=== PATIENT | male | born 1955 | race Caucasian/White ===

== ENCOUNTER → 2016-06-04 | Outpatient (CLI) | payer MEDICARE, OTHER ==
[2016-06-04 17:50] LABS: Basophils % (A) 1 %; CH 34.2; CHCM 32.6; Eosinophils # (A) 0.2 k/uL (0-0.7); Eosinophils % (A) 2 %; HCT 45.7 % (39.0-53.0); HDW 2.43; HGB 14.4 gm/dL (13.0-17.5); Luc # (Auto) 0.09; Luc % (Auto) 1; Lymphocytes # (A) 2.5 k/uL (1.0-4.8); Lymphocytes % (A) 32 %; MCH 33.2 pg (25.0-35.0); MCHC 31.5 g/dL (31.0-37.0); MCV 105.5 fL (80.0-100.0); Macrocytosis Slight; Mean Platelet Volume 7.4; Monocytes # (A) 0.4 k/uL (0-1.0); Monocytes % (A) 5 %; Neutrophils # (A) 4.6 k/uL (1.3-7.7); Neutrophils % (A) 60 %; RBC 4.33 m/uL (4.30-5.90); RDW 13.4 % (11.5-15.5); WBC 7.8 k/uL (3.8-10.6)
[2016-06-04 18:01] LABS: ALT 49 U/L (21-72); AST 35 U/L (17-59); Alkaline Phosphatase 60 U/L (38-126); Anion Gap 8 mmol/L; Blood Urea Nitrogen 16 mg/dL (9-20); Calcium 9.7 mg/dL (8.4-10.2); Carbon Dioxide 31 mmol/L (22-30); Chloride 105 mmol/L (98-107); Cholesterol 137 mg/dL (<200); Creatine Kinase 33 U/L (55-170); Glucose 86 mg/dL (74-99); HDL Cholesterol 31 mg/dL (40-60); Non-African American GFR(MDRD) >60 (>60 ml/min/1.73 sqM); Potassium 4.7 mmol/L (3.5-5.1); Sodium 144 mmol/L (137-145); Total Bilirubin 0.7 mg/dL (0.2-1.3); Total Protein 7.8 g/dL (6.3-8.2); Triglycerides 151 mg/dL (<150)
[2016-06-04 18:32] LABS: Hepatitis B Surface Ag Index 0.08
[2016-06-04 18:37] LABS: Hepatitis B Core IgM Index 0.03
[2016-06-04 18:51] LABS: Hepatitis C Virus IgG Ab Reactive (Negative)
[2016-06-04 19:39] LABS: Prostate Specific Antigen 1.43 ng/mL (0.00-4.00)
[2016-06-04 19:57] LABS: Vitamin B12 530 pg/mL (239-931)
[2016-06-04 20:44] LABS: Erythrocyte Sedimentation Rate 5 mm/hr (0-15)
[2016-06-05 06:48] LABS: HIV-1/HIV-2 Ab Screen NONREAC (NON REAC)
== END | disposition home or self-care (01) ==
LOC: LABWHC1 17:22
PROVIDERS: ATTEND Family Medicine
DX: Z00.00 Encounter for general adult medical examination without abnormal findings (principal); R35.1 Nocturia; Z11.59 Encounter for screening for other viral diseases
CPT/HCPCS: 36415; 80053; 80061; 80074; 82306; 82550; 82607; 84153; 84443; 85025; 85652; 87389

== ENCOUNTER 2016-06-17 22:19 | Emergency (ER) | payer MEDICARE, OTHER ==
[2016-06-17 22:38] VITALS: TEMP 98.2
[2016-06-17] MEDS ORDERED: NADOLOL 20 MG TAB PO STA ×2 (23:14→23:22)
[2016-06-17] MEDS ORDERED: ATORVASTATIN 40 MG TAB PO STA (23:23)
--- NOTE | 2016-06-17 23:28 | ED ---
General Adult HPI - General Chief complaint: Headache Stated complaint: High B/P Time Seen by Provider: 06/17/16 22:56 Source: patient, RN notes reviewed, old records reviewed Mode of arrival: ambulatory Limitations: no limitations - History of Present Illness Initial comments: Chief complaint history of present illness a 60-year-old male here with a request for his daily dose of nadolol and simvastatin. He's been off of them for 3 days his van broke down cannot get to the pharmacy where his new prescription waiting for him. Patient complains of headache. Vital signs are stable including blood pressure. Patient takes nadolol 40 mg daily. As well as simvastatin. - Related Data Home Medications Medication Instructions Recorded Confirmed Levothyroxine Sodium [Synthroid] 150 mcg PO DAILY 02/29/16 04/18/16 Simvastatin [Zocor] 40 mg PO DAILY 02/29/16 04/18/16 Nadolol 40 mg PO DAILY 03/19/16 04/18/16 Citalopram Hydrobromide [CeleXA] 40 mg PO DAILY 03/23/16 03/23/16 Levothyroxine Sodium [Synthroid] 75 mcg PO DAILY 03/23/16 03/23/16 Simvastatin [Zocor] 150 mg PO HS 03/23/16 03/24/16 Gabapentin 800 mg PO TID 03/24/16 03/24/16 Nadolol [Corgard] 20 mg PO BID 03/24/16 03/24/16 DULoxetine HCL [Cymbalta] 30 mg PO DAILY 04/18/16 04/18/16 DULoxetine HCL [Cymbalta] 60 mg PO HS 04/18/16 04/18/16 Fluticasone Nasal [place] [Flonase 1 spray EA NOSTRIL QAM 04/18/16 04/18/16 Nasal [place]] Hydrocodone/Acetaminophen [[place] 1 tab PO BID PRN 04/18/16 04/18/16 10-325] Previous Rx's Medication Instructions Recorded Cyclobenzaprine [Flexeril] 10 mg PO TID #20 tab 03/19/16 Dexamethasone 0.75 mg PO DIRECTED #12 tablet 03/19/16 HYDROcodone/APAP 5-325MG [[place] 1 tab PO Q6HR PRN #20 tab 03/24/16 5-325] Multivitamins, Thera [Multivitamin] 1 tab PO DAILY #30 tablet 03/24/16 Thiamine [Vitamin B-1] 100 mg PO BID@1200,1700 #30 tab 03/24/16 Allergies Allergy/AdvReac Type Severity Reaction Status Date / Time No Known Allergies Allergy Verified 06/17/16 22:38 Review of Systems ROS Statement: Those systems with pertinent positive or pertinent negative responses have been documented in the HPI. Review of systems patient complains of a headache. No visual acuity changes no stiff neck no nausea no vomiting no neuro deficits. All systems are reviewed. Past medical problems significant for abuse of medications including heroin and opiates prescription drugs also history of alcoholism. Medical problems include hyperlipidemia hypertension pneumonia or any thyroid disease. Surgeries back surgery and sats procedure. Family history noncontributory. No known ALLERGIES. Patient encouraged not to smoke does not drink. ROS Other: All systems not noted in ROS Statement are negative. Past Medical History Past Medical History: Hyperlipidemia, Hypertension, Pneumonia, Rheumatoid Arthritis (RA), Thyroid Disorder Additional Past Medical History / Comment(s): chronic back pain, arthritis, History of Any Multi-Drug Resistant Organisms: None Reported Past Surgical History: Back Surgery Additional Past Surgical History / Comment(s): VATS procedure many years ago, decompression and fusion L4-5 and L5-S1 with transforaminal lumbar interbody fusion Past Anesthesia/Blood Transfusion Reactions: No Reported Reaction Past Psychological History: Anxiety, Bipolar, Depression Smoking Status: Current every day smoker Past Alcohol Use History: Abuse, Heavy, None Reported Additional Past Alcohol Use History / Comment(s): Patient is a smoker one and half packs per day since he was 13 years of age. He has history of alcohol abuse and was drinking a case of beer and a half of a fifth per day but sober for 5 years. Recent use of heroin IV. He denies any marijuana or medical marijuana use. He states he is currently homeless. Past Drug Use History: Heroin, Opiates, Prescription Drug Abuse - Past Family History Father Additional Family Medical History / Comment(s): at age 85 from metastatic cancer of unknown primary. Brother(s) Additional Family Medical History / Comment(s): Patient states he had 10 brothers and sisters and all have passed from either alcoholism or old age. Daughter(s) Additional Family Medical History / Comment(s): Patient has 4 daughters and 2 sons with no major medical problems. Mother Family Medical History: No Reported History General Exam - General Exam Comments Initial Comments: General: The patient is awake and alert, in no distress, and does not appear acutely ill. States he has not had his nadolol for 3 days. Vital signs show temperature 98.2 respiratory rate 18 pulse 87 pulse ox 95% room air blood pressure 129/82. Mildly elevated systolic diastolic noted. Eye: Pupils are equal, round and reactive to light, extra-ocular movements are intact ; there is normal conjunctiva bilaterally. No signs of icterus. Ears, nose, mouth and throat: There are moist mucous membranes and no oral lesions. Neck: The neck is supple, there is no tenderness . Cardiovascular: There is a regular rate and rhythm. No murmur, rub or gallop is appreciated. Respiratory: Lungs are clear to auscultation, respirations are non-labored, breath sounds are equal. No wheezes, stridor, rales, or rhonchi. Gastrointestinal: Soft, non-distended, non-tender abdomen without masses or organomegaly noted. There is no rebound or guarding present. No CVA tenderness. Bowel sounds are unremarkable. Back: There is no tenderness to palpation in the midline. There is no obvious deformity. No rashes noted. Musculoskeletal: Normal ROM, no tenderness, There is no pedal edema. There is no calf tenderness or swelling. Sensation intact. Pulses equal bilaterally 2+. Neurological: No neuro deficits noted. Patient alert and oriented. No focal or lateralizing findings. Skin: Skin is warm and dry and no rashes or lesions are noted. Limitations: no limitations Course Vital Signs 06/17/16 22:36 Temperature 98.2 F Pulse Rate 87 Respiratory 18 Rate Blood Pressure 129/82 O2 Sat by Pulse 95 Oximetry Medical Decision Making - Medical Decision Making Medical decision making the patient will take 40 mg tonight he'll be given 40 mg tablet for Corgard tomorrow. And simvastatin this evening. He reports his medications awaiting for him at the pharmacy and he'll take a bus to get that tomorrow. Disposition Clinical Impression: Medication refill Disposition: HOME SELF-CARE Condition: Good Instructions: Medicine Refill (ED) Additional Instructions: Continue with her home medications. Follow-up with her family physician Time of Disposition: 23:28
[2016-06-17 23:45] VITALS: BP 138/81; PULSE 69; RESP 16
== END 2016-06-17 23:43 | disposition home or self-care (01) ==
LOC: EC 22:19
DX: Z76.0 Encounter for issue of repeat prescription (principal); R51 Headache; I10 Essential (primary) hypertension; Z79.899 Other long term (current) drug therapy; E78.5 Hyperlipidemia, unspecified; M06.9 Rheumatoid arthritis, unspecified; E07.9 Disorder of thyroid, unspecified; F41.9 Anxiety disorder, unspecified; F31.9 Bipolar disorder, unspecified; F17.200 Nicotine dependence, unspecified, uncomplicated; Z79.51 Long term (current) use of inhaled steroids; Z79.52 Long term (current) use of systemic steroids; Z59.0 Homelessness
CPT/HCPCS: 99283

== ENCOUNTER 2017-06-25 05:34 | Emergency (ER) | payer MEDICARE, OTHER ==
[2017-06-25 05:41] VITALS: RESP 18
[2017-06-25 06:32] LABS: Basophils # (A) 0.1 k/uL (0-0.2); Basophils % (A) 1 %; Eosinophils # (A) 0.2 k/uL (0-0.7); Eosinophils % (A) 3 %; HCT 43.5 % (39.0-53.0); HGB 14.1 gm/dL (13.0-17.5); Lymphocytes # (A) 2.6 k/uL (1.0-4.8); Lymphocytes % (A) 33 %; MCH 33.9 pg (25.0-35.0); MCHC 32.4 g/dL (31.0-37.0); MCV 104.6 fL (80.0-100.0); Macrocytosis Slight; Mean Platelet Volume 6.7; Monocytes # (A) 0.6 k/uL (0-1.0); Monocytes % (A) 7 %; Neutrophils # (A) 4.3 k/uL (1.3-7.7); Neutrophils % (A) 55 %; Platelet Count 209 k/uL (150-450); RBC 4.16 m/uL (4.30-5.90); RDW 13.8 % (11.5-15.5); WBC 7.9 k/uL (3.8-10.6)
[2017-06-25] MEDS ORDERED: MORPHINE SULFATE 4 MG/ML SYRINGE IV STA (06:40)
[2017-06-25 06:41] LABS: Appearance,Urine Clear (Clear); Bilirubin,Urine Negative (Negative); Blood,Urine Moderate (Negative); Color,Urine Yellow; Glucose,Urine (UA) Negative (Negative); Ketones,Urine Negative (Negative); Leukocyte Esterase,Urine Trace (Negative); Mucus,Urine Rare /hpf; Nitrite,Urine Negative (Negative); Protein,Urine Negative (Negative); RBC,Urine 88 /hpf (0-5); Specific Gravity,Urine 1.013 (1.001-1.035); Urobilinogen,Urine <2.0 mg/dL (<2.0); WBC,Urine 20 /hpf (0-5)
[2017-06-25 06:44] LABS: ALT 37 U/L (21-72); AST 37 U/L (17-59); Albumin 4.3 g/dL (3.5-5.0); Alkaline Phosphatase 63 U/L (38-126); Amylase 38 U/L (30-110); Anion Gap 12 mmol/L; Blood Urea Nitrogen 17 mg/dL (9-20); Calcium 9.6 mg/dL (8.4-10.2); Carbon Dioxide 26 mmol/L (22-30); Chloride 108 mmol/L (98-107); Glucose 131 mg/dL (74-99); Lipase 63 U/L (23-300); Potassium 4.5 mmol/L (3.5-5.1); Sodium 146 mmol/L (137-145); Total Bilirubin 0.5 mg/dL (0.2-1.3); Total Protein 7.9 g/dL (6.3-8.2)
--- NOTE | 2017-06-25 06:53 | ED ---
Abdominal Pain HPI - General Source: patient, EMS Mode of arrival: EMS Limitations: no limitations - History of Present Illness MD Complaint: abdominal pain Onset/Timin -: days(s) Location: LLQ Radiation: L flank Migration to: no migration Severity: severe Quality: sharp Consistency: constant Improves With: nothing Worsens With: nothing Associated Symptoms: constipation <Star Valerio - Last Filed: 06/25/17 06:53> <Vitaliy Gill - Last Filed: 06/25/17 08:29> - General Chief Complaint: Abdominal Pain Stated Complaint: Abdominal Pain Time Seen by Provider: 06/25/17 05:45 - History of Present Illness Initial Comments: This patient is a 61-year-old man who presents to be evaluated for left lower quadrant pain. He states that the pain first came on Saturday more moderate. He states that over the course of tonight the pain had intensified she decided to be seen here. He describes the pain as sharp, constant, and now severe intensity. He has not noted any relieving factors, and states that the pain is worse if he presses on it. Patient denies vomiting. He states that it has been approximately 3-4 days since his last bowel movement which is a little unusual for him. He denied any change in urination. There is no scrotal or testicular pain or swelling. No urethral discharge. (Star Vaelrio) - Related Data Home Medications Medication Instructions Recorded Confirmed Simvastatin [Zocor] 40 mg PO DAILY 02/29/16 06/25/17 RX: Nadolol 40 mg PO DAILY 03/19/16 06/25/17 RX: Gabapentin 800 mg PO TID 03/24/16 06/25/17 Hydrocodone/Acetaminophen [[place] 1 tab PO QID PRN 04/18/16 06/25/17 10-325] ALPRAZolam [Xanax] 2 mg PO HS PRN 06/25/17 06/25/17 Dextroamphetamine/Amphetamine 20 mg PO BID 06/25/17 06/25/17 [Adderall] Diazepam [Valium] 5 mg PO TID PRN 06/25/17 06/25/17 Levothyroxine Sodium [Synthroid] 150 mcg PO DAILY 06/25/17 06/25/17 Venlafaxine HCl [Effexor XR] 150 mg PO DAILY 06/25/17 06/25/17 Previous Rx's Medication Instructions Recorded RX: HYDROcodone/APAP 5-325MG 1 tab PO Q6HR PRN #20 tab 06/25/17 [[place] 5-325] RX: Naproxen [Naprosyn] 500 mg PO Q12HR PRN #30 tab 06/25/17 RX: Tamsulosin [Flomax] 0.4 mg PO DAILY #7 cap 06/25/17 Allergies Allergy/AdvReac Type Severity Reaction Status Date / Time No Known Allergies Allergy Verified 06/25/17 08:03 Review of Systems ROS Other: All systems not noted in ROS Statement are negative. Constitutional: Denies: fever, chills Respiratory: Denies: cough, dyspnea Cardiovascular: Denies: chest pain, palpitations, edema Gastrointestinal: Reports: abdominal pain, nausea, constipation. Denies: vomiting, diarrhea, melena, hematochezia Genitourinary: Denies: dysuria, frequency, hematuria, testicular pain, testicular mass Musculoskeletal: Denies: back pain Skin: Denies: rash Neurological: Denies: headache, weakness, numbness <Star Valerio - Last Filed: 06/25/17 06:53> ROS Other: All systems not noted in ROS Statement are negative. <Vitaliy Gill - Last Filed: 06/25/17 08:29> ROS Statement: Those systems with pertinent positive or pertinent negative responses have been documented in the HPI. Past Medical History Past Medical History: Hyperlipidemia, Hypertension, Pneumonia, Rheumatoid Arthritis (RA), Thyroid Disorder Additional Past Medical History / Comment(s): chronic back pain, arthritis, History of Any Multi-Drug Resistant Organisms: None Reported Past Surgical History: Back Surgery Additional Past Surgical History / Comment(s): VATS procedure many years ago, decompression and fusion L4-5 and L5-S1 with transforaminal lumbar interbody fusion Past Anesthesia/Blood Transfusion Reactions: No Reported Reaction Past Psychological History: Anxiety, Bipolar, Depression Smoking Status: Current every day smoker Past Alcohol Use History: Abuse, Heavy, None Reported Past Drug Use History: Heroin, Opiates, Prescription Drug Abuse - Past Family History Father Additional Family Medical History / Comment(s): at age 85 from metastatic cancer of unknown primary. Brother(s) Additional Family Medical History / Comment(s): Patient states he had 10 brothers and sisters and all have passed from either alcoholism or old age. Daughter(s) Additional Family Medical History / Comment(s): Patient has 4 daughters and 2 sons with no major medical problems. Mother Family Medical History: No Reported History <GregorStar iverson - Last Filed: 06/25/17 06:53> General Exam Limitations: no limitations General appearance: alert, in no apparent distress Head exam: Present: atraumatic, normocephalic Eye exam: Present: normal appearance. Absent: scleral icterus, conjunctival injection Respiratory exam: Present: normal lung sounds bilaterally. Absent: respiratory distress, wheezes, rales, rhonchi, stridor Cardiovascular Exam: Present: normal rhythm, bradycardia, normal heart sounds. Absent: systolic murmur, diastolic murmur, rubs, gallop GI/Abdominal exam: Present: soft. Absent: distended, tenderness, guarding, rebound, rigid, mass, pulsatile mass Extremities exam: Present: normal inspection, normal capillary refill. Absent: pedal edema, calf tenderness Back exam: Present: normal inspection. Absent: CVA tenderness (R), CVA tenderness (L) Neurological exam: Present: alert Skin exam: Present: warm, dry, intact, normal color. Absent: rash <ImanStar - Last Filed: 06/25/17 06:53> Course <ImanStar - Last Filed: 06/25/17 06:53> <Vitaliy Gill - Last Filed: 06/25/17 08:29> Vital Signs 06/25/17 06/25/17 05:35 07:16 Temperature 97.7 F 97.7 F Pulse Rate 54 L 56 L Respiratory 18 18 Rate Blood Pressure 155/77 155/77 O2 Sat by Pulse 100 98 Oximetry - Reevaluation(s) Reevaluation #1: 06/25/17 08:28 Is adequate pain control at this time (Vitaliy Gill) Medical Decision Making - Lab Data Result diagrams: 06/25/17 06:20 06/25/17 06:20 <ImanStar - Last Filed: 06/25/17 06:53> - Lab Data Result diagrams: 06/25/17 06:20 06/25/17 06:20 - Radiology Data Radiology results: report reviewed (CT abdomen and pelvis positive left kidney stone), image reviewed <Vitaliy Gill - Last Filed: 06/25/17 08:29> - Medical Decision Making 61 male the ER with left flank pain. Positive kidney stone. Patient discharged home with pain control, encouraged increased IV fluids and oral fluids (Vitaliy Gill) - Lab Data Lab Results 06/25/17 06/25/17 06/25/17 Range/Units 06:20 06:20 06:20 WBC 7.9 (3.8-10.6) k/uL RBC 4.16 L (4.30-5.90) m/uL Hgb 14.1 (13.0-17.5) gm/dL Hct 43.5 (39.0-53.0) % MCV 104.6 H (80.0-100.0) fL MCH 33.9 (25.0-35.0) pg MCHC 32.4 (31.0-37.0) g/dL RDW 13.8 (11.5-15.5) % Plt Count 209 (150-450) k/uL Neutrophils % 55 % Lymphocytes % 33 % Monocytes % 7 % Eosinophils % 3 % Basophils % 1 % Neutrophils # 4.3 (1.3-7.7) k/uL Lymphocytes # 2.6 (1.0-4.8) k/uL Monocytes # 0.6 (0-1.0) k/uL Eosinophils # 0.2 (0-0.7) k/uL Basophils # 0.1 (0-0.2) k/uL Macrocytosis Slight Sodium 146 H (137-145) mmol/L Potassium 4.5 (3.5-5.1) mmol/L Chloride 108 H (98-107) mmol/L Carbon Dioxide 26 (22-30) mmol/L Anion Gap 12 mmol/L BUN 17 (9-20) mg/dL Creatinine 1.07 (0.66-1.25) mg/dL Est GFR (MDRD) Af Amer >60 (>60 ml/min/1.73 sqM) Est GFR (MDRD) Non-Af >60 (>60 ml/min/1.73 sqM) Glucose 131 H (74-99) mg/dL Calcium 9.6 (8.4-10.2) mg/dL Total Bilirubin 0.5 (0.2-1.3) mg/dL AST 37 (17-59) U/L ALT 37 (21-72) U/L Alkaline Phosphatase 63 (38-126) U/L Total Protein 7.9 (6.3-8.2) g/dL Albumin 4.3 (3.5-5.0) g/dL Amylase 38 (30-110) U/L Lipase 63 (23-300) U/L Urine Color Yellow Urine Appearance Clear (Clear) Urine pH 6.0 (5.0-8.0) Ur Specific [place] 1.013 (1.001-1.035) Urine Protein Negative (Negative) Urine Glucose (UA) Negative (Negative) Urine Ketones Negative (Negative) Urine Blood Moderate H (Negative) Urine Nitrite Negative (Negative) Urine Bilirubin Negative (Negative) Urine Urobilinogen <2.0 (<2.0) mg/dL Ur Leukocyte Esterase Trace H (Negative) Urine RBC 88 H (0-5) /hpf Urine WBC 20 H (0-5) /hpf Urine Mucus Rare H (None) /hpf Disposition <Star Valerio - Last Filed: 06/25/17 06:53> <Vitaliy Gill - Last Filed: 06/25/17 08:29> Clinical Impression: Calculus of left kidney Disposition: HOME SELF-CARE Condition: Good Instructions: Kidney Stones (ED) Prescriptions: RX: HYDROcodone/APAP 5-325MG [[place] 5-325] 1 tab PO Q6HR PRN #20 tab PRN Reason: Pain RX: Naproxen [Naprosyn] 500 mg PO Q12HR PRN #30 tab PRN Reason: Pain RX: Tamsulosin [Flomax] 0.4 mg PO DAILY #7 cap Referrals: Sixto Moy MD [Primary Care Provider] - 1-2 days
--- NOTE | 2017-06-25 08:10 | CT ---
EXAMINATION TYPE: CT abdomen pelvis wo con DATE OF EXAM: 06/25/2017 COMPARISON: NONE HISTORY: 61-year-old male stabbing Lt sided pain CT DLP: 389.1 mGycm. Automated exposure control for dose reduction was used. TECHNIQUE: Contiguous axial scanning of the abdomen and pelvis without IV contrast. Coronal and sagit patricia reconstructions performed. FINDINGS: Ectatic ascending aorta at 3.8 cm. Coronary vessel calcifications are present and are remarkable for coronary artery disease. Heart normal size without pericardial effusion. Mild dependent atelectasis a t the lung bases. Suggestion of some calcifications or old surgical material right middle lobe. Noncontrast appearance of the liver, adrenal glands, right kidney, spleen, and pancreas appears withi n normal limits. Gallbladder is hydropic measuring 4.8 cm wide. There is mild left-sided hydronephrosis. Punctate 2 mm nonobstructive calculus in the left lower pole calyx. Mild left hydroureter with a 7 mm elongated calculus in the distal left ureter. Evta-au-iozyylem atherosclerotic calcifications within the abdominal aorta and iliac arteries. Mildly dilated single loop of jejunum in the left mid abdomen likely transient. No discrete transitio n point. No mesenteric or retroperitoneal lymphadenopathy. No free air or free fluid. Mild sigmoid diverticulosis. Moderate stool burden. No pericolonic inflammatory change. Prostate gland prominent at 4.6 cm wide. Central prostatic calcifications. Mild circumferential bladd er wall thickening. No abnormal fluid collection in the pelvis or pelvic lymphadenopathy. Bones: Degenerative changes of the hips. Posterior and interbody L4-S1 fusion changes. No osseous evert tructive process. IMPRESSION: 1. A 7 mm ovoid calculus at the distal left ureter with mild obstructive uropathy. 2. Hydropic gallbladder measuring 4.8 cm wide. This can be seen in the setting of fasting state. Cli nically correlate. If right upper quadrant pain or concern for early acute cholecystitis, follow-up u ltrasound or HIDA scan. 3. Mild circumferential bladder wall thickening could represent cystitis or chronic bladder wall hyp ertrophy. 4. Sigmoid diverticulosis. Moderate stool burden.
[2017-06-25] MEDS ORDERED: SODIUM CHLORIDE 0.9% 500 ML IV STA (08:26)
[2017-06-25] MEDS ORDERED: TAMSULOSIN 0.4 MG CAP.ER.24H PO STA (08:26)
[2017-06-25] MEDS ORDERED: KETOROLAC 30 MG/ML 1 ML VIAL IVP STA (08:26)
[2017-06-25 09:00] VITALS: BP 145/76; PULSE 76; TEMP 98
== END 2017-06-25 09:01 | disposition home or self-care (01) ==
LOC: EC 05:34
DX: N20.0 Calculus of kidney (principal); R00.1 Bradycardia, unspecified; K59.00 Constipation, unspecified; E78.5 Hyperlipidemia, unspecified; I10 Essential (primary) hypertension; F32.9 Major depressive disorder, single episode, unspecified; F41.9 Anxiety disorder, unspecified; E07.9 Disorder of thyroid, unspecified; F17.200 Nicotine dependence, unspecified, uncomplicated; Z79.899 Other long term (current) drug therapy
CPT/HCPCS: 36415; 80053; 82150; 83690; 85025; 81001; 74176; 99285; 96374; 96375; J2270; J1885

== ENCOUNTER 2017-07-03 10:42 | Inpatient (IN) | payer MEDICARE, MEDICAID ==
--- NOTE | 2017-07-03 11:44 | ED ---
General Adult HPI - General Chief complaint: Psychiatric Symptoms Stated complaint: MENTAL HEALTH Time Seen by Provider: 07/03/17 10:55 Source: patient, RN notes reviewed Mode of arrival: ambulatory Limitations: no limitations - History of Present Illness Initial comments: This is a 61-year-old male who presents emergency Department complaining that he is depressed and having suicidal thoughts. Patient states this is a chronic state for him over the last week since she's had to move out of his daughter's apartment he's been much more depressed and been thinking of suicide more often. Patient does not have a specific plan however he states it's not hurt to something such as jumping in front of a car. Patient denies any physical complaints today. Patient denies headache patient denies numbness weakness per patient denies lightheadedness dizziness or near syncopal episode. Patient denies chest pain difficulty breathing shortness of breath. Patient denies abdominal pain patient denies nausea vomiting diarrhea. - Related Data Home Medications Medication Instructions Recorded Confirmed Simvastatin [Zocor] 40 mg PO DAILY 02/29/16 07/03/17 Nadolol 40 mg PO DAILY 03/19/16 07/03/17 Gabapentin 800 mg PO TID 03/24/16 07/03/17 ALPRAZolam [Xanax] 2 mg PO HS PRN 06/25/17 07/03/17 Dextroamphetamine/Amphetamine 20 mg PO BID 06/25/17 07/03/17 [Adderall] Diazepam [Valium] 5 mg PO TID PRN 06/25/17 07/03/17 Levothyroxine Sodium [Synthroid] 150 mcg PO DAILY 06/25/17 07/03/17 Venlafaxine HCl [Effexor XR] 150 mg PO DAILY 06/25/17 07/03/17 methylPREDNISolone Dose Pack See Taper PO DAILY 07/03/17 07/03/17 [Medrol Dose Pack] Previous Rx's Medication Instructions Recorded HYDROcodone/APAP 5-325MG [[place] 1 tab PO Q6HR PRN #20 tab 06/25/17 5-325] Naproxen [Naprosyn] 500 mg PO Q12HR PRN #30 tab 06/25/17 Tamsulosin [Flomax] 0.4 mg PO DAILY #7 cap 06/25/17 Allergies Allergy/AdvReac Type Severity Reaction Status Date / Time No Known Allergies Allergy Verified 07/03/17 11:08 Review of Systems ROS Statement: Those systems with pertinent positive or pertinent negative responses have been documented in the HPI. ROS Other: All systems not noted in ROS Statement are negative. Past Medical History Past Medical History: Hyperlipidemia, Hypertension, Pneumonia, Rheumatoid Arthritis (RA), Thyroid Disorder Additional Past Medical History / Comment(s): chronic back pain, arthritis, History of Any Multi-Drug Resistant Organisms: None Reported Past Surgical History: Back Surgery Additional Past Surgical History / Comment(s): VATS procedure many years ago, decompression and fusion L4-5 and L5-S1 with transforaminal lumbar interbody fusion Past Anesthesia/Blood Transfusion Reactions: No Reported Reaction Past Psychological History: Anxiety, Bipolar, Depression Smoking Status: Current every day smoker Past Alcohol Use History: Abuse, Heavy, None Reported Past Drug Use History: Heroin, Opiates, Prescription Drug Abuse - Past Family History Father Additional Family Medical History / Comment(s): at age 85 from metastatic cancer of unknown primary. Brother(s) Additional Family Medical History / Comment(s): Patient states he had 10 brothers and sisters and all have passed from either alcoholism or old age. Daughter(s) Additional Family Medical History / Comment(s): Patient has 4 daughters and 2 sons with no major medical problems. Mother Family Medical History: No Reported History General Exam - General Exam Comments Initial Comments: GENERAL: Patient is well-developed and well-nourished. Patient is nontoxic and well- hydrated and is in no acute distress. ENT: Neck is soft and supple. No significant lymphadenopathy is noted. Oropharynx is clear. Moist mucous membranes. Neck has full range of motion without eliciting any pain. EYES: The sclera were anicteric and conjunctiva were pink and moist. Extraocular movements were intact and pupils were equal round and reactive to light. Eyelids were unremarkable. PULMONARY: Unlabored respirations. Good breath sounds bilaterally. No audible rales rhonchi or wheezing was noted. CARDIOVASCULAR: There is a regular rate and rhythm without any murmurs gallops or rubs. ABDOMEN: Soft and nontender with normal bowel sounds. SKIN: Skin is clear with no lesions or rashes and otherwise unremarkable. NEUROLOGIC: Patient is alert and oriented x3. Cranial nerves II through XII are grossly intact. Motor and sensory are also intact. Normal speech, volume and content. Symmetrical smile. MUSCULOSKELETAL: Normal extremities with adequate strength and full range of motion. LYMPHATICS: No significant lymphadenopathy is noted PSYCHIATRIC: Patient states he is depressed and been thinking of suicide more often. Patient does not have a specific plan. Limitations: no limitations Course Vital Signs 07/03/17 07/03/17 10:53 13:50 Temperature 98.6 F 98.7 F Pulse Rate 61 87 Respiratory 18 18 Rate Blood Pressure 208/97 129/67 O2 Sat by Pulse 99 98 Oximetry Medical Decision Making - Medical Decision Making EPS came down and evaluated the patient and determined that the patient needs to be admitted. - Lab Data Lab Results 07/03/17 Range/Units 13:46 Urine Opiates Screen Not Detected (NotDetected) Ur Oxycodone Screen Not Detected (NotDetected) Urine Methadone Screen Not Detected (NotDetected) Ur Propoxyphene Screen Not Detected (NotDetected) Ur Barbiturates Screen Not Detected (NotDetected) U Tricyclic Antidepress Not Detected (NotDetected) Ur Phencyclidine Scrn Not Detected (NotDetected) Ur Amphetamines Screen Not Detected (NotDetected) U Methamphetamines Scrn Not Detected (NotDetected) U Benzodiazepines Scrn Detected H (NotDetected) Urine Cocaine Screen Detected H (NotDetected) U Marijuana (THC) Screen Not Detected (NotDetected) Disposition Clinical Impression: Depression, Suicidal ideation Disposition: ADMITTED IP TO THIS HOSP Time of Disposition: 14:59
[2017-07-03] MEDS ORDERED: HYDROcodone/APAP 5-325MG 1 EACH TAB PO STA (12:00)
[2017-07-03 14:05] LABS: Amphetamine Screen,Urine Not Detected (NotDetected); Barbiturate Screen,Urine Not Detected (NotDetected); Benzodiazepines Screen,Urine Detected (NotDetected); Cocaine Screen,Urine Detected (NotDetected); Methadone Screen, Urine Not Detected (NotDetected); Opiate Screen,Urine Not Detected (NotDetected); Oxycodone Screen, Urine Not Detected (NotDetected); Phencyclidine Screen,Urine Not Detected (NotDetected); Tricyclic Antidepressant,Urine Not Detected (NotDetected); Urn Cannabinoid Scrn Not Detected (NotDetected)
[2017-07-03] MEDS ORDERED: ACETAMINOPHEN TAB 325 MG TAB PO PRN (14:41)
[2017-07-03] MEDS ORDERED: MAG HYDROX/AL HYDROX/SIMETH 30 ML CUP PO PRN (14:41)
[2017-07-03] MEDS ORDERED: MAGNESIUM HYDROXIDE 2,400 MG/10 ML CUP PO PRN (14:41)
[2017-07-03] MEDS ORDERED: ZIPRASIDONE 20 MG VIAL IM PRN (14:41)
[2017-07-03 15:12] VITALS: BMI 26.0
[2017-07-03] MEDS: NICOTINE 21MG/24HR PATCH TRANSDERM SCH (15:27)
[2017-07-03] MEDS: GABAPENTIN 400 MG CAP PO SCH ×2 (15:27→21:06)
[2017-07-03] MEDS: LORazepam 1 MG TAB PO SCH ×2 (15:28→21:06)
--- NOTE | 2017-07-03 23:45 | P.MDCNMH ---
History of Present Illness H&P Date: 07/03/17 Chief Complaint: Depression Patient is a 61-year-old male with a known history of depression, hyperlipidemia , hypothyroidism, rheumatoid arthritis and chronic leg and back pain and history of sciatic nerve pain as well as smoking was admitted to hospital with depression and suicidal ideation.Patient states this is a chronic state for him over the last week since she's had to move out of his daughter's apartment he's been much more depressed and been thinking of suicide more often. Patient does not have a specific plan however he states it's not hurt to something such as jumping in front of a car. Patient denies any physical complaints today. Patient denies headache patient denies numbness weakness per patient denies lightheadedness dizziness or near syncopal episode. Patient denies chest pain difficulty breathing shortness of breath. Patient denies abdominal pain patient denies nausea vomiting diarrhea. Patient states he takes [place] and Valium and Neurontin at home. UDS is positive for benzodiazepines and cocaine Review of Systems Constitutional: Patient denies any fever or chills . No generalized weakness or weight loss. Abdomen: Patient denied nausea vomiting and diarrhea and abdominal pain. Cardiovascular: Patient denies any chest pain or short of breath no palpitations. Respiratory: patient denied any cough is from production. No shortness of breath Neurologic: Patient denied any numbness or tingling headache. Musculoskeletal: Patient denies any complaints of joint swelling or deformity. Skin: Negative Psychiatric: Depressive Endocrine: No heat or cold intolerance. No recent weight gain. Genitourinary: No dysuria or hematuria. All other 14 point ROS negative except the above Past Medical History Past Medical History: Hyperlipidemia, Hypertension, Pneumonia, Rheumatoid Arthritis (RA), Thyroid Disorder Additional Past Medical History / Comment(s): chronic back pain, arthritis, History of Any Multi-Drug Resistant Organisms: None Reported Past Surgical History: Back Surgery Additional Past Surgical History / Comment(s): VATS procedure many years ago, decompression and fusion L4-5 and L5-S1 with transforaminal lumbar interbody fusion Past Anesthesia/Blood Transfusion Reactions: No Reported Reaction Past Psychological History: Anxiety, Bipolar, Depression Smoking Status: Current every day smoker Past Alcohol Use History: Abuse, Heavy, None Reported Additional Past Alcohol Use History / Comment(s): Patient is a smoker one and half packs per day since he was 13 years of age. He has history of alcohol abuse and was drinking a case of beer and a half of a fifth per day but sober for 5 years. Use of heroin a few months ago. He denies any marijuana or medical marijuana use. He states he is currently homeless. Past Drug Use History: Heroin, Opiates, Prescription Drug Abuse - Past Family History Father Additional Family Medical History / Comment(s): at age 85 from metastatic cancer of unknown primary. Brother(s) Additional Family Medical History / Comment(s): Patient states he had 10 brothers and sisters and all have passed from either alcoholism or old age. Daughter(s) Additional Family Medical History / Comment(s): Patient has 4 daughters and 2 sons with no major medical problems. Mother Family Medical History: No Reported History Medications and Allergies Home Medications Medication Instructions Recorded Confirmed Type Simvastatin [Zocor] 40 mg PO DAILY 02/29/16 07/03/17 History Nadolol 40 mg PO DAILY 03/19/16 07/03/17 History Gabapentin 800 mg PO TID 03/24/16 07/03/17 History ALPRAZolam [Xanax] 2 mg PO HS PRN 06/25/17 07/03/17 History Dextroamphetamine/Amphetamine 20 mg PO BID 06/25/17 07/03/17 History [Adderall] Diazepam [Valium] 5 mg PO TID PRN 06/25/17 07/03/17 History HYDROcodone/APAP 5-325MG [[place] 1 tab PO Q6HR PRN #20 tab 06/25/17 07/03/17 Rx 5-325] Levothyroxine Sodium [Synthroid] 150 mcg PO DAILY 06/25/17 07/03/17 History Tamsulosin [Flomax] 0.4 mg PO DAILY #7 cap 06/25/17 07/03/17 Rx Venlafaxine HCl [Effexor XR] 150 mg PO DAILY 06/25/17 07/03/17 History methylPREDNISolone Dose Pack See Taper PO DAILY 07/03/17 07/03/17 History [Medrol Dose Pack] Allergies Allergy/AdvReac Type Severity Reaction Status Date / Time No Known Allergies Allergy Verified 07/03/17 15:12 Physical Exam Vitals: Vital Signs Temp Pulse Pulse Resp BP BP Pulse Ox 03/07/18 15:04 97.6 F 54 L 20 128/73 07/03/17 13:50 98.7 F 87 18 129/67 98 07/03/17 10:53 98.6 F 61 18 208/97 99 Intake and Output 07/03/17 07/03/17 07/04/17 14:59 22:59 06:59 Other: Weight 74.843 kg 77.791 kg Patient Weight 07/04/17 06:59 Weight 77.791 kg PHYSICAL EXAMINATION: Patient is lying in the bed comfortably, no acute distress, awake alert and oriented.. HEENT: Normocephalic. Neck is supple. Pupils reactive. Nostrils clear. Oral cavity is moist. Ears reveal no drainage. Neck reveals no JVD, carotid bruits, or thyromegaly. CHEST EXAMINATION: Trachea is central. Symmetrical expansion. Lung brandon clear to auscultation and percussion. CARDIAC: Normal S1, S2 with no gallops. No murmurs ABDOMEN: Soft. Bowel sounds normal. No organomegaly. No abdominal bruits. Extremities: reveal no edema. No clubbing or cyanosis Neurologically awake, alert, oriented x3 with well-coordinated movements. No focal deficits noted Skin: No rash or skin lesions. Psychiatric: Coperative. Nonsuicidal at this time. Depressed Musculoskeletal: No joint swelling or deformity. Normal range of motion. Cranial Nerve Examination - Cranial Nerves Cranial Nerve I- Olfactory: Intact Cranial Nerve II- Optic: Intact Cranial Nerve III- Oculomotor: Intact Cranial Nerve IV- Trochlear: Intact Cranial Nerve V- Trigeminal: Intact Cranial Nerve - Abducens: Intact Cranial Nerve VII- Facial: Intact Cranial Nerve VIII- Auditory: Intact Cranial Nerve IX- Glossopharyngeal: Intact Cranial Nerve X- Vagus: Intact Cranial Nerve XI- Accessory: Intact Cranial Nerve XII- Hypoglossal: Intact Results Labs: Abnormal Lab Results - Last 24 Hours (Table) 07/03/17 Range/Units 13:46 U Benzodiazepines Scrn Detected H (NotDetected) Urine Cocaine Screen Detected H (NotDetected) Assessment and Plan Assessment: Depression with suicidal ideation Polysubstance abuse with UDS positive for benzodiazepines and cocaine Nicotine addiction Hypertension Hyperlipidemia Hypothyroidism History of rheumatoid arthritis Sciatic nerve pain Chronic leg and back pain Plan: Patient will be continued on home medications including Narco for pain. Will hold benzodiazepines and monitor for any withdrawals. Continue the pain management. Otherwise continue the current management and further recommendations based on the clinical course. Patient was counseled for substance abuse as well as nicotine addiction. We will continue to follow with you Thank you for your consult Time with Patient: Greater than 30
[2017-07-04] MEDS: LEVOTHYROXINE 75 MCG TAB PO SCH (06:08)
[2017-07-04] MEDS: LORazepam 1 MG TAB PO SCH ×3 (08:34→20:45)
[2017-07-04] MEDS: GABAPENTIN 400 MG CAP PO SCH ×3 (08:34→20:45)
[2017-07-04] MEDS: NICOTINE 21MG/24HR PATCH TRANSDERM SCH (08:34)
[2017-07-04] MEDS: TAMSULOSIN 0.4 MG CAP.ER.24H PO SCH (08:34)
[2017-07-04] MEDS: HYDROcodone/APAP 5-325MG 1 EACH TAB PO PRN ×3 (08:35→20:47)
[2017-07-04] MEDS: ATORVASTATIN 20 MG TAB PO SCH (08:35)
[2017-07-04 09:47] LABS: Basophils % (A) 0 %; Eosinophils # (A) 0.1 k/uL (0-0.7); Eosinophils % (A) 1 %; HCT 39.4 % (39.0-53.0); HGB 13.3 gm/dL (13.0-17.5); Lymphocytes # (A) 2.4 k/uL (1.0-4.8); Lymphocytes % (A) 27 %; MCH 34.7 pg (25.0-35.0); MCHC 33.7 g/dL (31.0-37.0); MCV 102.8 fL (80.0-100.0); Macrocytosis Slight; Mean Platelet Volume 7.1; Monocytes # (A) 0.4 k/uL (0-1.0); Monocytes % (A) 4 %; Neutrophils # (A) 6.1 k/uL (1.3-7.7); Neutrophils % (A) 66 %; Platelet Count 282 k/uL (150-450); RBC 3.84 m/uL (4.30-5.90); RDW 13.8 % (11.5-15.5); WBC 9.1 k/uL (3.8-10.6)
[2017-07-04 10:05] LABS: Albumin 3.9 g/dL (3.5-5.0); Potassium 5.4 mmol/L (3.5-5.1); Total Bilirubin 0.5 mg/dL (0.2-1.3); Total Protein 7.1 g/dL (6.3-8.2)
[2017-07-04] MEDS: SERTRALINE 50 MG TAB PO SCH (10:27)
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
[2017-07-04] MEDS ORDERED: LACTULOSE 20 GM/30 ML CUP PO ONE (13:15)
[2017-07-04] MEDS: CARBAMIDE PEROXIDE 6.5% DROPS 15 ML BTL BOTH EARS SCH ×2 (14:47→20:54)
[2017-07-04 18:33] LABS: Hemoglobin A1C 5.8 % (4.0-6.0)
[2017-07-05] MEDS: LEVOTHYROXINE 75 MCG TAB PO SCH (06:23)
[2017-07-05] MEDS: ATORVASTATIN 20 MG TAB PO SCH (08:36)
[2017-07-05] MEDS: TAMSULOSIN 0.4 MG CAP.ER.24H PO SCH (08:37)
[2017-07-05] MEDS: GABAPENTIN 400 MG CAP PO SCH ×3 (08:39→21:42)
[2017-07-05] MEDS: SERTRALINE 50 MG TAB PO SCH (08:39)
[2017-07-05] MEDS: NICOTINE 21MG/24HR PATCH TRANSDERM SCH (08:39)
[2017-07-05] MEDS: CARBAMIDE PEROXIDE 6.5% DROPS 15 ML BTL BOTH EARS SCH ×3 (08:40→21:42)
[2017-07-05] MEDS: LORazepam 1 MG TAB PO SCH ×3 (08:40→21:48)
[2017-07-05] MEDS: HYDROcodone/APAP 5-325MG 1 EACH TAB PO PRN ×2 (08:41→15:32)
[2017-07-05] MEDS: SENNOSIDES 8.6 MG TAB PO PRN (08:41)
--- NOTE | 2017-07-05 08:57 | P.PN ---
Progress Note - Text Interval history: The patient is found in his room he follows me to an interview room. He spontaneously states "everything the same I don't feel any different" he refers to having a continued depressed mood with hopelessness thinking. He continues to endorse feelings of anhedonia. He did sleep last night he is eating. He reports that he attended some groups. He is doubtful that he will be able to learn anything that will help him. We reviewed his psychotropic medications specifically the Zoloft that was just started. His questions were answered. Mental status exam: The patient is alert he is a mildly disheveled appearance he is dressed in his own clothing. Eye contact is appropriate. Speech is fluent spontaneous nonpressured. Thought process can be circumstantial he demonstrates no tangential thinking loose associations or flight of ideas today. He does not appear hypomanic or manic. He continues to have hopelessness thinking with ongoing suicidal thoughts. He reports no homicidal ideation intent or plan. He is endorsing no auditory or visual hallucinations or any specific delusions. Affect is bland and is congruent to reported mood. He is oriented to person place and date today. Plan: The patient will continue on his current psychotropic medication. We will monitor him for safety. He is encouraged to attend all groups. He requires continued psychiatric hospitalization. Vital signs reviewed.
[2017-07-05] MEDS: NAPROXEN 250 MG TAB PO PRN (14:54)
[2017-07-05] MEDS ORDERED: SODIUM POLYSTYRENE SULFONATE 15 GM/60 ML BOTTLE PO STA (21:28)
[2017-07-06] MEDS: LEVOTHYROXINE 75 MCG TAB PO SCH (05:55)
[2017-07-06] MEDS: NICOTINE 21MG/24HR PATCH TRANSDERM SCH (08:57)
[2017-07-06] MEDS: SERTRALINE 50 MG TAB PO SCH (08:57)
[2017-07-06] MEDS: TAMSULOSIN 0.4 MG CAP.ER.24H PO SCH (08:57)
[2017-07-06] MEDS: ATORVASTATIN 20 MG TAB PO SCH (08:57)
[2017-07-06] MEDS: GABAPENTIN 400 MG CAP PO SCH ×3 (08:57→20:41)
[2017-07-06] MEDS: LORazepam 1 MG TAB PO SCH ×3 (08:57→20:41)
[2017-07-06] MEDS: HYDROcodone/APAP 5-325MG 1 EACH TAB PO PRN (09:00)
[2017-07-06] MEDS: CARBAMIDE PEROXIDE 6.5% DROPS 15 ML BTL BOTH EARS SCH ×2 (09:10→20:41)
[2017-07-06 09:46] LABS: Potassium 4.9 mmol/L (3.5-5.1)
[2017-07-06] MEDS: SENNOSIDES 8.6 MG TAB PO PRN (11:12)
[2017-07-06] MEDS: NAPROXEN 250 MG TAB PO PRN (11:53)
--- NOTE | 2017-07-06 15:38 | P.PN ---
Progress Note - Text Interval history: The patient is found in his room he follows me to an interview room. He describes his mood as "so-so". He indicates he's having significant pain in his leg and requests that his [place] be increased. He states he slept last night appetite stable he has been attending groups. We reviewed his psychotropic medication. His questions were answered. Mental status exam: The patient is alert he stressors unclothing he reports his mood continues to be depressed he continues to have hopelessness thinking with some suicidal thoughts but feels safe in the hospital. He is endorsing no homicidal ideation he is reporting no auditory or visual hallucinations. Thought processes more direct today. Insight and judgment limited. He is oriented to person place and date. He demonstrates no verbal or physical aggressiveness. Plan: The patient will continue on his current medications we will titrate his pain medication further. We will monitor him for safety and encourage his participation in the milieu. I will consider titrating the Zoloft further during the course of the hospitalization. Vital signs reviewed.
[2017-07-06] MEDS: HYDROcodone/APAP 7.5-325MG 1 EACH TAB PO PRN (16:10)
[2017-07-07] MEDS: LEVOTHYROXINE 75 MCG TAB PO SCH (06:20)
[2017-07-07] MEDS: NICOTINE 21MG/24HR PATCH TRANSDERM SCH (08:14)
[2017-07-07] MEDS: ATORVASTATIN 20 MG TAB PO SCH (08:14)
[2017-07-07] MEDS: CARBAMIDE PEROXIDE 6.5% DROPS 15 ML BTL BOTH EARS SCH ×2 (08:14→20:26)
[2017-07-07] MEDS: GABAPENTIN 400 MG CAP PO SCH ×3 (08:15→20:26)
[2017-07-07] MEDS: TAMSULOSIN 0.4 MG CAP.ER.24H PO SCH (08:15)
[2017-07-07] MEDS: SERTRALINE 50 MG TAB PO SCH (08:15)
[2017-07-07] MEDS: HYDROcodone/APAP 7.5-325MG 1 EACH TAB PO PRN ×2 (08:16→15:19)
[2017-07-07] MEDS: LORazepam 1 MG TAB PO SCH ×3 (08:16→20:26)
[2017-07-07] MEDS: FLUTICASONE 50MCG/SPRAY NASAL 16GM EA NOSTRIL PRN (08:16)
--- NOTE | 2017-07-07 10:15 | P.PN ---
Progress Note - Text Interval history: The patient is found in his room he follows me to an interview room. He reports his mood is "down" he reports he slept last night appetite is stable. He continues to feel depressed he still has suicidal thoughts. He reports he has been attending some groups. He has no questions regarding medications. Mental status exam: The patient is alert he has a disheveled appearance he is dressed in his own clothing. Eye contact is appropriate speech is fluent. He mainly answers questions asked briefly. He has little spontaneous speech today. Affect is more withdrawn today. He is endorsing continued suicidal thoughts but no homicidal ideation intent or plan. He is endorsing no auditory or visual hallucinations or any specific delusions. He demonstrates no verbal or physical aggressiveness. He demonstrates no tangential thinking loose associations or flight of ideas. Insight and judgment limited. Plan: The patient will continue on his current medications. We will monitor him for safety and encourage his participation in the milieu. Vital signs reviewed.
[2017-07-07] MEDS: NAPROXEN 250 MG TAB PO PRN (15:21)
[2017-07-07 19:18] LABS: Amorphous Sediment,Urine Occasional /hpf; Appearance,Urine Clear (Clear); Bilirubin,Urine Negative (Negative); Blood,Urine Moderate (Negative); Color,Urine Yellow; Glucose,Urine (UA) Negative (Negative); Ketones,Urine Negative (Negative); Leukocyte Esterase,Urine Negative (Negative); Nitrite,Urine Negative (Negative); Protein,Urine Negative (Negative); RBC,Urine 108 /hpf (0-5); Specific Gravity,Urine 1.011 (1.001-1.035); Squamous Epithelial Cell,Urine <1 /hpf (0-4)
[2017-07-08] MEDS: LEVOTHYROXINE 75 MCG TAB PO SCH (06:16)
[2017-07-08] MEDS: ATORVASTATIN 20 MG TAB PO SCH (08:09)
[2017-07-08] MEDS: TAMSULOSIN 0.4 MG CAP.ER.24H PO SCH (08:09)
[2017-07-08] MEDS: NICOTINE 21MG/24HR PATCH TRANSDERM SCH (08:09)
[2017-07-08] MEDS: CARBAMIDE PEROXIDE 6.5% DROPS 15 ML BTL BOTH EARS SCH ×2 (08:09→23:16)
[2017-07-08] MEDS: LORazepam 1 MG TAB PO SCH ×3 (08:09→21:28)
[2017-07-08] MEDS: GABAPENTIN 400 MG CAP PO SCH ×3 (08:09→21:28)
[2017-07-08] MEDS: SERTRALINE 50 MG TAB PO SCH (08:10)
[2017-07-08] MEDS: HYDROcodone/APAP 7.5-325MG 1 EACH TAB PO PRN ×3 (08:11→21:27)
--- NOTE | 2017-07-08 11:21 | P.PN ---
Progress Note - Text Interval history: The patient is found in group he follows me to an interview room. He reports his mood is "so-so". He states there is times of the day where he feels better and then others were he feels hopeless again. He continues to feel unsupported outside of the hospital. We reviewed his medication. We discussed that we would likely titrate the dose tomorrow. He is agreeable. He has been attending groups. Appetite stable he is sleeping at night. Mental status exam: The patient is alert he is dressed in his own clothing hygiene grooming adequate. Eye contact is appropriate. He endorses a mood that is "so-so" affect is bland. He will intermittently have some suicidal thinking but feels safe here in the hospital. He will intermittently have some hopelessness thinking. No homicidal ideation intent or plan. He is endorsing no auditory or visual hallucinations or any specific delusions. He does not appear tangential she demonstrates no flight of ideas or loose associations. Insight and judgment limited. Plan: The patient will continue on his current medication however we will titrate the Zoloft to 100 mg. Vital signs reviewed. He is encouraged to continue participating in group. We will continue monitor him for safety.
--- NOTE | 2017-07-08 15:48 | PN ---
PROGRESS NOTE DATE OF SERVICE: 07/08/2017 PRESENTING COMPLAINT: Depression. INTERVAL HISTORY: This patient is in the psych unit with depression and suicidal ideation. Feeling better; has been up and about, tolerating his diet. He does tell me that his pain medication has been dropped in the psych unit, but otherwise he appears rather comfortable. When I walked into the room he was sitting up and watching television. REVIEW OF SYSTEMS: Done for constitutional, cardiovascular, GI, pulmonary; relevant findings as above. The patient has been eating well, sleeping well. CURRENT MEDICATIONS: Current medications are reviewed that include: 1. Lipitor. 2. Neurontin. 3. [place] 7.5. 4. Synthroid. 5. Naproxen. 6. Nicotine patch. 7. Zoloft. 8. Flomax. PHYSICAL EXAMINATION: Temperature 97.7, pulse 50, respiration 16, blood pressure 135/85, pulse ox 98% on room air. GENERAL APPEARANCE: Sitting up, comfortable. EYES: Pupils equal. Conjunctivae normal. HEENT: External appearance of nose and ears normal. Oral cavity normal. NECK: JVD not raised. Mass not palpable. RESPIRATORY: Effort normal. LUNGS: Slightly decreased breath sounds. CARDIOVASCULAR: First and second sounds normal. No edema. ABDOMEN: Soft, non-tender. Liver and spleen not palpable. PSYCHIATRY: Alert and oriented x3. Mood and affect normal. INVESTIGATIONS: Potassium 4.9. ASSESSMENT: 1. Hyperlipidemia. 2. Essential hypertension. 3. Hypothyroid. 4. Chronic nicotine dependence. Patient is a cigarette smoker. 5. Benign prostatic hypertrophy. 6. Major depressive disorder, recurrent, severe, without psychosis. 7. Generalized anxiety disorder. 8. Alcohol use disorder, being followed by Psychiatry. PLAN: Care was discussed with the patient. I told him to keep active. He appears rather comfortable on his current medications. He should follow up with his family doctor upon discharge, should stay on his nicotine patch, with which he appears to be doing well. Thank you, Dr. Gonzalez. NUHA / FRANKLINN: [id number] /
[2017-07-09] MEDS: LEVOTHYROXINE 75 MCG TAB PO SCH (07:00)
[2017-07-09] MEDS: NICOTINE 21MG/24HR PATCH TRANSDERM SCH (08:35)
[2017-07-09] MEDS: CARBAMIDE PEROXIDE 6.5% DROPS 15 ML BTL BOTH EARS SCH ×2 (08:36→21:26)
[2017-07-09] MEDS: GABAPENTIN 400 MG CAP PO SCH ×3 (08:36→21:16)
[2017-07-09] MEDS: ATORVASTATIN 20 MG TAB PO SCH (08:36)
[2017-07-09] MEDS: TAMSULOSIN 0.4 MG CAP.ER.24H PO SCH (08:36)
[2017-07-09] MEDS: SERTRALINE 100 MG TAB PO SCH (08:36)
[2017-07-09] MEDS: HYDROcodone/APAP 7.5-325MG 1 EACH TAB PO PRN ×3 (08:37→22:30)
[2017-07-09] MEDS: LORazepam 1 MG TAB PO SCH ×3 (08:44→21:16)
--- NOTE | 2017-07-09 09:43 | P.PN ---
Progress Note - Text Interval history: The patient is found in his room he follows me to an interview room. He reports his mood is improving. He states he is starting to look forward to going home. Appetite stable sleep stable. He reports selectively attending groups. We reviewed his psychotropic medication. His questions were answered. Vital signs reviewed. He is hoping social work can help him arrange some resources in the community. He is feeling less hopeless and reports no suicidal ideation today. Mental status exam: The patient is alert he has a disheveled appearance hygiene is adequate he is dressed in his own clothing. Eye contact is appropriate. Speech is fluent spontaneous nonpressured. He reports his mood is improving. He is endorsing no suicidal thoughts today. No homicidal ideation intent or plan. He is endorsing no auditory or visual hallucinations or any specific delusions. There is no observed evidence of psychosis. He demonstrates no tangential thinking loose associations or flight of ideas. He does not appear hypomanic or manic. Insight and judgment appear to be improving. He is oriented to person place and date. Plan: The patient's will continue on his current psychotropic medication. We will consider discharging him in the next 1-2 days if he demonstrates continued stability. We will monitor him for safety he is encouraged participate in the milieu.
[2017-07-10] MEDS: LEVOTHYROXINE 75 MCG TAB PO SCH (06:26)
[2017-07-10 06:52] VITALS: BP 104/69; PULSE 68; RESP 16; TEMP 97.6
[2017-07-10] MEDS: NICOTINE 21MG/24HR PATCH TRANSDERM SCH (09:09)
[2017-07-10] MEDS: GABAPENTIN 400 MG CAP PO SCH (09:09)
[2017-07-10] MEDS: LORazepam 1 MG TAB PO SCH (09:09)
[2017-07-10] MEDS: ATORVASTATIN 20 MG TAB PO SCH (09:09)
[2017-07-10] MEDS: TAMSULOSIN 0.4 MG CAP.ER.24H PO SCH (09:09)
[2017-07-10] MEDS: SERTRALINE 100 MG TAB PO SCH (09:09)
[2017-07-10] MEDS: HYDROcodone/APAP 7.5-325MG 1 EACH TAB PO PRN (09:11)
[2017-07-10] MEDS: FLUTICASONE 50MCG/SPRAY NASAL 16GM EA NOSTRIL PRN (09:12)
--- NOTE | 2017-07-10 09:43 | P.DS ---
Providers Date of admission: 07/03/17 14:36 Expected date of discharge: 07/10/17 Attending physician: Josue Gonzalez Consults: 07/03/17 14:41 Consult Physician Routine Consulting Provider: Marcus Stanton Consult Reason/Comments: H and P Do you want consulting provider notified?: Yes Primary care physician: Sixto Moy - Discharge Diagnosis(es) (1) Major depressive disorder, recurrent severe without psychotic features Current Visit: Yes Status: Acute Priority: High (2) Generalized anxiety disorder Current Visit: Yes Status: Acute Priority: Medium Hospital Course: Brief summary of admission note: This patient is a 61-year-old male who was admitted to the mental health unit through the emergency room for suicidal ideation. He reported a plan of walking in front of a moving vehicle or overdosing on heroin. He reports having a depressed mood for most of his life and it seemed to be progressively getting worse recently. He reported regular tearfulness impaired sleep low energy and low appetite. He stated he felt hopeless and did not enjoy anything in life. He felt that his depression was fueled by ongoing chronic pain in his leg. He underwent a back surgery which he considers a failure. For full details please refer to my a psychiatric evaluation dated 07/04/2017. Summary of hospital course: The patient was admitted to the mental health unit he did sign in voluntarily. We reviewed his presenting symptoms and medication options. We decided to change his antidepressant to Zoloft and this was titrated to 100 mg daily during the course of his admission. Ativan was provided for anxiety symptoms. Adderall was not given and his [place] was reduced to 7.5 mg. The patient reported a progressive improvement of symptoms while here. He demonstrated appropriate sleep at night he was participating in meals. He attended some groups. He states that his suicidal thoughts have resolved. He does not wish to participate in inpatient chemical dependency treatment and states the cocaine use was very recent and brief. We discussed the fact that he has been taking several medications that are habit-forming. Our treatment goal is to initiate the Zoloft to address his anxiety better and hopefully in the outpatient setting he will be able taper off of his Valium. The patient described having no support that we were able to contact during the hospitalization. He was seen by internal medicine for routine history and physical exam. Mental status exam: The patient is alert he is dressed in his own clothing hygiene grooming adequate. Eye contact is appropriate. Speech is fluent spontaneous nonpressured. He reports his mood is improved. Affect is brighter. He denies having any suicidal or homicidal ideation intent or plan. He is reporting no auditory or visual hallucinations he is endorsing no specific delusions. There is no observed evidence of psychosis. He demonstrates no tangential thinking loose associations or flight of ideas he does not appear hypomanic or manic. He demonstrates no verbal or physical aggressiveness. He is oriented to person place and date. He demonstrates future oriented thinking. He spontaneously states he plans on attending [facility] for outpatient follow-up. Impressions 1. Major depressive disorder recurrent severe without psychosis, generalized anxiety disorder, alcohol use disorder in sustained remission, rule out opiate use disorder 2. Medical comorbidities include chronic pain, hypertension, hyperlipidemia, hypothyroidism 3. Limited social support Plan: The patient will be discharged mental health unit today to return to his own residence. Social work will arrange his outpatient mental health follow- up. He does not wish participate in any inpatient chemical dependency treatment and states he will address these issues as an outpatient. We will continue Zoloft 100 mg daily he will resume using his Valium as prescribed by his primary care physician. He is instructed to taper that down as the Zoloft demonstrate efficacy for his anxiety. We will not continue the Adderall. His primary care physician will manage his [place] for pain. We were able to reduce the dose to 7.5 mg while here. There is no imminent safety risk the patient is appropriate for transition outpatient care. He is instructed to return to the hospital with any acute safety concerns. Patient Condition at Discharge: Stable Plan - Discharge Summary Discharge Rx Participant: No New Discharge Prescriptions: New Nicotine 21Mg/24Hr Patch [Habitrol] 1 patch TRANSDERM DAILY #12 patch Sertraline [Zoloft] 100 mg PO DAILY #30 tab Continue Simvastatin [Zocor] 40 mg PO DAILY Nadolol 40 mg PO DAILY Gabapentin 800 mg PO TID Levothyroxine Sodium [Synthroid] 150 mcg PO DAILY Diazepam [Valium] 5 mg PO TID PRN PRN Reason: Anxiety HYDROcodone/APAP 5-325MG [[place] 5-325] 1 tab PO Q6HR PRN #20 tab PRN Reason: Pain Tamsulosin [Flomax] 0.4 mg PO DAILY #7 cap Discontinued Dextroamphetamine/Amphetamine [Adderall] 20 mg PO BID ALPRAZolam [Xanax] 2 mg PO HS PRN PRN Reason: Anxiety Venlafaxine HCl [Effexor XR] 150 mg PO DAILY methylPREDNISolone Dose Pack [Medrol Dose Pack] See Taper PO DAILY Discharge Medication List Simvastatin [Zocor] 40 mg PO DAILY 02/29/16 [History] Nadolol 40 mg PO DAILY 03/19/16 [History] Gabapentin 800 mg PO TID 03/24/16 [History] Diazepam [Valium] 5 mg PO TID PRN 06/25/17 [History] HYDROcodone/APAP 5-325MG [[place] 5-325] 1 tab PO Q6HR PRN #20 tab 06/25/17 [Rx] Levothyroxine Sodium [Synthroid] 150 mcg PO DAILY 06/25/17 [History] Tamsulosin [Flomax] 0.4 mg PO DAILY #7 cap 06/25/17 [Rx] Nicotine 21Mg/24Hr Patch [Habitrol] 1 patch TRANSDERM DAILY #12 patch 07/10/17 [ Rx] Sertraline [Zoloft] 100 mg PO DAILY #30 tab 07/10/17 [Rx] Follow up Appointment(s)/Referral(s): [facility] [Outside] - 1-2 Days (Please complete walk-in intake within 48 hours of hospital discharge. Hours: Wed, , Fri- 830-3) Sixto Moy MD [Primary Care Provider] - As Needed Patient Instructions/Handouts: Depression (GEN), Suicide Prevention for Adults (GEN) Activity/Diet/Wound Care/Special Instructions: Activity and diet as tolerated. Avoid the use of street drugs and alcohol. Take all medications as prescribed. When you are in need of refills on your medications please contact your medical provider and/or outpatient psychiatrist to have this done. Please go to scheduled outpatient appointment for aftercare treatment. If symptoms return or become worse call the crisis line at [phone] and/or go to the nearest emergency room for an evaluation.
[2017-07-10] MEDS: CARBAMIDE PEROXIDE 6.5% DROPS 15 ML BTL BOTH EARS SCH (10:02)
== END 2017-07-10 10:40 | disposition home or self-care (01) | DRG 885 ==
LOC: EC 10:42 → 3MHU 14:36
PROVIDERS: ADMIT Psychiatry & Neurology Psychiatry; ATTEND Psychiatry & Neurology Psychiatry
DX: F33.2 Major depressive disorder, recurrent severe without psychotic features (principal); R45.851 Suicidal ideations; E78.5 Hyperlipidemia, unspecified; I10 Essential (primary) hypertension; G89.29 Other chronic pain; M54.9 Dorsalgia, unspecified; M06.9 Rheumatoid arthritis, unspecified; M79.606 Pain in leg, unspecified; F17.210 Nicotine dependence, cigarettes, uncomplicated; Z62.810 Personal history of physical and sexual abuse in childhood; F41.1 Generalized anxiety disorder; F11.10 Opioid abuse, uncomplicated; F14.10 Cocaine abuse, uncomplicated; F13.10 Sedative, hypnotic or anxiolytic abuse, uncomplicated; N40.0 Benign prostatic hyperplasia without lower urinary tract symptoms; E03.9 Hypothyroidism, unspecified; M54.30 Sciatica, unspecified side; R45.84 Anhedonia; Z79.52 Long term (current) use of systemic steroids; Z79.899 Other long term (current) drug therapy; Z87.01 Personal history of pneumonia (recurrent); Z98.1 Arthrodesis status; Z72.89 Other problems related to lifestyle; Z71.51 Drug abuse counseling and surveillance of drug abuser; Z71.6 Tobacco abuse counseling; Z81.1 Family history of alcohol abuse and dependence; Z81.8 Family history of other mental and behavioral disorders
CPT/HCPCS: 80051; 80053; 80061; 80306; 81001; 82075; 83036; 84443; 85025; 99285

== ENCOUNTER 2017-07-21 10:39 | Emergency (ER) | payer MEDICARE, OTHER ==
[2017-07-21 10:45] VITALS: RESP 18; TEMP 97.3
[2017-07-21] MEDS ORDERED: KETOROLAC 30 MG/ML 1 ML VIAL IVP STA (11:06)
[2017-07-21] MEDS ORDERED: SODIUM CHLORIDE 0.9% 1,000 ML IV STA ×2 (11:06)
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
[2017-07-21 11:46] LABS: Basophils % (A) 1 %; Eosinophils # (A) 0.1 k/uL (0-0.7); Eosinophils % (A) 1 %; HCT 39.3 % (39.0-53.0); HGB 13.7 gm/dL (13.0-17.5); Lymphocytes # (A) 1.2 k/uL (1.0-4.8); Lymphocytes % (A) 18 %; MCH 35.2 pg (25.0-35.0); MCHC 34.9 g/dL (31.0-37.0); MCV 100.8 fL (80.0-100.0); Macrocytosis Slight; Mean Platelet Volume 6.9; Monocytes # (A) 0.3 k/uL (0-1.0); Monocytes % (A) 4 %; Neutrophils # (A) 5.1 k/uL (1.3-7.7); Neutrophils % (A) 75 %; Platelet Count 208 k/uL (150-450); RDW 13.5 % (11.5-15.5); WBC 6.9 k/uL (3.8-10.6)
[2017-07-21 11:53] LABS: ALT 37 U/L (21-72); AST 25 U/L (17-59); Albumin 3.9 g/dL (3.5-5.0); Alkaline Phosphatase 54 U/L (38-126); Amylase 32 U/L (30-110); Anion Gap 10 mmol/L; Blood Urea Nitrogen 14 mg/dL (9-20); Calcium 9.7 mg/dL (8.4-10.2); Carbon Dioxide 28 mmol/L (22-30); Chloride 109 mmol/L (98-107); Glucose 122 mg/dL (74-99); Lipase 73 U/L (23-300); Magnesium 1.8 mg/dL (1.6-2.3); Potassium 3.8 mmol/L (3.5-5.1); Sodium 147 mmol/L (137-145); Total Bilirubin 0.6 mg/dL (0.2-1.3); Total Protein 7.3 g/dL (6.3-8.2)
[2017-07-21 12:04] LABS: Creatine Kinase 54 U/L (55-170)
[2017-07-21 12:17] LABS: Creatine Kinase MB 0.5 ng/mL (0.0-2.4); Troponin I <0.012 ng/mL (0.000-0.034)
[2017-07-21 13:42] LABS: Amphetamine Screen,Urine Not Detected (NotDetected); Barbiturate Screen,Urine Not Detected (NotDetected); Benzodiazepines Screen,Urine Detected (NotDetected); Cocaine Screen,Urine Detected (NotDetected); Methadone Screen, Urine Not Detected (NotDetected); Opiate Screen,Urine Detected (NotDetected); Oxycodone Screen, Urine Not Detected (NotDetected); Phencyclidine Screen,Urine Not Detected (NotDetected); Tricyclic Antidepressant,Urine Not Detected (NotDetected); Urn Cannabinoid Scrn Not Detected (NotDetected)
[2017-07-21 14:09] VITALS: BP 139/77; PULSE 62
== END 2017-07-21 14:10 | disposition home or self-care (01) ==
LOC: EC 10:39
DX: F43.21 Adjustment disorder with depressed mood (principal); M54.5 Low back pain; G89.29 Other chronic pain; E78.5 Hyperlipidemia, unspecified; I10 Essential (primary) hypertension; E07.9 Disorder of thyroid, unspecified; M43.26 Fusion of spine, lumbar region; F17.200 Nicotine dependence, unspecified, uncomplicated; Z79.899 Other long term (current) drug therapy
CPT/HCPCS: 82075; 36415; 93005; 80053; 82150; 82550; 82553; 83690; 83735; 84484; 85025; 80306; 99285; 96374; 96361 ×2; J1885

== ENCOUNTER → 2018-01-27 | Outpatient (CLI) | payer MEDICARE, OTHER ==
--- NOTE | 2018-01-27 17:10 | MR ---
EXAMINATION TYPE: MR lumbar spine wo/w con DATE OF EXAM: 01/27/2018 COMPARISON: Plain film 03/19/2016 HISTORY: Radiculopathy TECHNIQUE: Multiplanar, multisequence images of the lumbar spine were acquired utilizing 7.5 mL intravenous Gada vist gadolinium contrast. L1-L2: Posterior broad-based disc bulge causes only minimal anterior mass effect on the thecal sac. N o significant central stenosis or foraminal encroachment. L2-L3: Posterior broad-based disc bulge causes mild anterior mass effect on the thecal sac. No signif icant foraminal encroachment. Only mild spinal stenosis. There is some facet arthropathy change. L3-L4: There is posterior broad-based disc bulge causing anterior mass effect on the thecal sac. Face t arthropathy with hypertrophy of ligamentum flavum results in a trefoil appearance to the thecal sac , there is mild to moderate central stenosis. No significant foraminal encroachment. L4-L5: Posterior extension of endplate disc complex causes minimal anterior mass effect on the thecal sac, no significant central stenosis. No significant foraminal encroachment. L5-S1: Posterior broad-based disc bulge does not show any significant mass effect or sac, circumferen tial extension endplate disc complex encroaches on the foramina left greater than right Lumbar segments are intact. No paraspinal masses are identified. Conus medullaris has a normal appe arance. There is multilevel spondylosis with endplate discogenic marrow signal change. Lumbar vertebr al bodies show preserved height. Posterior lumbar fusion L4-S1 is present, the transpedicular screws, susceptibility artifact. Loss of disc height present L4-5 and L5-S1, partial ankylosis present L4-5. Multilevel Schmorl's node formation present at endplates. No abnormal enhancement on contrast admini stration. IMPRESSION: Degenerative disc disease, postop changes, spinal stenosis greatest at L3-4. Additional findings roger ann
== END | disposition home or self-care (01) ==
LOC: RADMRIMAIN 13:07
PROVIDERS: ATTEND Psychiatry & Neurology Neurology
DX: M48.061 Spinal stenosis, lumbar region without neurogenic claudication (principal); M51.17 Intervertebral disc disorders with radiculopathy, lumbosacral region; M47.26 Other spondylosis with radiculopathy, lumbar region; M46.96 Unspecified inflammatory spondylopathy, lumbar region; M48.8X6 Other specified spondylopathies, lumbar region; M24.28 Disorder of ligament, vertebrae; M51.46 Schmorl's nodes, lumbar region; Z98.1 Arthrodesis status
CPT/HCPCS: 82565; 84520; 72158; 36415; A9581

== ENCOUNTER 2018-07-23 14:20 | Emergency (ER) | payer MEDICARE, OTHER ==
[2018-07-23 14:28] VITALS: BP 150/84; PULSE 93; RESP 16; TEMP 97.9
[2018-07-23] MEDS ORDERED: KETOROLAC 60 MG/2 ML VIAL IM STA (14:55)
--- NOTE | 2018-07-23 15:01 | ED ---
General Adult HPI - General Chief complaint: Recheck/Abnormal Lab/Rx Stated complaint: High BP, out of meds, back pain Time Seen by Provider: 07/23/18 14:39 Source: patient, RN notes reviewed Mode of arrival: ambulatory Limitations: no limitations - History of Present Illness Initial comments: 62-year-old male presents emergency Department with chief complaint of needing medication refill. Patient states that he may have is a lisinopril 5 mg. Patient states he has an appointment with PCP on August 06. Patient denies any current chest pain, hypertension, headache, dizziness, nausea vomiting. Patient has chronic back pain in which he takes Percocet for. Patient states he received started with a new pain management. Patient states that the Percocet that helping and is requesting a Toradol injection. Patient denies any bowel bladder incontinence or retention. Denies any saddle anesthesias. - Related Data Home Medications Medication Instructions Recorded Confirmed Simvastatin [Zocor] 40 mg PO DAILY 02/29/16 07/21/17 Nadolol 40 mg PO DAILY 03/19/16 07/21/17 Gabapentin 800 mg PO TID 03/24/16 07/21/17 Diazepam [Valium] 5 mg PO TID PRN 06/25/17 07/21/17 Levothyroxine Sodium [Synthroid] 150 mcg PO DAILY 06/25/17 07/21/17 Previous Rx's Medication Instructions Recorded HYDROcodone/APAP 5-325MG [[place] 1 tab PO Q6HR PRN #20 tab 06/25/17 5-325] Tamsulosin [Flomax] 0.4 mg PO DAILY #7 cap 06/25/17 Sertraline [Zoloft] 100 mg PO DAILY #30 tab 07/10/17 Ketorolac [Toradol] 10 mg PO Q8HR #15 tab 07/23/18 Allergies Allergy/AdvReac Type Severity Reaction Status Date / Time No Known Allergies Allergy Verified 07/23/18 14:28 Review of Systems ROS Statement: Those systems with pertinent positive or pertinent negative responses have been documented in the HPI. ROS Other: All systems not noted in ROS Statement are negative. Past Medical History Past Medical History: Hyperlipidemia, Hypertension, Pneumonia, Rheumatoid Arthritis (RA), Thyroid Disorder Additional Past Medical History / Comment(s): chronic back pain, arthritis, History of Any Multi-Drug Resistant Organisms: None Reported Past Surgical History: Back Surgery Additional Past Surgical History / Comment(s): VATS procedure many years ago, decompression and fusion L4-5 and L5-S1 with transforaminal lumbar interbody fusion Past Anesthesia/Blood Transfusion Reactions: No Reported Reaction Past Psychological History: Anxiety, Bipolar, Depression Smoking Status: Current every day smoker Past Alcohol Use History: Abuse, Heavy, None Reported Past Drug Use History: Heroin, Opiates, Prescription Drug Abuse - Past Family History Father Additional Family Medical History / Comment(s): at age 85 from metastatic cancer of unknown primary. Brother(s) Additional Family Medical History / Comment(s): Patient states he had 10 brothers and sisters and all have passed from either alcoholism or old age. Daughter(s) Additional Family Medical History / Comment(s): Patient has 4 daughters and 2 sons with no major medical problems. Mother Family Medical History: No Reported History General Exam Limitations: no limitations General appearance: alert, in no apparent distress Head exam: Present: atraumatic, normocephalic, normal inspection Respiratory exam: Present: normal lung sounds bilaterally. Absent: respiratory distress, wheezes, rales, rhonchi, stridor Cardiovascular Exam: Present: regular rate, normal rhythm, normal heart sounds. Absent: systolic murmur, diastolic murmur, rubs, gallop, clicks Extremities exam: Present: normal inspection, full ROM, normal capillary refill. Absent: tenderness, pedal edema, joint swelling, calf tenderness Back exam: Present: full ROM, tenderness, paraspinal tenderness. Absent: vertebral tenderness Neurological exam: Present: alert, oriented X3, CN II-XII intact, reflexes normal. Absent: motor sensory deficit Course Vital Signs 07/23/18 14:26 Temperature 97.9 F Pulse Rate 93 Respiratory 16 Rate Blood Pressure 150/84 O2 Sat by Pulse 96 Oximetry Medical Decision Making - Medical Decision Making 62-year-old male presented for medication refill, chronic back pain. Patient given Toradol in emergency department. Patient discharged with Toradol oral tablets and we given prescriptions prescription for lisinopril. Return parameters were discussed. Disposition Clinical Impression: Encounter for medication refill, Chronic back pain, Hypertension Disposition: HOME SELF-CARE Condition: Stable Instructions (If sedation given, give patient instructions): Hypertension (ED) Additional Instructions: Please return to the Emergency Department if symptoms worsen or any other concerns. Prescriptions: Ketorolac [Toradol] 10 mg PO Q8HR #15 tab Is patient prescribed a controlled substance at d/c from ED?: No Referrals: None,Stated [Primary Care Provider] - 1-2 days Time of Disposition: 15:01
== END 2018-07-23 15:36 | disposition home or self-care (01) ==
LOC: EC 14:20
DX: Z76.0 Encounter for issue of repeat prescription (principal); G89.29 Other chronic pain; M54.9 Dorsalgia, unspecified; I10 Essential (primary) hypertension; E78.5 Hyperlipidemia, unspecified; E07.9 Disorder of thyroid, unspecified; F17.200 Nicotine dependence, unspecified, uncomplicated; Z98.890 Other specified postprocedural states; Z98.1 Arthrodesis status; Z79.890 Hormone replacement therapy; Z79.899 Other long term (current) drug therapy
CPT/HCPCS: 99283; 96372; J1885

== ENCOUNTER 2018-08-26 17:00 | Emergency (ER) | payer MEDICARE, OTHER ==
[2018-08-26 17:14] VITALS: BP 129/70; PULSE 61; RESP 18; TEMP 98.5
--- NOTE | 2018-08-26 17:44 | ED ---
General Adult HPI - General Chief complaint: Recheck/Abnormal Lab/Rx Stated complaint: 4 med refills Time Seen by Provider: 08/26/18 17:16 Source: patient, RN notes reviewed Mode of arrival: ambulatory Limitations: no limitations - History of Present Illness Initial comments: 62-year-old male presents to the emergency Department for a medication refill. Patient states he is changing doctors. States he has an appointment with Dr. Vance on September 25 and is also trying to get into Dr. Burton. Patient states he needs a refill for simvastatin, Synthroid, lisinopril, and Zoloft. Denies any complaints at this time. States he is simply here for his medication refills. Patient has no other complaints at this time including shortness of breath, ches t pain, abdominal pain, nausea or vomiting, headache, or visual changes. - Related Data Home Medications Medication Instructions Recorded Confirmed Nadolol 40 mg PO DAILY 03/19/16 08/26/18 Gabapentin 800 mg PO TID 03/24/16 08/26/18 Diazepam [Valium] 5 mg PO TID PRN 06/25/17 08/26/18 Ketorolac [Toradol] 10 mg PO Q8HR PRN 08/26/18 08/26/18 Previous Rx's Medication Instructions Recorded HYDROcodone/APAP 5-325MG [[place] 1 tab PO Q6HR PRN #20 tab 06/25/17 5-325] Tamsulosin [Flomax] 0.4 mg PO DAILY #7 cap 06/25/17 Levothyroxine Sodium [Synthroid] 150 mcg PO DAILY #30 tablet 08/26/18 Lisinopril [Zestril] 5 mg PO DAILY #30 tab 08/26/18 Sertraline [Zoloft] 100 mg PO DAILY #30 tab 08/26/18 Simvastatin [Zocor] 40 mg PO DAILY #30 tab 08/26/18 Allergies Allergy/AdvReac Type Severity Reaction Status Date / Time No Known Allergies Allergy Verified 08/26/18 17:30 Review of Systems ROS Statement: Those systems with pertinent positive or pertinent negative responses have been documented in the HPI. ROS Other: All systems not noted in ROS Statement are negative. Past Medical History Past Medical History: Hyperlipidemia, Hypertension, Pneumonia, Rheumatoid Arthritis (RA), Thyroid Disorder Additional Past Medical History / Comment(s): chronic back pain, arthritis, History of Any Multi-Drug Resistant Organisms: None Reported Past Surgical History: Back Surgery Additional Past Surgical History / Comment(s): VATS procedure many years ago, decompression and fusion L4-5 and L5-S1 with transforaminal lumbar interbody fusion Past Anesthesia/Blood Transfusion Reactions: No Reported Reaction Past Psychological History: Anxiety, Bipolar, Depression Smoking Status: Current every day smoker Past Alcohol Use History: Abuse, Heavy, None Reported Past Drug Use History: Heroin, Opiates, Prescription Drug Abuse - Past Family History Father Additional Family Medical History / Comment(s): at age 85 from metastatic cancer of unknown primary. Brother(s) Additional Family Medical History / Comment(s): Patient states he had 10 brothers and sisters and all have passed from either alcoholism or old age. Daughter(s) Additional Family Medical History / Comment(s): Patient has 4 daughters and 2 sons with no major medical problems. Mother Family Medical History: No Reported History General Exam Limitations: no limitations General appearance: alert, in no apparent distress Head exam: Present: atraumatic, normocephalic, normal inspection Eye exam: Present: normal appearance, PERRL, EOMI. Absent: scleral icterus, conjunctival injection, periorbital swelling ENT exam: Present: normal exam, mucous membranes moist Neck exam: Present: normal inspection. Absent: tenderness, meningismus, lymphadenopathy Respiratory exam: Present: normal lung sounds bilaterally. Absent: respiratory distress, wheezes, rales, rhonchi, stridor Cardiovascular Exam: Present: regular rate, normal rhythm, normal heart sounds. Absent: systolic murmur, diastolic murmur, rubs, gallop, clicks Neurological exam: Present: alert, oriented X3, CN II-XII intact Psychiatric exam: Present: normal affect, normal mood Course Vital Signs 08/26/18 17:12 Temperature 98.5 F Pulse Rate 61 Respiratory 18 Rate Blood Pressure 129/70 O2 Sat by Pulse 95 Oximetry Medical Decision Making - Medical Decision Making 62-year-old male presents for medication refill. States he does not have any complaints today but is not able to get into a new doctor until September 25. States he has an appointment with Dr. Vance at that time. States he is trying to get into see Dr. Harris earlier. Patient would like a refill on simvastatin, Synthroid, lisinopril, Zoloft. I did refill these for 30 days until he can see his new primary care provider. Patient will follow up with them for further refills. He will return here if he has any other problems. Disposition Clinical Impression: Medication refill Disposition: HOME SELF-CARE Condition: Good Instructions (If sedation given, give patient instructions): Medicine Refill (ED) Additional Instructions: Please see your doctor for further refills on your scheduled appointment. Please return here for any worsening symptoms. Prescriptions: Levothyroxine Sodium [Synthroid] 150 mcg PO DAILY #30 tablet Lisinopril [Zestril] 5 mg PO DAILY #30 tab Simvastatin [Zocor] 40 mg PO DAILY #30 tab Sertraline [Zoloft] 100 mg PO DAILY #30 tab Is patient prescribed a controlled substance at d/c from ED?: No Referrals: Zena Vance MD [STAFF PHYSICIAN] - 1-2 days Harshil Burton MD [STAFF PHYSICIAN] - 1-2 days Time of Disposition: 17:42
== END 2018-08-26 17:57 | disposition home or self-care (01) ==
LOC: EC 17:00
DX: Z76.0 Encounter for issue of repeat prescription (principal); I10 Essential (primary) hypertension; F17.200 Nicotine dependence, unspecified, uncomplicated; Z79.899 Other long term (current) drug therapy
CPT/HCPCS: 99281

== ENCOUNTER 2019-01-15 15:41 | Emergency (ER) | payer MEDICARE, OTHER ==
[2019-01-15 18:15] VITALS: BP 138/96; PULSE 77; RESP 16
[2019-01-15] MEDS ORDERED: CEPHALEXIN 500MG STARTER PACK 4 CAP BTL PO STA (18:32)
--- NOTE | 2019-01-15 18:32 | ED ---
General Adult HPI - General Chief complaint: Skin/Abscess/Foreign Body Stated complaint: rash/cuts on scalp Time Seen by Provider: 01/15/19 17:04 Source: patient, RN notes reviewed, old records reviewed Mode of arrival: ambulatory Limitations: no limitations - History of Present Illness Initial comments: 63-year-old male patient past history significant for hypertension since ED chief complaint of skin excoriations on her chest and her ongoing for a year. Reports girlfriend also has similar symptoms. Patient denies any other complaints at this time. Systemic: Pt denies fatigue, fever/chills, rash. Pt denies weakness, night sweats, weight loss. Neuro: Pt denies headache, visual disturbances, syncope or pre-syncope. HEENT: Pt denies ocular discharge or irritation, otalgia, rhinorrhea, pharyngitis or notable lymphadenopathy. Cardiopulmonary: Pt denies chest pain, SOB, heart palpitations, dyspnea on exertion. Abdominal/GI: Pt denies abdominal pain, n/v/d. : Pt denies dysuria, burning w/ urination, frequency/urgency. Denies new onset urinary or bowel incontinence. MSK: Pt denies myalgia, loss of strength or function in extremities. Neuro: Pt denies new onset weakness, paresthesias. - Related Data Home Medications Medication Instructions Recorded Confirmed Nadolol 40 mg PO DAILY 03/19/16 08/26/18 Gabapentin 800 mg PO TID 03/24/16 08/26/18 Diazepam [Valium] 5 mg PO TID PRN 06/25/17 08/26/18 Ketorolac [Toradol] 10 mg PO Q8HR PRN 08/26/18 08/26/18 Previous Rx's Medication Instructions Recorded HYDROcodone/APAP 5-325MG [[place] 1 tab PO Q6HR PRN #20 tab 06/25/17 5-325] Tamsulosin [Flomax] 0.4 mg PO DAILY #7 cap 06/25/17 Levothyroxine Sodium [Synthroid] 150 mcg PO DAILY #30 tablet 08/26/18 Lisinopril [Zestril] 5 mg PO DAILY #30 tab 08/26/18 Sertraline [Zoloft] 100 mg PO DAILY #30 tab 08/26/18 Simvastatin [Zocor] 40 mg PO DAILY #30 tab 08/26/18 Cephalexin [Keflex] 500 mg PO Q6HR 7 Days #28 cap 01/15/19 Permethrin 1% Creme Rinse [Nix 1 applicate TOPICAL ONCE 1 Days #1 01/15/19 Creme Rinse] bottle Allergies Allergy/AdvReac Type Severity Reaction Status Date / Time No Known Allergies Allergy Verified 01/15/19 16:28 Review of Systems ROS Statement: Those systems with pertinent positive or pertinent negative responses have been documented in the HPI. ROS Other: All systems not noted in ROS Statement are negative. Past Medical History Past Medical History: Hyperlipidemia, Hypertension, Pneumonia, Rheumatoid Arthritis (RA), Thyroid Disorder Additional Past Medical History / Comment(s): chronic back pain, arthritis, History of Any Multi-Drug Resistant Organisms: None Reported Past Surgical History: Back Surgery Additional Past Surgical History / Comment(s): VATS procedure many years ago, decompression and fusion L4-5 and L5-S1 with transforaminal lumbar interbody fusion Past Anesthesia/Blood Transfusion Reactions: No Reported Reaction Past Psychological History: Anxiety, Bipolar, Depression Smoking Status: Current every day smoker Past Alcohol Use History: Abuse, Heavy, None Reported Past Drug Use History: Cocaine, Heroin, Methamphetamine, Opiates, Prescription Drug Abuse - Past Family History Father Additional Family Medical History / Comment(s): at age 85 from metastatic cancer of unknown primary. Brother(s) Additional Family Medical History / Comment(s): Patient states he had 10 brothers and sisters and all have passed from either alcoholism or old age. Daughter(s) Additional Family Medical History / Comment(s): Patient has 4 daughters and 2 sons with no major medical problems. Mother Family Medical History: No Reported History General Exam - General Exam Comments Initial Comments: Constitutional: NAD, AOX3, Pt has pleasant affect. HEENT: NC/AT, trachea midline, neck supple, no lymphadenopathy. Posterior pharynx non erythematous, without exudates. External ears appear normal, without discharge. Mucous membranes moist. Eyes PERRLA, EOM intact. There is no scleral icterus. No pallor noted. Cardiopulmonary: RRR, no murmurs, rubs or gallops, no JVD noted. Lungs CTAB in anterior and posterior brandon. No peripheral edema. Abdominal exam: Abdomen soft and non-distended. Abdomen non-tender to palpation in all 4 quadrants. Bowel sounds active in LLQ. No hepatosplenomegaly. No e cchymosis Neuro: CN II-XII grossly intact. No nuchal rigidity. No raccon eyes, no major sign, no hemotympanum. No cervical spinal tenderness. MSK: No posterior calf tenderness bilaterally, homans sign negative bilaterally. Posterior tibialis and radial pulse +2 bilaterally. Sensation intact in upper and lower extremities. Full active ROM in upper and lower extremities, 5/5 stregnth. Derm: Skin excoriations noted on scalp. Limitations: no limitations Course Vital Signs 01/15/19 18:12 Pulse Rate 77 Respiratory 16 Rate Blood Pressure 138/96 O2 Sat by Pulse 99 Oximetry Medical Decision Making - Medical Decision Making 63-year-old male patient presents ED chief complaint skin excoriations on scalp for approximately one year. Patient vital signs stable, afebrile. Physical exam displayed skin excoriations. Patient will be treated for pediculosis capitis and provided Keflex to prevent superficial skin infection. Return precautions discussed. Case discussed with Dr. Jonse. Disposition Clinical Impression: Pediculosis capitis Disposition: HOME SELF-CARE Condition: Stable Instructions (If sedation given, give patient instructions): Pediculosis (ED) Additional Instructions: Patient to adhere to previously discussed treatment plan and will take medication(s) as directed. Patient to follow up with PCP in 1-2 days. Patient to return to ED if symptoms do not improve. Take Medication as directed. Follow-up with primary care provider tomorrow. Return to ER if condition worsens. Prescriptions: Cephalexin [Keflex] 500 mg PO Q6HR 7 Days #28 cap Permethrin 1% Creme Rinse [Nix Creme Rinse] 1 applicate TOPICAL ONCE 1 Days #1 bottle Is patient prescribed a controlled substance at d/c from ED?: No Referrals: None,Stated [Primary Care Provider] - 1-2 days [facility] [NON-STAFF] - 1-2 days
== END 2019-01-15 18:41 | disposition home or self-care (01) ==
LOC: EC 15:41
DX: B85.0 Pediculosis due to Pediculus humanus capitis (principal); I10 Essential (primary) hypertension; M19.90 Unspecified osteoarthritis, unspecified site; F41.9 Anxiety disorder, unspecified; F17.200 Nicotine dependence, unspecified, uncomplicated; Z79.899 Other long term (current) drug therapy; Z98.1 Arthrodesis status
CPT/HCPCS: 99283

== ENCOUNTER → 2019-01-15 | Outpatient (CLI) | payer MEDICARE, OTHER ==
[2019-01-15 16:20] LABS: HCT 40.6 % (39.0-53.0); HGB 13.6 gm/dL (13.0-17.5); MCH 32.5 pg (25.0-35.0); MCHC 33.4 g/dL (31.0-37.0); MCV 97.1 fL (80.0-100.0); Mean Platelet Volume 6.6; Platelet Count 259 k/uL (150-450); RBC 4.18 m/uL (4.30-5.90); RDW 13.8 % (11.5-15.5); WBC 3.9 k/uL (3.8-10.6)
[2019-01-15 16:35] LABS: Prothrombin Time 10.4 sec (9.0-12.0)
[2019-01-16 01:01] LABS: Albumin 4.4 g/dL (3.80-4.90); Albumin/Globulin Ratio 1.57 (1.60-3.17); Bilirubin, Conjugated 0.2 mg/dL (0.20-0.40); Bilirubin,Unconjugated 0.4 mg/dL; Globulin 2.8 g/dL (1.6-3.3); Total Bilirubin 0.6 mg/dL (0.2-1.2); Total Protein 7.2 g/dL (6.2-8.2)
[2019-01-19 16:05] LABS: HCV Qualitative Result DETECTED (Not detected); HCV Quant Log 6.52 (<1.08)
== END | disposition home or self-care (01) ==
LOC: LABWHC1 14:54
PROVIDERS: ATTEND Physician Assistant
DX: Z09 Encounter for follow-up examination after completed treatment for conditions other than malignant neoplasm (principal); R94.5 Abnormal results of liver function studies; Z86.19 Personal history of other infectious and parasitic diseases
CPT/HCPCS: 36415; 80076; 81596; 85027; 85610; 87522; 87902

== ENCOUNTER 2019-06-22 14:55 | Emergency (ER) | payer MEDICARE, OTHER ==
[2019-06-22 15:00] VITALS: BP 163/92; PULSE 82; RESP 20; TEMP 97.9
--- NOTE | 2019-06-22 15:28 | ED ---
Skin/Abscess/FB HPI - General Chief complaint: Skin/Abscess/Foreign Body Stated complaint: growth on neck Time Seen by Provider: 06/22/19 15:04 Source: patient Mode of arrival: ambulatory Limitations: no limitations - History of Present Illness Initial comments: 63-year-old male patient presents to the emergency department today for evaluation of scabbed lesions to the posterior scalp. Patient reports that he has had these lesions for the last year. Patient states the areas are painful and itchy. Patient states he does scratch them quite frequently. States he did see his primary care physician for this approximately 2 weeks ago was given a prescription for amoxicillin. Patient states he did complete the prescription, states it did seem to help somewhat but the symptoms and lesions are still there. States they do occasionally drain yellow drainage. He denies any fever or chills. Denies any swollen lymph nodes to the neck. Patient denies any recent fever, chills, shortness breath, chest pain, abdominal pain, nausea, vomiting, diarrhea, constipation, back pain, numbness, tingling, dizziness, weakness, hematuria, dysuria, urinary urgency, urinary frequency, headache, visual changes, or any other complaints. - Related Data Home Medications Medication Instructions Recorded Confirmed Nadolol 40 mg PO DAILY 03/19/16 08/26/18 Gabapentin 800 mg PO TID 03/24/16 08/26/18 Diazepam [Valium] 5 mg PO TID PRN 06/25/17 08/26/18 Ketorolac [Toradol] 10 mg PO Q8HR PRN 08/26/18 08/26/18 Previous Rx's Medication Instructions Recorded HYDROcodone/APAP 5-325MG [[place] 1 tab PO Q6HR PRN #20 tab 06/25/17 5-325] Tamsulosin [Flomax] 0.4 mg PO DAILY #7 cap 06/25/17 Levothyroxine Sodium [Synthroid] 150 mcg PO DAILY #30 tablet 08/26/18 Lisinopril [Zestril] 5 mg PO DAILY #30 tab 08/26/18 Sertraline [Zoloft] 100 mg PO DAILY #30 tab 08/26/18 Simvastatin [Zocor] 40 mg PO DAILY #30 tab 08/26/18 Cephalexin [Keflex] 500 mg PO Q6HR 7 Days #28 cap 01/15/19 Permethrin 1% Creme Rinse [Nix 1 applicate TOPICAL ONCE 1 Days #1 01/15/19 Creme Rinse] bottle Ketoconazole 2% Shampoo [Nizoral] 1 applic TOPICAL Q3D #200 ml 06/22/19 Mupirocin Calcium 2% Cream 1 applic TOPICAL TID #30 gm 06/22/19 [Bactroban 2% Cream] Sulfamethoxazole/Trimethoprim 1 each PO BID #20 tablet 06/22/19 [Bactrim DS 800-160 mg] diphenhydrAMINE [Benadryl] 25 mg PO QID PRN #40 capsule 06/22/19 Allergies Allergy/AdvReac Type Severity Reaction Status Date / Time No Known Allergies Allergy Verified 06/22/19 15:00 Review of Systems ROS Statement: Those systems with pertinent positive or pertinent negative responses have been documented in the HPI. ROS Other: All systems not noted in ROS Statement are negative. Past Medical History Past Medical History: Hyperlipidemia, Hypertension, Pneumonia, Rheumatoid Arthritis (RA), Thyroid Disorder Additional Past Medical History / Comment(s): chronic back pain, arthritis, History of Any Multi-Drug Resistant Organisms: None Reported Past Surgical History: Back Surgery Additional Past Surgical History / Comment(s): VATS procedure many years ago, decompression and fusion L4-5 and L5-S1 with transforaminal lumbar interbody fusion Past Anesthesia/Blood Transfusion Reactions: No Reported Reaction Past Psychological History: Anxiety, Bipolar, Depression Smoking Status: Current every day smoker Past Alcohol Use History: Abuse, Heavy Past Drug Use History: Cocaine, Heroin, Methamphetamine, Opiates, Prescription Drug Abuse - Past Family History Father Additional Family Medical History / Comment(s): at age 85 from metastatic cancer of unknown primary. Brother(s) Additional Family Medical History / Comment(s): Patient states he had 10 brothers and sisters and all have passed from either alcoholism or old age. Daughter(s) Additional Family Medical History / Comment(s): Patient has 4 daughters and 2 sons with no major medical problems. Mother Family Medical History: No Reported History General Exam Limitations: no limitations General appearance: alert, in no apparent distress, other (This is a well- developed, well-nourished adult male patient in no acute distress. Vital signs upon presentation are temperature 97.9F, pulse 82, respirations 20, blood pressure 163/92, pulse ox 99% on room air) Head exam: Present: other (There are multiple scabbed lesions noted to the posterior scalp near the neck. There is no surrounding erythema or swelling. There is no drainage currently.) Neck exam: Present: normal inspection. Absent: tenderness, meningismus, lymphadenopathy Respiratory exam: Present: normal lung sounds bilaterally. Absent: respiratory distress, wheezes, rales, rhonchi, stridor Cardiovascular Exam: Present: regular rate, normal rhythm, normal heart sounds. Absent: systolic murmur, diastolic murmur, rubs, gallop, clicks Neurological exam: Present: alert, oriented X3, CN II-XII intact Psychiatric exam: Present: normal affect, normal mood Skin exam: Present: warm, dry, intact, normal color. Absent: rash Course Vital Signs 06/22/19 06/22/19 14:56 16:03 Temperature 97.9 F 97.9 F Pulse Rate 82 82 Respiratory 20 20 Rate Blood Pressure 163/92 163/92 O2 Sat by Pulse 99 99 Oximetry Medical Decision Making - Medical Decision Making 63-year-old male patient presented to the emergency department today for evaluation of scabbed lesions to the left posterior scalp. Physical examination did reveal multiple scabbed lesions with no surrounding erythema or swelling. No drainage. My attending Dr. Heaton was in to evaluate the patient as well. Patient's symptoms and findings seem most consistent with neurodermatitis. He will be given a steroid shampoo to use every three days, bactroban cream to apply twice daily, and bactrim oral. He'll be discharged to follow-up with his primary care physician for recheck in 1-2 days. Return parameters were discussed in detail. He verbalizes understanding and agrees with this plan. Disposition Clinical Impression: Neurodermatitis Disposition: HOME SELF-CARE Condition: Good Instructions (If sedation given, give patient instructions): Dermatitis (ED) Additional Instructions: Use medications as directed. Alternate steroid solution with antibiotic ointment. Complete antibiotic prescription and full. Follow-up with the derm atologist for further evaluation as soon as possible. Follow up with her primary care physician for recheck in 1-2 days. Return to the emergency department immediately for any new, worsening, or concerning symptoms. Prescriptions: Sulfamethoxazole/Trimethoprim [Bactrim DS 800-160 mg] 1 each PO BID #20 tablet Mupirocin Calcium 2% Cream [Bactroban 2% Cream] 1 applic TOPICAL TID #30 gm diphenhydrAMINE [Benadryl] 25 mg PO QID PRN #40 capsule PRN Reason: Itching Ketoconazole 2% Shampoo [Nizoral] 1 applic TOPICAL Q3D #200 ml Is patient prescribed a controlled substance at d/c from ED?: No Referrals: [facility] [Primary Care Provider] - 1-2 days Time of Disposition: 15:28
== END 2019-06-22 16:03 | disposition home or self-care (01) ==
LOC: EC 14:55
DX: L28.0 Lichen simplex chronicus (principal); I10 Essential (primary) hypertension; M06.9 Rheumatoid arthritis, unspecified; G89.29 Other chronic pain; M54.9 Dorsalgia, unspecified; F11.10 Opioid abuse, uncomplicated; F14.10 Cocaine abuse, uncomplicated; F10.10 Alcohol abuse, uncomplicated; Z79.899 Other long term (current) drug therapy
CPT/HCPCS: 99283

== ENCOUNTER 2020-04-29 15:10 | Emergency (ER) | payer MEDICARE, OTHER ==
[2020-04-29 15:16] VITALS: RESP 18; TEMP 98.4
--- NOTE | 2020-04-29 15:29 | ED ---
General Adult HPI - General Stated complaint: Overdose Time Seen by Provider: 04/29/20 15:12 Source: patient, EMS, RN notes reviewed, old records reviewed Mode of arrival: ambulatory Limitations: no limitations - History of Present Illness Initial comments: 64-year-old male presents with suspected opiate overdose. Patient was found to be apneic, unresponsive with pinpoint pupils by EMS. IV was established and 2 mg of Narcan was administered. Patient became alert with spontaneous respiration. EMS had been called for this patient who does have a known history of heroin abuse. Patient was initially uncertain of what he had used but later reports that he had used IV heroin. No physical complaints. He states this was not a suicide attempt - Related Data Previous Rx's Medication Instructions Recorded Levothyroxine Sodium [Synthroid] 150 mcg PO DAILY #30 tablet 08/26/18 Simvastatin [Zocor] 40 mg PO DAILY #30 tab 08/26/18 lisinopriL [Zestril] 5 mg PO DAILY #30 tab 08/26/18 Naloxone HCl [Narcan] 4 mg NASAL ONCE PRN #1 unit 04/29/20 Allergies Allergy/AdvReac Type Severity Reaction Status Date / Time No Known Allergies Allergy Verified 01/21/20 13:20 Review of Systems ROS Statement: Those systems with pertinent positive or pertinent negative responses have been documented in the HPI. ROS Other: All systems not noted in ROS Statement are negative. Past Medical History Past Medical History: Hyperlipidemia, Hypertension, Pneumonia, Rheumatoid Arthritis (RA), Thyroid Disorder Additional Past Medical History / Comment(s): chronic back pain, arthritis, History of Any Multi-Drug Resistant Organisms: None Reported Past Surgical History: Back Surgery Additional Past Surgical History / Comment(s): VATS procedure many years ago, decompression and fusion L4-5 and L5-S1 with transforaminal lumbar interbody fusion Past Anesthesia/Blood Transfusion Reactions: No Reported Reaction Past Psychological History: Anxiety, Bipolar, Depression Smoking Status: Current every day smoker Past Alcohol Use History: Abuse, Heavy Past Drug Use History: Cocaine, Heroin, Methamphetamine, Opiates, Prescription Drug Abuse - Past Family History Father Additional Family Medical History / Comment(s): at age 85 from metastatic cancer of unknown primary. Brother(s) Additional Family Medical History / Comment(s): Patient states he had 10 brothers and sisters and all have passed from either alcoholism or old age. Daughter(s) Additional Family Medical History / Comment(s): Patient has 4 daughters and 2 sons with no major medical problems. Mother Family Medical History: No Reported History General Exam Limitations: no limitations General appearance: alert, in no apparent distress Head exam: Present: atraumatic, normocephalic Eye exam: Present: PERRL (3 mm bilaterally) Neck exam: Present: normal inspection Respiratory exam: Present: normal lung sounds bilaterally. Absent: respiratory distress Cardiovascular Exam: Present: regular rate, normal rhythm GI/Abdominal exam: Present: soft. Absent: distended, tenderness Extremities exam: Present: normal inspection, normal capillary refill. Absent: pedal edema Neurological exam: Present: alert, oriented X3, CN II-XII intact. Absent: motor sensory deficit Psychiatric exam: Absent: suicidal ideation Skin exam: Present: warm, dry, intact. Absent: cyanosis, diaphoretic Course Vital Signs 04/29/20 15:11 Temperature 98.4 F Pulse Rate 81 Respiratory 18 Rate Blood Pressure 153/96 O2 Sat by Pulse 99 Oximetry Medical Decision Making - Medical Decision Making Patient observed in the emergency department for one hour. No need for further Narcan administration. He does admit to IV heroin use. No other complaints from the patient, this was not a suicide attempt, it was an accidental overdose. Disposition Clinical Impression: Drug overdose, Heroin abuse Disposition: HOME SELF-CARE Condition: Fair Prescriptions: Naloxone HCl [Narcan] 4 mg NASAL ONCE PRN #1 unit PRN Reason: Opioid Reversal Is patient prescribed a controlled substance at d/c from ED?: No Referrals: None,Stated [Primary Care Provider] - 1-2 days Sujey Bassett MD [REFERRING] - 1-2 days
[2020-04-29 16:39] VITALS: BP 146/97; PULSE 88
== END 2020-04-29 17:06 | disposition home or self-care (01) ==
LOC: EC 15:10
DX: T40.1X1A Poisoning by heroin, accidental (unintentional), initial encounter (principal); F11.10 Opioid abuse, uncomplicated; F17.200 Nicotine dependence, unspecified, uncomplicated
CPT/HCPCS: 99284

== ENCOUNTER 2020-12-12 13:38 | Emergency (ER) | payer MEDICARE, OTHER ==
--- NOTE | 2020-12-12 13:41 | ED ---
General Adult HPI - General Stated complaint: Overdose Time Seen by Provider: 12/12/20 13:39 Source: patient, EMS, RN notes reviewed, old records reviewed - History of Present Illness Initial comments: 65-year-old male presents status post heroin overdose. Patient is to using IV heroin. Paramedics were called after the patient was found with agonal respirations after using IV heroin. He was administered 1 dose of intranasal Narcan. He received a BVM assistance for ventilation. He was transported by EMS alert. He did not require any further doses of Narcan. Patient states this was an accidental overdose. He has history of previous overdose in the past. No suicidal or homicidal ideation. No physical complaints. - Related Data Home Medications Medication Instructions Recorded Confirmed HYDROcodone/APAP 10-325MG [[place] 1 tab PO TID PRN 04/29/20 04/29/20 10-325] Previous Rx's Medication Instructions Recorded Levothyroxine Sodium [Synthroid] 150 mcg PO DAILY #30 tablet 08/26/18 Simvastatin [Zocor] 40 mg PO DAILY #30 tab 08/26/18 lisinopriL [Zestril] 5 mg PO DAILY #30 tab 08/26/18 Naloxone HCl [Narcan] 4 mg NASAL ONCE PRN #1 unit 04/29/20 Allergies Allergy/AdvReac Type Severity Reaction Status Date / Time No Known Allergies Allergy Verified 01/21/20 13:20 Review of Systems ROS Statement: Those systems with pertinent positive or pertinent negative responses have been documented in the HPI. ROS Other: All systems not noted in ROS Statement are negative. Past Medical History Past Medical History: Hyperlipidemia, Hypertension, Pneumonia, Rheumatoid Arthritis (RA), Thyroid Disorder Additional Past Medical History / Comment(s): chronic back pain, arthritis, History of Any Multi-Drug Resistant Organisms: None Reported Past Surgical History: Back Surgery Additional Past Surgical History / Comment(s): VATS procedure many years ago, decompression and fusion L4-5 and L5-S1 with transforaminal lumbar interbody fusion Past Anesthesia/Blood Transfusion Reactions: No Reported Reaction Past Psychological History: Anxiety, Bipolar, Depression Smoking Status: Current every day smoker Past Alcohol Use History: Abuse, Heavy Past Drug Use History: Cocaine, Heroin, Methamphetamine, Opiates, Prescription Drug Abuse - Past Family History Father Additional Family Medical History / Comment(s): at age 85 from metastatic cancer of unknown primary. Brother(s) Additional Family Medical History / Comment(s): Patient states he had 10 brothers and sisters and all have passed from either alcoholism or old age. Daughter(s) Additional Family Medical History / Comment(s): Patient has 4 daughters and 2 sons with no major medical problems. Mother Family Medical History: No Reported History General Exam General appearance: alert, in no apparent distress Head exam: Present: atraumatic, normocephalic Eye exam: Present: normal appearance, PERRL ENT exam: Present: normal exam Neck exam: Present: normal inspection. Absent: tenderness, meningismus Respiratory exam: Present: normal lung sounds bilaterally. Absent: respiratory distress Cardiovascular Exam: Present: regular rate, normal rhythm GI/Abdominal exam: Present: soft. Absent: distended, tenderness, guarding Extremities exam: Present: normal inspection, normal capillary refill. Absent: pedal edema Neurological exam: Present: alert, oriented X3, CN II-XII intact. Absent: motor sensory deficit Psychiatric exam: Present: flat affect Skin exam: Present: warm, dry, intact. Absent: cyanosis, diaphoretic Course Vital Signs 12/12/20 13:48 Temperature 97.3 F L Pulse Rate 77 Respiratory 18 Rate Blood Pressure 150/105 O2 Sat by Pulse 99 Oximetry Medical Decision Making - Medical Decision Making Patient observed in the emergency department. No further need for additional Narcan. He is awake and alert, able to drink some coffee. He is remorseful. Stable for discharge. Disposition Clinical Impression: Heroin abuse, Drug overdose Disposition: HOME SELF-CARE Condition: Fair Instructions (If sedation given, give patient instructions): Adult Overdose (ED) Is patient prescribed a controlled substance at d/c from ED?: No Referrals: None,Stated [Primary Care Provider] - 1-2 days Sujey Bassett MD [REFERRING] - 1-2 days Time of Disposition: 14:34
[2020-12-12 13:54] VITALS: RESP 18; TEMP 97.3
[2020-12-12 15:06] VITALS: BP 129/79; PULSE 78
== END 2020-12-12 15:06 | disposition home or self-care (01) ==
LOC: EC 13:38
DX: T40.1X1A Poisoning by heroin, accidental (unintentional), initial encounter (principal); I10 Essential (primary) hypertension; F17.200 Nicotine dependence, unspecified, uncomplicated
CPT/HCPCS: 99284

== ENCOUNTER 2021-12-28 16:35 | Emergency (ER) | payer MEDICARE, OTHER ==
[2021-12-28 17:27] VITALS: BP 99/61; PULSE 70; RESP 18; TEMP 100.4
[2021-12-28] MEDS ORDERED: ACETAMINOPHEN TAB 325 MG TAB PO STA (20:11)
[2021-12-28] MEDS ORDERED: IBUPROFEN 600 MG TAB PO STA (20:11)
--- NOTE | 2021-12-28 20:51 | XR ---
EXAMINATION TYPE: XR chest 2V DATE OF EXAM: 12/28/2021 COMPARISON: 12/13/2014 HISTORY: Cough TECHNIQUE: Frontal and lateral views of the chest are obtained. FINDINGS: There is no acute air space opacity, pleural effusion, or pneumothorax seen. The cardiac silhouette size is within normal limits. Remote healed right mid rib fractures with chronic mild opac ity. IMPRESSION: No acute cardiopulmonary process.
[2021-12-28 20:52] LABS: Calcium 9.2 mg/dL (8.4-10.2); Potassium 4.5 mmol/L (3.5-5.1)
--- NOTE | 2021-12-28 21:14 | ED ---
Fever HPI - General Chief Complaint: Fever Stated Complaint: fever Time Seen by Provider: 12/28/21 19:59 Source: patient Mode of arrival: wheelchair Limitations: no limitations - History of Present Illness Initial Comments: Patient is a 66-year-old male presenting for evaluation of fever. Patient states he's had fatigue, generalized weakness, body aches as well as cough productive of clear sputum for the last 2 days. His partner currently has Covid. He denies any chest pain or shortness of breath. No abdominal pain, nausea, vomiting, sore throat, dysphagia, sinus pain, ear pressure, headache, vision or hearing changes, neck pain or stiffness, hematochezia, melena, diarrhea, , dysuria, hematuria. - Related Data Home Medications Medication Instructions Recorded Confirmed HYDROcodone/APAP 10-325MG [[place] 1 tab PO TID PRN 04/29/20 04/29/20 10-325] Previous Rx's Medication Instructions Recorded Levothyroxine Sodium [Synthroid] 150 mcg PO DAILY #30 tablet 08/26/18 Simvastatin [Zocor] 40 mg PO DAILY #30 tab 08/26/18 lisinopriL [Zestril] 5 mg PO DAILY #30 tab 08/26/18 Naloxone HCl [Narcan] 4 mg NASAL ONCE PRN #1 unit 04/29/20 Nirmatrelvir/Ritonavir [Paxlovid 1 each PO BID #1 pack 12/28/21 2X150 mg-100 mg (Eua)] Allergies Allergy/AdvReac Type Severity Reaction Status Date / Time No Known Allergies Allergy Verified 12/28/21 17:26 Review of Systems ROS Statement: Those systems with pertinent positive or pertinent negative responses have been documented in the HPI. ROS Other: All systems not noted in ROS Statement are negative. Past Medical History Past Medical History: Hyperlipidemia, Hypertension, Pneumonia, Rheumatoid Arthritis (RA), Thyroid Disorder Additional Past Medical History / Comment(s): chronic back pain, arthritis, History of Any Multi-Drug Resistant Organisms: None Reported Past Surgical History: Back Surgery Additional Past Surgical History / Comment(s): VATS procedure many years ago, decompression and fusion L4-5 and L5-S1 with transforaminal lumbar interbody fusion Past Anesthesia/Blood Transfusion Reactions: No Reported Reaction Past Psychological History: Anxiety, Bipolar, Depression Smoking Status: Current every day smoker Past Alcohol Use History: Abuse, Heavy Past Drug Use History: Cocaine, Heroin, Methamphetamine, Opiates, Prescription Drug Abuse - Past Family History Father Additional Family Medical History / Comment(s): at age 85 from metastatic cancer of unknown primary. Brother(s) Additional Family Medical History / Comment(s): Patient states he had 10 brothers and sisters and all have passed from either alcoholism or old age. Daughter(s) Additional Family Medical History / Comment(s): Patient has 4 daughters and 2 sons with no major medical problems. Mother Family Medical History: No Reported History General Exam Limitations: no limitations General appearance: alert, in no apparent distress Head exam: Present: atraumatic, normocephalic, normal inspection Eye exam: Present: normal appearance, EOMI. Absent: scleral icterus, periorbital swelling Neck exam: Present: normal inspection, full ROM Respiratory exam: Present: normal lung sounds bilaterally. Absent: respiratory distress, wheezes, rales, rhonchi, stridor Cardiovascular Exam: Present: regular rate, normal rhythm, normal heart sounds. Absent: systolic murmur, diastolic murmur, rubs, gallop, clicks Neurological exam: Present: alert, oriented X3, CN II-XII intact Psychiatric exam: Present: normal affect, normal mood Skin exam: Present: warm, dry, intact, normal color. Absent: rash Course Vital Signs 12/28/21 17:23 Temperature 100.4 F H Pulse Rate 70 Respiratory 18 Rate Blood Pressure 99/61 O2 Sat by Pulse 95 Oximetry Medical Decision Making - Medical Decision Making Patient is a 66-year-old male presenting with chief complaint of fever, fatigue, body aches, productive cough. Symptoms have been present for the last 2 days and his partner is currently positive for Covid. Physical exam is unremarkable. Patient is positive for Covid. Chest x-ray shows no acute process. He is given Motrin and Tylenol. BMP is checked for GFR for Paxlovid. Patient is currently taking simvastatin, instructed him to discontinue simvastatin while taking Paxlovid and resume taking 3 days after completion of medication. Discu ssed quarantine guidelines and supportive treatment. Follow-up with PCP. Report back to ER with any new or worsening symptoms. Discussed return parameters and answered all questions. Patient conveyed verbal understanding and agreed to the plan. I discussed this case with my attending Dr. Quach. - Lab Data Result diagrams: 12/28/21 20:31 Lab Results 12/28/21 12/28/21 12/28/21 Range/Units 17:29 17:29 20:31 Sodium 139 (137-145) mmol/L Potassium 4.5 (3.5-5.1) mmol/L Chloride 101 (98-107) mmol/L Carbon Dioxide 26 (22-30) mmol/L Anion Gap 12 mmol/L BUN 21 H (9-20) mg/dL Creatinine 1.11 (0.66-1.25) mg/dL Est GFR (CKD-EPI)AfAm 79 (>60 ml/min/1.73 sqM) Est GFR (CKD-EPI)NonAf 69 (>60 ml/min/1.73 sqM) Glucose 103 H (74-99) mg/dL Calcium 9.2 (8.4-10.2) mg/dL Coronavirus (PCR) Detected A (Not Detectd) Influenza Type A RNA Not Detected (Not Detectd) Influenza Type B (PCR) Not Detected (Not Detectd) Disposition Clinical Impression: COVID Disposition: HOME SELF-CARE Condition: Good Instructions (If sedation given, give patient instructions): COVID-19 (Coronavirus Disease 2019) (ED), How to Recover from COVID-19 at Home (ED) Additional Instructions: Quarantine at home for 5 days, this was followed by 5 days of strict mask usage while in public. If after initial 5 days you still have fever or any other symptoms, he must continue your quarantine until you are fever and symptom free for 24 hours. Take Motrin and Tylenol as needed for fever and pain control. Take medication as prescribed. Do not take simvastatin with Paxlovid, you can start taking simvastatin again 3 days after finishing Paxlovid. Report back to ER with any new or worsening symptoms. Follow-up with your PCP. Prescriptions: Nirmatrelvir/Ritonavir [Paxlovid 2X150 mg-100 mg (Eua)] 1 each PO BID #1 pack Is patient prescribed a controlled substance at d/c from ED?: No Referrals: None,Stated [Primary Care Provider] - 1-2 days Time of Disposition: 21:14
== END 2021-12-28 21:24 | disposition home or self-care (01) ==
LOC: EC 16:35
DX: U07.1 COVID-19 (principal); E78.5 Hyperlipidemia, unspecified; I10 Essential (primary) hypertension; F17.209 Nicotine dependence, unspecified, with unspecified nicotine-induced disorders
CPT/HCPCS: 36415; 71046; 80048; 87502; 87635; 93005; 99284

== ENCOUNTER → 2022-10-24 | Outpatient (CLI) | payer MEDICARE, OTHER ==
[2022-10-24 23:26] LABS: Microalbumin Creatinine Ratio <7 mg/g Cr (0-30)
[2022-10-25 02:13] LABS: Basophils # (A) 0.05 X 10*3/uL (0.00-0.10); Eosinophils # (A) 0.08 X 10*3/uL (0.04-0.35); Eosinophils % (A) 1.5 %; HCT 38.5 % (39.6-50.0); HGB 12.2 d/dL (12.0-15.0); Lymphocytes # (A) 2.23 X 10*3/uL (0.90-5.00); Lymphocytes % (A) 42.7 %; MCH 32.4 pg (27.0-32.0); MCHC 31.7 d/dL (32.0-37.0); MCV 102.1 FL (80.0-97.0); Monocytes # (A) 0.54 X 10*3/uL (0.20-1.00); Monocytes % (A) 10.3 %; NRBC Per 100 WBC 0 X 10*3/uL (0.00-0.01); Neutrophils # (A) 2.31 X 10*3/uL (1.80-7.70); Neutrophils % (A) 44.3 %; Platelet Count 205 X 10*3/uL (140-440); RBC 3.77 X 10*6/uL (4.40-5.60); RDW 13.9 % (11.5-14.5); WBC 5.22 X 10*3/uL (4.50-10.00)
[2022-10-25 02:21] LABS: ALT 64 U/L (10-49); AST 45 U/L (14-35); Albumin/Globulin Ratio 1.18 Ratio (1.60-3.17); Alkaline Phosphatase 75 U/L (41-126); Blood Urea Nitrogen 20.7 mg/dL (9.0-27.0); Calcium 9.4 mg/dL (8.7-10.3); Carbon Dioxide 24.5 mmol/L (21.6-31.8); Chloride 105 mmol/L (96-109); Chol/HDL Ratio 3.81 Ratio; Globulin 3.4 d/dL (1.6-3.3); Glucose 120 mg/dL (70-110); LDL Cholesterol,Calculated 89.1 mg/dL (0.0-131.0); Potassium 4.7 mmol/L (3.5-5.5); Sodium 139 mmol/L (135-145); T4, Free (Free Thyroxine) 0.59 ng/dL (0.80-1.80); Total Bilirubin 0.3 mg/dL (0.3-1.2); Total Protein 7.4 d/dL (6.2-8.2)
== END | disposition home or self-care (01) ==
LOC: LABWHC1 14:19
PROVIDERS: ATTEND Nurse Practitioner
DX: Z51.81 Encounter for therapeutic drug level monitoring (principal); E78.5 Hyperlipidemia, unspecified; I10 Essential (primary) hypertension; Z79.899 Other long term (current) drug therapy
CPT/HCPCS: 36415; 80053; 80061; 82043; 82306; 82570; 83036; 84439; 84443; 85025

== ENCOUNTER 2022-12-04 13:29 | Emergency (ER) | payer MEDICARE, OTHER ==
[2022-12-04 14:01] VITALS: RESP 16; TEMP 97.9
--- NOTE | 2022-12-04 15:39 | ED ---
General Adult HPI - General Chief complaint: Skin/Abscess/Foreign Body Stated complaint: R Ankle Bug Bite Time Seen by Provider: 12/04/22 14:03 Source: patient Mode of arrival: ambulatory Limitations: no limitations - History of Present Illness Initial comments: Present to ED with a chief complaint of bug bite. Patient states that he was bit by a bug on his right ankle yesterday. Since then has developed warmth and swelling and pain over the bite. States that he has been scratching at it frequently. Denies fever. No other complaints. - Related Data Home Medications Medication Instructions Recorded Confirmed HYDROcodone/APAP 10-325MG [[place] 1 tab PO TID PRN 04/29/20 04/29/20 10-325] Previous Rx's Medication Instructions Recorded Levothyroxine Sodium [Synthroid] 150 mcg PO DAILY #30 tablet 08/26/18 Simvastatin [Zocor] 40 mg PO DAILY #30 tab 08/26/18 lisinopriL [Zestril] 5 mg PO DAILY #30 tab 08/26/18 Naloxone HCl [Narcan] 4 mg NASAL ONCE PRN #1 unit 04/29/20 Nirmatrelvir/Ritonavir [Paxlovid 1 each PO BID #1 pack 12/28/21 2X150 mg-100 mg (Eua)] Cephalexin [Keflex] 500 mg PO Q6HR 5 Days #20 cap 12/04/22 Hydrocortisone Oint 1 applic TOPICAL BID #28 gm 12/04/22 [Hydrocortisone 2.5% Oint] Allergies Allergy/AdvReac Type Severity Reaction Status Date / Time No Known Allergies Allergy Verified 12/04/22 14:01 Review of Systems ROS Statement: Those systems with pertinent positive or pertinent negative responses have been documented in the HPI. ROS Other: All systems not noted in ROS Statement are negative. Past Medical History Past Medical History: Hyperlipidemia, Hypertension, Pneumonia, Rheumatoid Arthritis (RA), Thyroid Disorder Additional Past Medical History / Comment(s): chronic back pain, arthritis, History of Any Multi-Drug Resistant Organisms: None Reported Past Surgical History: Back Surgery Additional Past Surgical History / Comment(s): VATS procedure many years ago, decompression and fusion L4-5 and L5-S1 with transforaminal lumbar interbody fusion Past Anesthesia/Blood Transfusion Reactions: No Reported Reaction Past Psychological History: Anxiety, Bipolar, Depression Smoking Status: Current every day smoker Past Alcohol Use History: Abuse, Heavy Past Drug Use History: Cocaine, Heroin, Methamphetamine, Opiates, Prescription Drug Abuse - Past Family History Father Additional Family Medical History / Comment(s): at age 85 from metastatic cancer of unknown primary. Brother(s) Additional Family Medical History / Comment(s): Patient states he had 10 brothers and sisters and all have passed from either alcoholism or old age. Daughter(s) Additional Family Medical History / Comment(s): Patient has 4 daughters and 2 sons with no major medical problems. Mother Family Medical History: No Reported History General Exam Limitations: no limitations General appearance: alert, in no apparent distress Eye exam: Present: normal appearance Neck exam: Present: normal inspection Respiratory exam: Present: normal lung sounds bilaterally Cardiovascular Exam: Present: regular rate, normal rhythm GI/Abdominal exam: Present: soft Extremities exam: Present: other (Approximately 1 cm area of excoriation on the right lateral malleolus with surrounding warmth erythema. Minimal tenderness palpation. Good strength and sensation of the foot.) Neurological exam: Present: alert, oriented X3 Skin exam: Present: warm, dry Course Vital Signs 12/04/22 13:59 Temperature 97.9 F Pulse Rate 66 Respiratory 16 Rate Blood Pressure 172/83 O2 Sat by Pulse 99 Oximetry Medical Decision Making - Medical Decision Making Was pt. sent in by a medical professional or institution ([facility], CLINICAL NEUROPSYCHOLOGIST, urgent care, hospital, or retirement...) When possible be specific @ -No Did you speak to anyone other than the patient for history (EMS, parent, family, police, friend...)? What history was obtained from this source @ -No Did you review nursing and triage notes (agree or disagree)? Why? @ -I reviewed and agree with nursing and triage notes Were old charts reviewed (outside hosp., previous admission, EMS record, old EKG, old radiological studies, urgent care reports/EKG's, retirement records)? Report findings @ -No old charts were reviewed Differential Diagnosis (chest pain, altered mental status, abdominal pain women, abdominal pain men, vaginal bleeding, weakness, fever, dyspnea, syncope, headache, dizziness, GI bleed, back pain, seizure, CVA, palpatations, mental health, musculoskeletal)? @ -Differential Musculoskeletal Muscular strain, contusion, ligament sprain, fracture, arthritis, septic arthritis, bursitis, cellulitis, muscle spasm, nerve compression, DVT, arterial occlusion, herpes zoster, electrolyte abnormality, tumor.... This is not meant to be in all inclusive list EKG interpreted by me (3pts min.). @ -None X-rays interpreted by me (1pt min.). @ -None done CT interpreted by me (1pt min.). @ -None done U/S interpreted by me (1pt. min.). @ -None done What testing was considered but not performed or refused? (CT, X-rays, U/S, labs)? Why? @ -None What meds were considered but not given or refused? Why? @ -None Did you discuss the management of the patient with other professionals (professionals i.e. , PA, CLINICAL NEUROPSYCHOLOGIST, lab, RT, psych nurse, child protective services social worker, heavy truck driver, teacher, booking police officer, comp field case manager)? Give summary @ -No Was smoking cessation discussed for >3mins.? @ -No Was critical care preformed (if so, how long)? @ -No Were there social determinants of health that impacted care today? How? (Homelessness, low income, unemployed, alcoholism, drug addiction, transportation, low edu. Level, literacy, decrease access to med. care, alf, rehab)? @ -No Was there de-escalation of care discussed even if they declined (Discuss DNR or withdrawal of care, Hospice)? DNR status @ -No What co-morbidities impacted this encounter? (DM, HTN, Smoking, COPD, CAD, Cancer, CVA, ARF, Chemo, Hep., AIDS, mental health diagnosis, sleep apnea, morbid obesity)? @ -None Was patient admitted / discharged? Hospital course, mention meds given and route, prescriptions, significant lab abnormalities, going to OR and other pertinent info. @ -Discharge. Patient will be covered for early cellulitis with antibiotics. However at this time, vital signs stable, afebrile. Provided prescription for hydrocortisone cream. Strongly advised to stop itching. Discussed return precautions with patient who verbalizes agreement. Undiagnosed new problem with uncertain prognosis? @ -No Drug Therapy requiring intensive monitoring for toxicity (Heparin, Nitro, Insulin, Cardizem)? @ -No Were any procedures done? @ -No Diagnosis/symptom? @ -Bug Bite, early cellulitis Acute, or Chronic, or Acute on Chronic? @ -Acute Uncomplicated (without systemic symptoms) or Complicated (systemic symptoms)? @ -Uncomplicated Side effects of treatment? @ -No Exacerbation, Progression, or Severe Exacerbation? @ -No Poses a threat to life or bodily function? How? (Chest pain, [place], AR, pneumonia, PE, COPD, DKA, ARF, appy, cholecystitis, CVA, Diverticulitis, Homicidal, Suicidal, threat to staff... and all critical care pts) @ -No Disposition Clinical Impression: Cellulitis, Bug bite Disposition: HOME SELF-CARE Condition: Good Instructions (If sedation given, give patient instructions): Cellulitis (ED), Insect Bite or Sting (ED) Prescriptions: Hydrocortisone Oint [Hydrocortisone 2.5% Oint] 1 applic TOPICAL BID #28 gm Cephalexin [Keflex] 500 mg PO Q6HR 5 Days #20 cap Is patient prescribed a controlled substance at d/c from ED?: No Referrals: Shant Montano [Primary Care Provider] - 1-2 days Time of Disposition: 15:41
[2022-12-04 16:04] VITALS: BP 137/90; PULSE 50
== END 2022-12-04 16:01 | disposition home or self-care (01) ==
LOC: EC 13:29
DX: L03.115 Cellulitis of right lower limb (principal); I10 Essential (primary) hypertension; F17.200 Nicotine dependence, unspecified, uncomplicated; Z79.899 Other long term (current) drug therapy; W57.XXXA Bitten or stung by nonvenomous insect and other nonvenomous arthropods, initial encounter
CPT/HCPCS: 99283

== ENCOUNTER 2023-03-16 12:08 | Emergency (ER) | payer MEDICARE, OTHER ==
[2023-03-16] MEDS ORDERED: ACETAMINOPHEN TAB 500 MG TAB PO STA (12:49)
[2023-03-16] MEDS ORDERED: HYDROmorphone 1 MG/ML 1 ML SYRINGE IM STA (12:49)
[2023-03-16] MEDS ORDERED: LIDOCAINE 5% PATCH TOPICAL STA (12:49)
--- NOTE | 2023-03-16 13:28 | ED ---
Back Pain HPI - General Chief Complaint: Back Pain/Injury Stated Complaint: back pain Time Seen by Provider: 03/16/23 12:30 Source: patient, RN notes reviewed, old records reviewed Limitations: no limitations - History of Present Illness Initial Comments: This is a 59-year-old male to the emergency department for evaluation today. Patient presents today for evaluation regards to back pain of significance. Patient states he has history of chronic back pain with back surgery, no recent trauma, most recent fall or injury was over a year ago which did present him to the emergency department. He states the pain has been getting increasingly worse MD Complaint: back pain, back injury, other (No recent traumatic injury) -: days(s) Similar Symptoms Previously: Yes Place: home, work Radiation: none Severity: severe Severity scale (1-10): 10 Quality: sharp Consistency: constant Improves With: none Worsens With: none Context: while lifting, turning/twisting Associated Symptoms: denies other symptoms Treatments Prior to Arrival: other (0) - Related Data Home Medications Medication Instructions Recorded Confirmed HYDROcodone/APAP 10-325MG [[place] 1 tab PO TID PRN 04/29/20 04/29/20 10-325] Previous Rx's Medication Instructions Recorded Levothyroxine Sodium [Synthroid] 150 mcg PO DAILY #30 tablet 08/26/18 Simvastatin [Zocor] 40 mg PO DAILY #30 tab 08/26/18 lisinopriL [Zestril] 5 mg PO DAILY #30 tab 08/26/18 Naloxone HCl [Narcan] 4 mg NASAL ONCE PRN #1 unit 04/29/20 Nirmatrelvir/Ritonavir [Paxlovid 1 each PO BID #1 pack 12/28/21 2X150 mg-100 mg (Eua)] Cephalexin [Keflex] 500 mg PO Q6HR 5 Days #20 cap 12/04/22 Hydrocortisone Oint 1 applic TOPICAL BID #28 gm 12/04/22 [Hydrocortisone 2.5% Oint] Allergies Allergy/AdvReac Type Severity Reaction Status Date / Time No Known Allergies Allergy Verified 03/16/23 12:25 Review of Systems ROS Statement: Those systems with pertinent positive or pertinent negative responses have been documented in the HPI. ROS Other: All systems not noted in ROS Statement are negative. Past Medical History Past Medical History: Hyperlipidemia, Hypertension, Pneumonia, Rheumatoid Arthritis (RA), Thyroid Disorder Additional Past Medical History / Comment(s): chronic back pain, arthritis, History of Any Multi-Drug Resistant Organisms: None Reported Past Surgical History: Back Surgery Additional Past Surgical History / Comment(s): VATS procedure many years ago, decompression and fusion L4-5 and L5-S1 with transforaminal lumbar interbody fusion Past Anesthesia/Blood Transfusion Reactions: No Reported Reaction Past Psychological History: Anxiety, Bipolar, Depression Smoking Status: Current every day smoker Past Alcohol Use History: Abuse, Heavy Past Drug Use History: Cocaine, Heroin, Methamphetamine, Opiates, Prescription Drug Abuse - Past Family History Father Additional Family Medical History / Comment(s): at age 85 from metastatic cancer of unknown primary. Brother(s) Additional Family Medical History / Comment(s): Patient states he had 10 brothers and sisters and all have passed from either alcoholism or old age. Daughter(s) Additional Family Medical History / Comment(s): Patient has 4 daughters and 2 sons with no major medical problems. Mother Family Medical History: No Reported History General Exam Limitations: no limitations General appearance: alert, in no apparent distress Head exam: Present: atraumatic, normocephalic, normal inspection Eye exam: Present: normal appearance, PERRL, EOMI. Absent: scleral icterus, conjunctival injection, periorbital swelling ENT exam: Present: normal exam, mucous membranes moist Neck exam: Present: normal inspection. Absent: tenderness, meningismus, lymphadenopathy Respiratory exam: Present: normal lung sounds bilaterally. Absent: respiratory distress, wheezes, rales, rhonchi, stridor Cardiovascular Exam: Present: regular rate, normal rhythm, normal heart sounds. Absent: systolic murmur, diastolic murmur, rubs, gallop, clicks GI/Abdominal exam: Present: soft, normal bowel sounds. Absent: distended, tenderness, guarding, rebound, rigid Extremities exam: Present: normal inspection, full ROM, normal capillary refill. Absent: tenderness, pedal edema, joint swelling, calf tenderness Back exam: Present: normal inspection Neurological exam: Present: alert, oriented X3, CN II-XII intact Psychiatric exam: Present: normal affect, normal mood Skin exam: Present: warm, dry, intact, normal color. Absent: rash Course Vital Signs 03/16/23 03/16/23 12:21 14:54 Temperature 97.7 F 98.2 F Pulse Rate 84 80 Respiratory 17 18 Rate Blood Pressure 138/85 132/78 O2 Sat by Pulse 98 99 Oximetry - Reevaluation(s) Reevaluation #1: 03/16/23 14:16 Medical records reviewed Reevaluation #2: 03/16/23 14:16 Patient's pain is controlled, patient is able ambulate Reevaluation #3: 03/16/23 14:17 Patient informed of results and questions answered Reevaluation #4: 03/16/23 13:28 Was pt. sent in by a medical professional or institution (, FAY, EXTENDED DAY TEACHER, urgent care, hospital, or half-way...) When possible be specific @ -no Did you speak to anyone other than the patient for history (EMS, parent, family, police, friend...)? What history was obtained from this source @ -no Did you review nursing and triage notes (agree or disagree)? Why? @ -agree Are old charts reviewed (outside hosp., previous admission, EMS record, old EKG, old radiological studies, urgent care reports/EKG's, half-way records)? Report findings @ -yes Differential Diagnosis (chest pain, altered mental status, abdominal pain women, abdominal pain men, vaginal bleeding, weakness, fever, dyspnea, syncope, headache, dizziness, GI bleed, back pain, seizure, CVA, palpatations, mental health, musculoskeletal)? @ -prior EKG interpreted by me (3pts min.). @ -no X-rays interpreted by me (1pt min.). @ -no CT interpreted by me (1pt min.). @ -yes U/S interpreted by me (1pt. min.). @ -no What testing was considered but not performed or refused? (CT, X-rays, U/S, labs)? Why? @ -none What meds were considered but not given or refused? Why? @ -none Did you discuss the management of the patient with other professionals (professionals i.e. FAY Bergman, EXTENDED DAY TEACHER, lab, RT, psych nurse, nephrology social worker, insulation extruder operator, teacher, youth officer, child support case officer)? Give summary @ -no Was smoking cessation discussed for >3mins.? @ -no Was critical care preformed (if so, how long)? @ -no Were there social determinants of health that impacted care today? How? (Homelessness, low income, unemployed, alcoholism, drug addiction, transportation, low edu. Level, literacy, decrease access to med. care, alf, rehab)? @ -none Was there de-escalation of care discussed even if they declined (Discuss DNR or withdrawal of care, Hospice)? DNR status @ -no What co-morbidities impacted this encounter? (DM, HTN, Smoking, COPD, CAD, Cancer, CVA, ARF, Chemo, Hep., AIDS, mental health diagnosis, sleep apnea, morbid obesity)? @ -none Was patient admitted / discharged? Hospital course, mention meds given and route, prescriptions, significant lab abnormalities, going to OR and other pertinent info. @ - 67 male to the emergency room today for evaluation of acute on chronic back pain. Back pain well-controlled computed tomography scan is negative patient can be discharged home Discharge Undiagnosed new problem with uncertain prognosis? @ -no Drug Therapy requiring intensive monitoring for toxicity (Heparin, Nitro, Insulin, Cardizem)? @ -no Were any procedures done? @ -no Diagnosis/symptom? @ -Acute on chronic back pain Acute, or Chronic, or Acute on Chronic? @ -Acute Uncomplicated (without systemic symptoms) or Complicated (systemic symptoms)? @ -Complicated Side effects of treatment? @ -no Exacerbation, Progression, or Severe Exacerbation? @ -exacerbation Poses a threat to life or bodily function? How? (Chest pain, USA, PR, pneumonia, PE, COPD, DKA, ARF, appy, cholecystitis, CVA, Diverticulitis, Homicidal, Suicidal, threat to staff... and all critical care pts) @ -yes Reevaluation #5: 03/16/23 13:28 Differential Back Pain: Strain, zoster, cauda equina syndrome, epidural abscess, vertebral osteomyelitis, discitis, fracture, subluxation, disc herniation, DJD, spinal stenosis, dissection, AAA, pancreatitis, peptic ulcer disease, pyelonephritis, kidney stone, this is not meant to be an all-inclusive list. Medical Decision Making - Medical Decision Making 67 male to the emergency room today for evaluation of acute on chronic back pain. Back pain well-controlled computed tomography scan is negative patient can be discharged home - Radiology Data Radiology results: report reviewed (CT lumbar spine is negative for acute traumatic injury), image reviewed Disposition Clinical Impression: Mechanical back pain, Strain of lumbar region, Sciatica, Lumbar radiculopathy, Status post lumbar spinal fusion Disposition: HOME SELF-CARE Condition: Fair Instructions (If sedation given, give patient instructions): Acute Low Back Pain (ED) Is patient prescribed a controlled substance at d/c from ED?: No Referrals: Nonstaff,Physician [Primary Care Provider] - 1-2 days Time of Disposition: 14:30
--- NOTE | 2023-03-16 14:18 | CT ---
EXAMINATION TYPE: CT lumbar spine wo con DATE OF EXAM: 03/16/2023 COMPARISON: CT abdomen pelvis 01/21/2020 HISTORY: 67-year-old male with back Pain TECHNIQUE: Contiguous axial scanning of the lumbar spine without IV contrast. Coronal and sagittal re constructions performed. CT DLP: 926.3 mGycm Automated exposure control for dose reduction was used. FINDINGS: There is postsurgical change of L4-S1 posterior and interbody lumbar fusion. Graft as compared to 12/29, progression to now severe disc/endplate degenerative change above the fusion at both L2-L3 an d L3-L4. Bulging disc osteophyte complex likely contributes to moderate to severe focal spinal canal stenoses at both levels. Straightening of the normal cervical lordosis. Additional multilevel facet arthropathy. On the left, changes result in moderate neuroforaminal stenosis and L3-L4 above the fusion and mild a t L2-L3. On the right, changes result in moderate neural foraminal stenosis at L2-L3. Fusiform aneurysm infrarenal abdominal aorta up to 3.0 cm. Moderate stool in the right side of the ab domen. IMPRESSION: 1. STATUS POST PREVIOUS L4-S1 POSTERIOR AND INTERBODY FUSION. 2. COMPARED TO 2019, THERE HAS BEEN PROGRESSION TO NOW SEVERE DISC/ENDPLATE DEGENERATIVE CHANGE AT BOTH L2-L3 AND L3-L4 ABOVE THE FUSION. 3. CHANGES RESULT IN OVERALL MODERATE TO SEVERE FOCAL SPINAL CANAL STENOSIS AT BOTH L2-L3 AND L3-L4 S ECONDARY TO COMBINATION OF DISC BULGE AND DISC OSTEOPHYTE COMPLEX. 4. MODERATE NEUROFORAMINAL STENOSIS ON THE LEFT AT L3-L4 AND ON THE RIGHT AT L2-L3. 5. NO VERTEBRAL COMPRESSION COLLAPSE OR MALALIGNMENT.
[2023-03-16] MEDS ORDERED: IBUPROFEN 600 MG STARTER PACK 4 TAB BTL PO STA (14:23)
[2023-03-16] MEDS ORDERED: ONDANSETRON 4 MG ODT STARTER PACK 2 TAB BTL PO STA (14:23)
[2023-03-16] MEDS ORDERED: ACET/COD 300 MG/30 MG STARTER PACK 6 TAB BTL PO STA (14:23)
[2023-03-16 14:56] VITALS: BP 132/78; PULSE 80; RESP 18; TEMP 98.2
== END 2023-03-16 14:55 | disposition home or self-care (01) ==
LOC: EC 12:08
DX: S39.012A Strain of muscle, fascia and tendon of lower back, initial encounter (principal); M54.16 Radiculopathy, lumbar region; M54.40 Lumbago with sciatica, unspecified side; I10 Essential (primary) hypertension; F17.200 Nicotine dependence, unspecified, uncomplicated; F12.90 Cannabis use, unspecified, uncomplicated; F14.90 Cocaine use, unspecified, uncomplicated; F11.90 Opioid use, unspecified, uncomplicated; F15.90 Other stimulant use, unspecified, uncomplicated; Z98.1 Arthrodesis status; X50.0XXA Overexertion from strenuous movement or load, initial encounter; X50.1XXA Overexertion from prolonged static or awkward postures, initial encounter
CPT/HCPCS: 72131; 99284; 96372; J1170; S0119

== ENCOUNTER 2023-04-02 23:41 | Emergency (ER) | payer MEDICARE, OTHER ==
[2023-04-02] MEDS ORDERED: FLUORESCEIN STRIPS 1 MG STRIP LEFT EYE ONE (23:59)
[2023-04-03 00:09] VITALS: BP 134/93; PULSE 69; RESP 18; TEMP 97.7
[2023-04-03] MEDS ORDERED: POLYMYXIN B-TRIMETHOPRIM SULF (10,000-1) OPHTH DROPS 10 ML BTL LEFT EYE STA (00:13)
--- NOTE | 2023-04-03 00:25 | ED ---
Eye Problem HPI - General Chief complaint: Eye Problems Stated complaint: Eye problem Time Seen by Provider: 04/02/23 23:44 Source: EMS, RN notes reviewed, old records reviewed Mode of arrival: EMS Limitations: no limitations - History of Present Illness Initial comments: This is a 67-year-old male to the emergency department for evaluation today. Patient Dese for evaluation regards to severe eye pain severe left-sided pain believes he may be on something in his eye feels like he has something of that I with significant pain and discomfort. Patient symptoms has progressively worse with significant swelling of the left eye secondary to rubbing the eye. chief complaint: eye pain -: hour(s) Onset Description: sudden Location: left eye Place: home If Injury: none Eye Symptoms: burning, redness, pain Severity: severe Severity scale (1-10): 6 If Pain, Quality: sharp Consistency: constant Context: recent uri Associated Symptoms: none Treatments Prior to Arrival: none - Related Data Patient Tetanus UTD: No Home Medications Medication Instructions Recorded Confirmed HYDROcodone/APAP 10-325MG [[place] 1 tab PO TID PRN 04/29/20 04/29/20 10-325] Previous Rx's Medication Instructions Recorded Levothyroxine Sodium [Synthroid] 150 mcg PO DAILY #30 tablet 08/26/18 Simvastatin [Zocor] 40 mg PO DAILY #30 tab 08/26/18 lisinopriL [Zestril] 5 mg PO DAILY #30 tab 08/26/18 Naloxone HCl [Narcan] 4 mg NASAL ONCE PRN #1 unit 04/29/20 Nirmatrelvir/Ritonavir [Paxlovid 1 each PO BID #1 pack 12/28/21 2X150 mg-100 mg (Eua)] Cephalexin [Keflex] 500 mg PO Q6HR 5 Days #20 cap 12/04/22 Hydrocortisone Oint 1 applic TOPICAL BID #28 gm 12/04/22 [Hydrocortisone 2.5% Oint] Allergies Allergy/AdvReac Type Severity Reaction Status Date / Time No Known Allergies Allergy Verified 03/16/23 12:25 Review of Systems ROS Statement: Those systems with pertinent positive or pertinent negative responses have been documented in the HPI. ROS Other: All systems not noted in ROS Statement are negative. Past Medical History Past Medical History: Hyperlipidemia, Hypertension, Pneumonia, Rheumatoid Arthritis (RA), Thyroid Disorder Additional Past Medical History / Comment(s): chronic back pain, arthritis, History of Any Multi-Drug Resistant Organisms: None Reported Past Surgical History: Back Surgery Additional Past Surgical History / Comment(s): VATS procedure many years ago, decompression and fusion L4-5 and L5-S1 with transforaminal lumbar interbody fusion Past Anesthesia/Blood Transfusion Reactions: No Reported Reaction Past Psychological History: Anxiety, Bipolar, Depression Smoking Status: Current every day smoker Past Alcohol Use History: Abuse, Heavy Past Drug Use History: Cocaine, Heroin, Methamphetamine, Opiates, Prescription Drug Abuse - Past Family History Father Additional Family Medical History / Comment(s): at age 85 from metastatic cancer of unknown primary. Brother(s) Additional Family Medical History / Comment(s): Patient states he had 10 brothers and sisters and all have passed from either alcoholism or old age. Daughter(s) Additional Family Medical History / Comment(s): Patient has 4 daughters and 2 sons with no major medical problems. Mother Family Medical History: No Reported History General Exam - General Exam Comments Initial Comments: Fluorescein exam Spencer lap exam Corneal abrasion 6:00 Limitations: no limitations General appearance: alert, in no apparent distress Head exam: Present: atraumatic, normocephalic, normal inspection Eye exam: Present: PERRL, EOMI, conjunctival injection. Absent: scleral icterus, periorbital swelling ENT exam: Present: normal exam, mucous membranes moist Neck exam: Present: normal inspection. Absent: tenderness, meningismus, lymphadenopathy Respiratory exam: Present: normal lung sounds bilaterally. Absent: respiratory distress, wheezes, rales, rhonchi, stridor Cardiovascular Exam: Present: regular rate, normal rhythm, normal heart sounds. Absent: systolic murmur, diastolic murmur, rubs, gallop, clicks GI/Abdominal exam: Present: soft, normal bowel sounds. Absent: distended, tenderness, guarding, rebound, rigid Extremities exam: Present: normal inspection, full ROM, normal capillary refill. Absent: tenderness, pedal edema, joint swelling, calf tenderness Back exam: Present: normal inspection Neurological exam: Present: alert, oriented X3, CN II-XII intact Psychiatric exam: Present: normal affect, normal mood Skin exam: Present: warm, dry, intact, normal color. Absent: rash Course Vital Signs 12/05/23 23:45 Temperature 97.7 F Pulse Rate 69 Respiratory 18 Rate Blood Pressure 134/93 O2 Sat by Pulse 96 Oximetry - Reevaluation(s) Reevaluation #1: 04/03/23 00:22 Medical record is reviewed Reevaluation #2: 04/03/23 00:23 Patient symptoms dramatically improved, no vision loss or changes Reevaluation #3: 04/03/23 00:23 Patient informed of results and questions answered Reevaluation #4: 04/03/23 00:23 Was pt. sent in by a medical professional or institution (FAY Bergman, PRACTICE COORDINATOR, urgent care, hospital, or intermediate...) When possible be specific @ -no Did you speak to anyone other than the patient for history (EMS, parent, family, police, friend...)? What history was obtained from this source @ -no Did you review nursing and triage notes (agree or disagree)? Why? @ -agree Are old charts reviewed (outside hosp., previous admission, EMS record, old EKG, old radiological studies, urgent care reports/EKG's, intermediate records)? Report findings @ -yes Differential Diagnosis (chest pain, altered mental status, abdominal pain women, abdominal pain men, vaginal bleeding, weakness, fever, dyspnea, syncope, headache, dizziness, GI bleed, back pain, seizure, CVA, palpatations, mental health, musculoskeletal)? @ -prior EKG interpreted by me (3pts min.). @ -no X-rays interpreted by me (1pt min.). @ -no CT interpreted by me (1pt min.). @ -no U/S interpreted by me (1pt. min.). @ -no What testing was considered but not performed or refused? (CT, X-rays, U/S, labs)? Why? @ -none What meds were considered but not given or refused? Why? @ -none Did you discuss the management of the patient with other professionals (professionals i.e. FAY Bergman, PRACTICE COORDINATOR, lab, RT, psych nurse, high school social studies teacher, business systems manager, teacher, security officers and guards, case aide)? Give summary @ -no Was smoking cessation discussed for >3mins.? @ -no Was critical care preformed (if so, how long)? @ -no Were there social determinants of health that impacted care today? How? (Homelessness, low income, unemployed, alcoholism, drug addiction, transportation, low edu. Level, literacy, decrease access to med. care, usp, rehab)? @ -none Was there de-escalation of care discussed even if they declined (Discuss DNR or withdrawal of care, Hospice)? DNR status @ -no What co-morbidities impacted this encounter? (DM, HTN, Smoking, COPD, CAD, Cancer, CVA, ARF, Chemo, Hep., AIDS, mental health diagnosis, sleep apnea, morbid obesity)? @ -none Was patient admitted / discharged? Hospital course, mention meds given and route, prescriptions, significant lab abnormalities, going to OR and other pertinent info. @ - 67 male to the emergency department for evaluation of severe left eye pain. Patient does have left corneal abrasion which will be given antibiotics for and patient can be discharged home Discharge Undiagnosed new problem with uncertain prognosis? @ -no Drug Therapy requiring intensive monitoring for toxicity (Heparin, Nitro, Insulin, Cardizem)? @ -no Were any procedures done? @ -no Diagnosis/symptom? @ -Left eye corneal abrasion Acute, or Chronic, or Acute on Chronic? @ -Acute Uncomplicated (without systemic symptoms) or Complicated (systemic symptoms)? @ -Complicated Side effects of treatment? @ -no Exacerbation, Progression, or Severe Exacerbation? @ -exacerbation Poses a threat to life or bodily function? How? (Chest pain, USA, OR, pneumonia, PE, COPD, DKA, ARF, appy, cholecystitis, CVA, Diverticulitis, Homicidal, Suicidal, threat to staff... and all critical care pts) @ -no Medical Decision Making - Medical Decision Making 67 male to the emergency department for evaluation of severe left eye pain. Patient does have left corneal abrasion which will be given antibiotics for and patient can be discharged home Disposition Clinical Impression: Left corneal abrasion, Conjunctivitis, left eye Disposition: HOME SELF-CARE Condition: Good Instructions (If sedation given, give patient instructions): Corneal Abrasion (ED) Is patient prescribed a controlled substance at d/c from ED?: No Referrals: Glo Culp MD [STAFF PHYSICIAN] - 1-2 days Time of Disposition: 00:30
== END 2023-04-03 00:26 | disposition home or self-care (01) ==
LOC: EC 23:41
DX: S05.02XA Injury of conjunctiva and corneal abrasion without foreign body, left eye, initial encounter (principal); I10 Essential (primary) hypertension; F17.200 Nicotine dependence, unspecified, uncomplicated; Z86.59 Personal history of other mental and behavioral disorders; X58.XXXA Exposure to other specified factors, initial encounter
CPT/HCPCS: 99283

== ENCOUNTER 2023-05-11 16:41 | Emergency (ER) | payer MEDICARE, OTHER ==
[2023-05-11 17:11] VITALS: TEMP 99.1
[2023-05-11] MEDS ORDERED: lisinopriL 5 MG TAB PO STA (18:49)
[2023-05-11] MEDS ORDERED: LEVOTHYROXINE 100 MCG TAB PO STA (19:04)
[2023-05-11] MEDS ORDERED: IBUPROFEN 800 MG TAB PO STA (19:04)
--- NOTE | 2023-05-11 19:04 | ED ---
General Adult HPI - General Chief complaint: Recheck/Abnormal Lab/Rx Stated complaint: script refill Time Seen by Provider: 05/11/23 18:28 Source: patient, RN notes reviewed Mode of arrival: ambulatory Limitations: no limitations - History of Present Illness Initial comments: 67-year-old male presents to the emergency department for medication management. Patient states that today he was locked out of his house by his landlord with his medications still there. He states that he has been unable to get his medications today. He reports taking lisinopril, simvastatin, levothyroxine, ibuprofen. He reports that he is currently staying in the [facility]. He denies any physical complaints at this time. - Related Data Home Medications Medication Instructions Recorded Confirmed HYDROcodone/APAP 10-325MG [[place] 1 tab PO TID PRN 04/29/20 04/29/20 10-325] Previous Rx's Medication Instructions Recorded Levothyroxine Sodium [Synthroid] 150 mcg PO DAILY #30 tablet 08/26/18 Simvastatin [Zocor] 40 mg PO DAILY #30 tab 08/26/18 lisinopriL [Zestril] 5 mg PO DAILY #30 tab 08/26/18 Naloxone HCl [Narcan] 4 mg NASAL ONCE PRN #1 unit 04/29/20 Nirmatrelvir/Ritonavir [Paxlovid 1 each PO BID #1 pack 12/28/21 2X150 mg-100 mg (Eua)] Cephalexin [Keflex] 500 mg PO Q6HR 5 Days #20 cap 12/04/22 Hydrocortisone Oint 1 applic TOPICAL BID #28 gm 12/04/22 [Hydrocortisone 2.5% Oint] Ibuprofen 800 mg PO Q8H #30 tab 05/11/23 Levothyroxine Sodium 200 mcg PO AC-BRKFST #14 tablet 05/11/23 Simvastatin 40 mg PO DAILY #14 tablet 05/11/23 lisinopriL [Zestril] 5 mg PO DAILY #14 tab 05/11/23 Allergies Allergy/AdvReac Type Severity Reaction Status Date / Time No Known Allergies Allergy Verified 03/16/23 12:25 Review of Systems ROS Statement: Those systems with pertinent positive or pertinent negative responses have been documented in the HPI. ROS Other: All systems not noted in ROS Statement are negative. Past Medical History Past Medical History: Hyperlipidemia, Hypertension, Pneumonia, Rheumatoid Arthritis (RA), Thyroid Disorder Additional Past Medical History / Comment(s): chronic back pain, arthritis, History of Any Multi-Drug Resistant Organisms: None Reported Past Surgical History: Back Surgery Additional Past Surgical History / Comment(s): VATS procedure many years ago, decompression and fusion L4-5 and L5-S1 with transforaminal lumbar interbody fusion Past Anesthesia/Blood Transfusion Reactions: No Reported Reaction Past Psychological History: Anxiety, Bipolar, Depression Smoking Status: Current every day smoker Past Alcohol Use History: Abuse, Heavy Past Drug Use History: Cocaine, Heroin, Methamphetamine, Opiates, Prescription Drug Abuse - Past Family History Father Additional Family Medical History / Comment(s): at age 85 from metastatic cancer of unknown primary. Brother(s) Additional Family Medical History / Comment(s): Patient states he had 10 brothers and sisters and all have passed from either alcoholism or old age. Daughter(s) Additional Family Medical History / Comment(s): Patient has 4 daughters and 2 sons with no major medical problems. Mother Family Medical History: No Reported History General Exam Limitations: no limitations General appearance: alert, in no apparent distress Head exam: Present: atraumatic, normocephalic, normal inspection Eye exam: Present: normal appearance, PERRL, EOMI. Absent: scleral icterus, conjunctival injection, periorbital swelling ENT exam: Present: normal exam, mucous membranes moist Neck exam: Present: normal inspection. Absent: tenderness, meningismus, lymphadenopathy Respiratory exam: Present: normal lung sounds bilaterally. Absent: respiratory distress, wheezes, rales, rhonchi, stridor Cardiovascular Exam: Present: regular rate, normal rhythm, normal heart sounds. Absent: systolic murmur, diastolic murmur, rubs, gallop, clicks Extremities exam: Present: normal inspection, full ROM, normal capillary refill. Absent: tenderness, pedal edema, joint swelling, calf tenderness Back exam: Present: normal inspection Neurological exam: Present: alert, oriented X3 Psychiatric exam: Present: normal affect, normal mood Skin exam: Present: warm, dry, intact, normal color. Absent: rash Course Vital Signs 05/11/23 05/11/23 16:49 19:34 Temperature 99.1 F Pulse Rate 86 80 Respiratory 18 16 Rate Blood Pressure 157/85 161/87 O2 Sat by Pulse 98 99 Oximetry Medical Decision Making - Medical Decision Making Was pt. sent in by a medical professional or institution (FAY Bergman, LAND EXAMINER, urgent care, hospital, or penitentiary...) When possible be specific @ -No Did you speak to anyone other than the patient for history (EMS, parent, family, police, friend...)? What history was obtained from this source @ -No Did you review nursing and triage notes (agree or disagree)? Why? @ -I reviewed and agree with nursing and triage notes Were old charts reviewed (outside hosp., previous admission, EMS record, old EKG, old radiological studies, urgent care reports/EKG's, penitentiary records)? Report findings @ -No old charts were reviewed Differential Diagnosis (chest pain, altered mental status, abdominal pain women, abdominal pain men, vaginal bleeding, weakness, fever, dyspnea, syncope, headache, dizziness, GI bleed, back pain, seizure, CVA, palpatations, mental health, musculoskeletal)? @ -not applicable EKG interpreted by me (3pts min.). @ -none X-rays interpreted by me (1pt min.). @ -None done CT interpreted by me (1pt min.). @ -None done U/S interpreted by me (1pt. min.). @ -None done What testing was considered but not performed or refused? (CT, X-rays, U/S, labs)? Why? @ -None What meds were considered but not given or refused? Why? @ -None Did you discuss the management of the patient with other professionals (professionals i.e. FAY Bergman, LAND EXAMINER, lab, RT, psych nurse, healthcare social worker, master naval parachutist, teacher, animal services officer, case technician)? Give summary @ -No Was smoking cessation discussed for >3mins.? @ -No Was critical care preformed (if so, how long)? @ -No Were there social determinants of health that impacted care today? How? (Homelessness, low income, unemployed, alcoholism, drug addiction, transportation, low edu. Level, literacy, decrease access to med. care, senior living, rehab)? @ -No Was there de-escalation of care discussed even if they declined (Discuss DNR or withdrawal of care, Hospice)? DNR status @ -No What co-morbidities impacted this encounter? (DM, HTN, Smoking, COPD, CAD, Cancer, CVA, ARF, Chemo, Hep., AIDS, mental health diagnosis, sleep apnea, morbid obesity)? @ -None Was patient admitted / discharged? Hospital course, mention meds given and route, prescriptions, significant lab abnormalities, going to OR and other pertinent info. @ -Charge. Patient presented to the emergency department for medication management. Patient states that he was locked out of his house and has not been able to get his medications because of this. He does report a safe place to go back to. Medications discussed with patient. Patient given dose in emergency department. Temporary prescription sent to pharmacy for patient. Patient stable at time of discharge. Undiagnosed new problem with uncertain prognosis? @ -No Drug Therapy requiring intensive monitoring for toxicity (Heparin, Nitro, Insulin, Cardizem)? @ -No Were any procedures done? @ -No Diagnosis/symptom? @ -medication management Acute, or Chronic, or Acute on Chronic? @ -acute Uncomplicated (without systemic symptoms) or Complicated (systemic symptoms)? @ -uncomplicated Side effects of treatment? @ -No Exacerbation, Progression, or Severe Exacerbation? @ -No Poses a threat to life or bodily function? How? (Chest pain, [place], [place], pneumonia, PE, COPD, DKA, ARF, appy, cholecystitis, CVA, Diverticulitis, Homicidal, Suicidal, threat to staff... and all critical care pts) @ -No Disposition Clinical Impression: Encounter for medication refill Disposition: HOME SELF-CARE Condition: Stable Additional Instructions: Prescriptions were sent to [facility]. Prescriptions: Ibuprofen 800 mg PO Q8H #30 tab Levothyroxine Sodium 200 mcg PO AC-BRKFST #14 tablet Simvastatin 40 mg PO DAILY #14 tablet lisinopriL [Zestril] 5 mg PO DAILY #14 tab Is patient prescribed a controlled substance at d/c from ED?: No Referrals: None,Stated [Primary Care Provider] - 1-2 days
[2023-05-11 19:41] VITALS: BP 161/87; PULSE 80; RESP 16
== END 2023-05-11 19:42 | disposition home or self-care (01) ==
LOC: EC 16:41
DX: Z76.0 Encounter for issue of repeat prescription (principal); I10 Essential (primary) hypertension; F17.200 Nicotine dependence, unspecified, uncomplicated; F14.90 Cocaine use, unspecified, uncomplicated; F11.90 Opioid use, unspecified, uncomplicated; F15.90 Other stimulant use, unspecified, uncomplicated; F19.10 Other psychoactive substance abuse, uncomplicated
CPT/HCPCS: 99282

== ENCOUNTER 2023-07-06 13:04 | Emergency (ER) | payer MEDICARE, OTHER ==
--- NOTE | 2023-07-06 13:19 | ED ---
General Adult HPI - General Chief complaint: Back Pain/Injury Stated complaint: back pain Time Seen by Provider: 07/06/23 13:12 Source: patient, RN notes reviewed Mode of arrival: ambulatory Limitations: no limitations - History of Present Illness Initial comments: 67-year-old male presents to the emergency department for evaluation of low back pain. He states that yesterday he was working on his hot water heater and thinks that he "overdid it." Has a history of chronic back issues and follows with Dr. Grijalva. He has had surgery on his back in the past. States he has been unable to get to his pain management appointments. Denies trauma, loss of bowel or bladder function, saddle anesthesia. - Related Data Home Medications Medication Instructions Recorded Confirmed HYDROcodone/APAP 10-325MG [[place] 1 tab PO TID PRN 04/29/20 04/29/20 10-325] Previous Rx's Medication Instructions Recorded Levothyroxine Sodium [Synthroid] 150 mcg PO DAILY #30 tablet 08/26/18 Simvastatin [Zocor] 40 mg PO DAILY #30 tab 08/26/18 lisinopriL [Zestril] 5 mg PO DAILY #30 tab 08/26/18 Naloxone HCl [Narcan] 4 mg NASAL ONCE PRN #1 unit 04/29/20 Nirmatrelvir/Ritonavir [Paxlovid 1 each PO BID #1 pack 12/28/21 2X150 mg-100 mg (Eua)] Cephalexin [Keflex] 500 mg PO Q6HR 5 Days #20 cap 12/04/22 Hydrocortisone Oint 1 applic TOPICAL BID #28 gm 12/04/22 [Hydrocortisone 2.5% Oint] Ibuprofen 800 mg PO Q8H #30 tab 05/11/23 Levothyroxine Sodium 200 mcg PO AC-BRKFST #14 tablet 05/11/23 Simvastatin 40 mg PO DAILY #14 tablet 05/11/23 lisinopriL [Zestril] 5 mg PO DAILY #14 tab 05/11/23 Allergies Allergy/AdvReac Type Severity Reaction Status Date / Time No Known Allergies Allergy Verified 07/06/23 13:11 Review of Systems ROS Statement: Those systems with pertinent positive or pertinent negative responses have been documented in the HPI. ROS Other: All systems not noted in ROS Statement are negative. Past Medical History Past Medical History: Hyperlipidemia, Hypertension, Pneumonia, Rheumatoid Arthritis (RA), Thyroid Disorder Additional Past Medical History / Comment(s): chronic back pain, arthritis, History of Any Multi-Drug Resistant Organisms: None Reported Past Surgical History: Back Surgery Additional Past Surgical History / Comment(s): VATS procedure many years ago, decompression and fusion L4-5 and L5-S1 with transforaminal lumbar interbody fusion Past Anesthesia/Blood Transfusion Reactions: No Reported Reaction Past Psychological History: Anxiety, Bipolar, Depression Smoking Status: Current every day smoker Past Alcohol Use History: Abuse, Heavy Past Drug Use History: Cocaine, Heroin, Methamphetamine, Opiates, Prescription Drug Abuse - Past Family History Father Additional Family Medical History / Comment(s): at age 85 from metastatic cancer of unknown primary. Brother(s) Additional Family Medical History / Comment(s): Patient states he had 10 brothers and sisters and all have passed from either alcoholism or old age. Daughter(s) Additional Family Medical History / Comment(s): Patient has 4 daughters and 2 sons with no major medical problems. Mother Family Medical History: No Reported History General Exam Limitations: no limitations General appearance: alert, in no apparent distress Head exam: Present: atraumatic, normocephalic, normal inspection Eye exam: Present: normal appearance, PERRL, EOMI. Absent: scleral icterus, conjunctival injection, periorbital swelling ENT exam: Present: normal exam, mucous membranes moist Neck exam: Present: normal inspection. Absent: tenderness, meningismus, lymphadenopathy Respiratory exam: Present: normal lung sounds bilaterally. Absent: respiratory distress, wheezes, rales, rhonchi, stridor Cardiovascular Exam: Present: regular rate, normal rhythm, normal heart sounds. Absent: systolic murmur, diastolic murmur, rubs, gallop, clicks Extremities exam: Present: normal inspection, full ROM, normal capillary refill, other (DP and PT pulses 2+). Absent: tenderness, pedal edema, joint swelling, calf tenderness Back exam: Present: normal inspection, full ROM. Absent: CVA tenderness (R), CVA tenderness (L) Neurological exam: Present: alert, oriented X3 Psychiatric exam: Present: normal affect, normal mood Skin exam: Present: warm, dry, intact, normal color. Absent: rash Course Vital Signs 07/06/23 07/06/23 13:08 14:32 Temperature 98.5 F Pulse Rate 86 Respiratory 18 16 Rate Blood Pressure 139/89 O2 Sat by Pulse 97 Oximetry Medical Decision Making - Medical Decision Making Was pt. sent in by a medical professional or institution (, FAY, CERTIFIED WELLNESS PROGRAM MANAGER, urgent care, hospital, or jail...) When possible be specific @ -No Did you speak to anyone other than the patient for history (EMS, parent, family, police, friend...)? What history was obtained from this source @ -No Did you review nursing and triage notes (agree or disagree)? Why? @ -I reviewed and agree with nursing and triage notes Were old charts reviewed (outside hosp., previous admission, EMS record, old EKG, old radiological studies, urgent care reports/EKG's, jail records)? Report findings @ -No old charts were reviewed Differential Diagnosis (chest pain, altered mental status, abdominal pain women, abdominal pain men, vaginal bleeding, weakness, fever, dyspnea, syncope, headache, dizziness, GI bleed, back pain, seizure, CVA, palpatations, mental health, musculoskeletal)? @ -Differential Back Pain: Strain, zoster, cauda equina syndrome, epidural abscess, vertebral osteomyelitis, discitis, fracture, subluxation, disc herniation, DJD, spinal stenosis, dissection, AAA, pancreatitis, peptic ulcer disease, pyelonephritis, kidney stone, this is not meant to be an all-inclusive list. EKG interpreted by me (3pts min.). @ -none X-rays interpreted by me (1pt min.). @ -None done CT interpreted by me (1pt min.). @ -None done U/S interpreted by me (1pt. min.). @ -None done What testing was considered but not performed or refused? (CT, X-rays, U/S, labs)? Why? @ -Lumbar spine x-rays considered, patient refused What meds were considered but not given or refused? Why? @ -None Did you discuss the management of the patient with other professionals (professionals i.e. FAY Bergman, CERTIFIED WELLNESS PROGRAM MANAGER, lab, RT, psych nurse, social services aide, divorce lawyer, teacher, forest fire management officer, case worker)? Give summary @ -No Was smoking cessation discussed for >3mins.? @ -No Was critical care preformed (if so, how long)? @ -No Were there social determinants of health that impacted care today? How? (Homelessness, low income, unemployed, alcoholism, drug addiction, transportation, low edu. Level, literacy, decrease access to med. care, prison, rehab)? @ -No Was there de-escalation of care discussed even if they declined (Discuss DNR or withdrawal of care, Hospice)? DNR status @ -No What co-morbidities impacted this encounter? (DM, HTN, Smoking, COPD, CAD, Cancer, CVA, ARF, Chemo, Hep., AIDS, mental health diagnosis, sleep apnea, morbid obesity)? @ -None Was patient admitted / discharged? Hospital course, mention meds given and route, prescriptions, significant lab abnormalities, going to OR and other pertinent info. @ -Discharged. Patient presented to the emergency department for evaluation of back pain. Hx of chronic back pain, follows with Dr. Grijalva. Unable to get to pain management appointments, hoping for pain control. XR ordered but patient refused. Given toradol, lidocaine patch, tylenol for pain. Patient requests to be discharge. Patient stable at time of discharge. Case discussed with Dr. Miranda Undiagnosed new problem with uncertain prognosis? @ -No Drug Therapy requiring intensive monitoring for toxicity (Heparin, Nitro, Insulin, Cardizem)? @ -No Were any procedures done? @ -No Diagnosis/symptom? @ -Back pain Acute, or Chronic, or Acute on Chronic? @ -chronic Uncomplicated (without systemic symptoms) or Complicated (systemic symptoms)? @ -uncomplicated Side effects of treatment? @ -No Exacerbation, Progression, or Severe Exacerbation? @ -No Poses a threat to life or bodily function? How? (Chest pain, [place], [place], pneumonia, PE, COPD, DKA, ARF, appy, cholecystitis, CVA, Diverticulitis, Homicidal, Suicidal, threat to staff... and all critical care pts) @ -No Disposition Clinical Impression: Mechanical back pain Disposition: HOME SELF-CARE Condition: Stable Instructions (If sedation given, give patient instructions): Acute Low Back Pain (ED) Is patient prescribed a controlled substance at d/c from ED?: No Referrals: Shant Montano [Primary Care Provider] - 1-2 days
[2023-07-06 13:50] VITALS: BP 139/89; PULSE 86; TEMP 98.5
[2023-07-06] MEDS: LIDOCAINE 4% PATCH TOPICAL ONE (14:04)
[2023-07-06] MEDS: ACETAMINOPHEN TAB 325 MG TAB PO STA (14:04)
[2023-07-06] MEDS: KETOROLAC 15 MG/ML 1 ML VIAL IM STA (14:04)
[2023-07-06 14:51] VITALS: RESP 16
== END 2023-07-06 14:33 | disposition home or self-care (01) ==
LOC: EC 13:04
DX: G89.29 Other chronic pain (principal); M54.50 Low back pain, unspecified; I10 Essential (primary) hypertension; F17.200 Nicotine dependence, unspecified, uncomplicated; F14.90 Cocaine use, unspecified, uncomplicated; F11.90 Opioid use, unspecified, uncomplicated; F15.90 Other stimulant use, unspecified, uncomplicated; F19.10 Other psychoactive substance abuse, uncomplicated
CPT/HCPCS: 99283; 96372; J1885

== ENCOUNTER 2023-07-25 17:07 | Emergency (ER) | payer MEDICARE, OTHER ==
[2023-07-25 17:47] VITALS: TEMP 97.4
--- NOTE | 2023-07-25 19:13 | ED ---
Back Pain HPI - General Chief Complaint: Back Pain/Injury Stated Complaint: Back pain Time Seen by Provider: 07/25/23 18:26 Source: patient Limitations: no limitations - History of Present Illness Initial Comments: 67-year-old male with past medical history significant for chronic back pain, currently follows with Dr. Alford, and pain management as well. Patient reports no new injury or traumas however chronic lower back pain which she states seems to be worse than usual over the past few days. Patient was seen here prior and deferred x-ray at that time as he stated he had no new injuries or trauma and states "I do not think anything new was wrong". Patient reports that he had good relief with Toradol that was provided here however states when he got home he had nothing to take for the pain and reports that he would like to have another shot of Toradol and a prescription for this to take at home. No saddle anesthesia or incontinence. Denies urinary symptoms. No fever or chills. No chest pain or shortness of breath. No other complaints at this time. - Related Data Home Medications Medication Instructions Recorded Confirmed HYDROcodone/APAP 10-325MG [[place] 1 tab PO TID PRN 04/29/20 04/29/20 10-325] Previous Rx's Medication Instructions Recorded Levothyroxine Sodium [Synthroid] 150 mcg PO DAILY #30 tablet 08/26/18 Simvastatin [Zocor] 40 mg PO DAILY #30 tab 08/26/18 lisinopriL [Zestril] 5 mg PO DAILY #30 tab 08/26/18 Naloxone HCl [Narcan] 4 mg NASAL ONCE PRN #1 unit 04/29/20 Nirmatrelvir/Ritonavir [Paxlovid 1 each PO BID #1 pack 12/28/21 2X150 mg-100 mg (Eua)] Cephalexin [Keflex] 500 mg PO Q6HR 5 Days #20 cap 12/04/22 Hydrocortisone Oint 1 applic TOPICAL BID #28 gm 12/04/22 [Hydrocortisone 2.5% Oint] Ibuprofen 800 mg PO Q8H #30 tab 05/11/23 Levothyroxine Sodium 200 mcg PO AC-BRKFST #14 tablet 05/11/23 Simvastatin 40 mg PO DAILY #14 tablet 05/11/23 lisinopriL [Zestril] 5 mg PO DAILY #14 tab 05/11/23 Ketorolac [Toradol] 10 mg PO Q8HR #15 tab 07/25/23 Allergies Allergy/AdvReac Type Severity Reaction Status Date / Time No Known Allergies Allergy Verified 07/25/23 17:19 Review of Systems ROS Statement: Those systems with pertinent positive or pertinent negative responses have been documented in the HPI. ROS Other: All systems not noted in ROS Statement are negative. Past Medical History Past Medical History: Hyperlipidemia, Hypertension, Pneumonia, Rheumatoid Arthritis (RA), Thyroid Disorder Additional Past Medical History / Comment(s): chronic back pain, arthritis, History of Any Multi-Drug Resistant Organisms: None Reported Past Surgical History: Back Surgery Additional Past Surgical History / Comment(s): VATS procedure many years ago, decompression and fusion L4-5 and L5-S1 with transforaminal lumbar interbody fusion Past Anesthesia/Blood Transfusion Reactions: No Reported Reaction Past Psychological History: Anxiety, Bipolar, Depression Smoking Status: Current every day smoker Past Alcohol Use History: Abuse, Heavy Past Drug Use History: Cocaine, Heroin, Methamphetamine, Opiates, Prescription Drug Abuse - Past Family History Father Additional Family Medical History / Comment(s): at age 85 from metastatic cancer of unknown primary. Brother(s) Additional Family Medical History / Comment(s): Patient states he had 10 brothers and sisters and all have passed from either alcoholism or old age. Daughter(s) Additional Family Medical History / Comment(s): Patient has 4 daughters and 2 sons with no major medical problems. Mother Family Medical History: No Reported History General Exam Limitations: no limitations General appearance: alert, in no apparent distress Eye exam: Present: normal appearance Neck exam: Present: normal inspection Respiratory exam: Present: normal lung sounds bilaterally Cardiovascular Exam: Present: regular rate, normal rhythm GI/Abdominal exam: Present: soft Extremities exam: Present: other (No midline spinal tenderness to palpation. Left paraspinal tenderness to palpation.) Course Vital Signs 07/25/23 17:15 Temperature 97.4 F L Pulse Rate 89 Respiratory 16 Rate Blood Pressure 132/86 O2 Sat by Pulse 97 Oximetry Medical Decision Making - Medical Decision Making Was pt. sent in by a medical professional or institution (, PA, BOND UNDERWRITER, urgent care, hospital, or custodial...) When possible be specific @ -No Did you speak to anyone other than the patient for history (EMS, parent, family, police, friend...)? What history was obtained from this source @ -No Did you review nursing and triage notes (agree or disagree)? Why? @ -I reviewed and agree with nursing and triage notes Were old charts reviewed (outside hosp., previous admission, EMS record, old EKG, old radiological studies, urgent care reports/EKG's, custodial records)? Report findings @ -Prior chart reviewed. For further details please see HPI. Also reviewed maps on history which shows patient is prescribed Suboxone. Differential Diagnosis (chest pain, altered mental status, abdominal pain women, abdominal pain men, vaginal bleeding, weakness, fever, dyspnea, syncope, headache, dizziness, GI bleed, back pain, seizure, CVA, palpatations, mental health, musculoskeletal)? @ -Differential Musculoskeletal Muscular strain, contusion, ligament sprain, fracture, arthritis, septic arthritis, bursitis, cellulitis, muscle spasm, nerve compression, DVT, arterial occlusion, herpes zoster, electrolyte abnormality, tumor.... This is not meant to be in all inclusive list EKG interpreted by me (3pts min.). @ -None X-rays interpreted by me (1pt min.). @ -None done CT interpreted by me (1pt min.). @ -None done U/S interpreted by me (1pt. min.). @ -None done What testing was considered but not performed or refused? (CT, X-rays, U/S, labs)? Why? @ -Imaging of the spine was considered however at this time patient reports no new injuries or trauma and he states "I do not think anything new is wrong" and deferred this imaging. What meds were considered but not given or refused? Why? @ -None Did you discuss the management of the patient with other professionals (professionals i.e. ., PA, BOND UNDERWRITER, lab, RT, psych nurse, social research assistant, translational specialist, teacher, operations officer, dependency case manager)? Give summary @ -No Was smoking cessation discussed for >3mins.? @ -No Was critical care preformed (if so, how long)? @ -No Were there social determinants of health that impacted care today? How? (Homelessness, low income, unemployed, alcoholism, drug addiction, transportation, low edu. Level, literacy, decrease access to med. care, [facility], rehab)? @ -No Was there de-escalation of care discussed even if they declined (Discuss DNR or withdrawal of care, Hospice)? DNR status @ -No What co-morbidities impacted this encounter? (DM, HTN, Smoking, COPD, CAD, Cancer, CVA, ARF, Chemo, Hep., AIDS, mental health diagnosis, sleep apnea, morbid obesity)? @ -None Was patient admitted / discharged? Hospital course, mention meds given and route, prescriptions, significant lab abnormalities, going to OR and other pertinent info. @ -Discharge 67-year-old male presenting to the ED with chief complaint of back pain. Patient reports that this is chronic in nature and follows with Dr. Alford. Also reports following with pain management and review of maps shows patient is currently prescribed Suboxone. No saddle anesthesia or incontinence. No urinary symptoms. Patient reports good relief with Toradol at prior visit and is requesting shot of Toradol with additional prescription for this to take at home. Patient provided Toradol and lidocaine patch here. Discharged home with prescription for Toradol. Advise close follow-up with orthopedics and pain management. Discussed return precautions with patient who verbalized agreement. Undiagnosed new problem with uncertain prognosis? @ -No Drug Therapy requiring intensive monitoring for toxicity (Heparin, Nitro, Insulin, Cardizem)? @ -No Were any procedures done? @ -No Diagnosis/symptom? @ -Back pain Acute, or Chronic, or Acute on Chronic? @ -Acute on chronic Uncomplicated (without systemic symptoms) or Complicated (systemic symptoms)? @ -Uncomplicated clinical patient Side effects of treatment? @ -No Exacerbation, Progression, or Severe Exacerbation? @ -No Poses a threat to life or bodily function? How? (Chest pain, [place], [place], pneumonia, PE, COPD, DKA, ARF, appy, cholecystitis, CVA, Diverticulitis, Homicidal, Suicidal, threat to staff... and all critical care pts) @ -Unlikely Disposition Clinical Impression: Back pain Disposition: HOME SELF-CARE Condition: Good Additional Instructions: Please return to the Emergency Department if symptoms worsen or any other concerns. Please follow-up with orthopedics and pain management. Prescriptions: Ketorolac [Toradol] 10 mg PO Q8HR #15 tab Is patient prescribed a controlled substance at d/c from ED?: No Referrals: Shant Montano [Primary Care Provider] - 1-2 days Time of Disposition: 19:16
[2023-07-25] MEDS: KETOROLAC 15 MG/ML 1 ML VIAL IM STA (19:17)
[2023-07-25] MEDS: LIDOCAINE 4% PATCH TOPICAL STA (19:19)
[2023-07-25 19:26] VITALS: BP 132/80; PULSE 86; RESP 12
== END 2023-07-25 19:23 | disposition home or self-care (01) ==
LOC: EC 17:07
DX: M54.9 Dorsalgia, unspecified (principal); F17.200 Nicotine dependence, unspecified, uncomplicated; F14.90 Cocaine use, unspecified, uncomplicated; F11.90 Opioid use, unspecified, uncomplicated; F15.90 Other stimulant use, unspecified, uncomplicated
CPT/HCPCS: 99284; 96372; J1885

== ENCOUNTER 2023-08-23 11:25 | Emergency (ER) | payer MEDICARE, OTHER ==
[2023-08-23 11:59] VITALS: RESP 18; TEMP 98
--- NOTE | 2023-08-23 12:14 | ED ---
Back Pain HPI - General Chief Complaint: Back Pain/Injury Stated Complaint: Lower Back Pain Time Seen by Provider: 08/23/23 11:40 Source: patient, RN notes reviewed Limitations: no limitations - History of Present Illness Initial Comments: This is a 67-year-old male who presents emergency department chief complaint of lumbar back pain. Patient states that he was outside this morning when he slipped and fell falling onto the left side of his hip and back. He denies hitting his head or loss of conscious at time of event. Patient states that the pain is radiating into his left buttock and into the posterior right thigh described as a burning sensation. Patient denies saddle anesthesias, loss of bladder or bowel continence. Patient states that he has been suffering with back pain over the past 15 years. - Related Data Home Medications Medication Instructions Recorded Confirmed DULoxetine HCL [Cymbalta] 30 mg PO DAILY 08/23/23 08/23/23 Levothyroxine Sodium [Synthroid] 175 mcg PO DAILY 08/23/23 08/23/23 Previous Rx's Medication Instructions Recorded Simvastatin [Zocor] 40 mg PO DAILY #30 tab 08/26/18 lisinopriL [Zestril] 5 mg PO DAILY #14 tab 05/11/23 Cyclobenzaprine [Flexeril] 10 mg PO TID PRN #15 tab 08/23/23 Lidocaine 5% Patch [Lidoderm] 1 patch TOPICAL DAILY PRN #15 patch 08/23/23 Allergies Allergy/AdvReac Type Severity Reaction Status Date / Time No Known Allergies Allergy Verified 08/23/23 14:26 Review of Systems ROS Statement: Those systems with pertinent positive or pertinent negative responses have been documented in the HPI. ROS Other: All systems not noted in ROS Statement are negative. Past Medical History Past Medical History: Hyperlipidemia, Hypertension, Pneumonia, Rheumatoid Arthritis (RA), Thyroid Disorder Additional Past Medical History / Comment(s): chronic back pain, arthritis, History of Any Multi-Drug Resistant Organisms: None Reported Past Surgical History: Back Surgery Additional Past Surgical History / Comment(s): VATS procedure many years ago, decompression and fusion L4-5 and L5-S1 with transforaminal lumbar interbody fusion Past Anesthesia/Blood Transfusion Reactions: No Reported Reaction Past Psychological History: Anxiety, Bipolar, Depression Smoking Status: Current every day smoker Past Alcohol Use History: Abuse, Heavy Past Drug Use History: Cocaine, Heroin, Methamphetamine, Opiates, Prescription Drug Abuse - Past Family History Father Additional Family Medical History / Comment(s): at age 85 from metastatic cancer of unknown primary. Brother(s) Additional Family Medical History / Comment(s): Patient states he had 10 brothers and sisters and all have passed from either alcoholism or old age. Daughter(s) Additional Family Medical History / Comment(s): Patient has 4 daughters and 2 sons with no major medical problems. Mother Family Medical History: No Reported History General Exam - General Exam Comments Initial Comments: Visual Physical Exam Vital signs reviewed General: Well-appearing, nontoxic, no acute distress. Head: Normocephalic, atraumatic Eyes: PERRLA, EOMI ENT: Airway patent Chest: Nonlabored breathing Skin: No visual rash, normal skin tone Neuro: Alert and oriented 3 Musculoskeletal: No gross abnormalities Limitations: no limitations General appearance: alert, in no apparent distress Head exam: Present: atraumatic, normocephalic, normal inspection Eye exam: Present: normal appearance, PERRL, EOMI. Absent: scleral icterus, conjunctival injection, periorbital swelling ENT exam: Present: normal exam, mucous membranes moist Neck exam: Present: normal inspection. Absent: tenderness, meningismus, lymphadenopathy Respiratory exam: Present: normal lung sounds bilaterally. Absent: respiratory distress, wheezes, rales, rhonchi, stridor Cardiovascular Exam: Present: regular rate, normal rhythm, normal heart sounds. Absent: systolic murmur, diastolic murmur, rubs, gallop, clicks GI/Abdominal exam: Present: soft, normal bowel sounds. Absent: distended, tenderness, guarding, rebound, rigid Extremities exam: Present: normal inspection, full ROM, normal capillary refill. Absent: tenderness, pedal edema, joint swelling, calf tenderness Back exam: Present: normal inspection, full ROM, tenderness, paraspinal tenderness (left lumbar). Absent: CVA tenderness (L) Neurological exam: Present: alert, oriented X3, CN II-XII intact Psychiatric exam: Present: normal affect, normal mood Skin exam: Present: warm, dry, intact, normal color. Absent: rash Course Vital Signs 08/23/23 11:30 Temperature 98 F Pulse Rate 81 Respiratory 18 Rate Blood Pressure 148/97 O2 Sat by Pulse 98 Oximetry Medical Decision Making - Medical Decision Making Was pt. sent in by a medical professional or institution (FAY Bergman, ANSWERING SERVICE OPERATOR, urgent care, hospital, or group home...) When possible be specific @ -No Did you speak to anyone other than the patient for history (EMS, parent, family, police, friend...)? What history was obtained from this source @ -No Did you review nursing and triage notes (agree or disagree)? Why? @ -I reviewed and agree with nursing and triage notes Were old charts reviewed (outside hosp., previous admission, EMS record, old EKG, old radiological studies, urgent care reports/EKG's, group home records)? Report findings @ -No old charts were reviewed Differential Diagnosis (chest pain, altered mental status, abdominal pain women, abdominal pain men, vaginal bleeding, weakness, fever, dyspnea, syncope, headache, dizziness, GI bleed, back pain, seizure, CVA, palpatations, mental health, musculoskeletal)? @ -Differential Musculoskeletal Muscular strain, contusion, ligament sprain, fracture, arthritis, septic arthritis, bursitis, cellulitis, muscle spasm, nerve compression, DVT, arterial occlusion, herpes zoster, electrolyte abnormality, tumor.... This is not meant to be in all inclusive list EKG interpreted by me (3pts min.). @ -None X-rays interpreted by me (1pt min.). @ -X-ray of the patient's left hip and AP pelvis no acute fracture or dislocation. The lumbar spine shows satisfactory alignment without evidence of acute fracture or dislocation with post fusion changes L4-L5 and L5-S1 with severe degenerative disc disease noted from L2 through L5-S1 CT interpreted by me (1pt min.). @ -None done U/S interpreted by me (1pt. min.). @ -None done What testing was considered but not performed or refused? (CT, X-rays, U/S, labs)? Why? @ -None What meds were considered but not given or refused? Why? @ -None Did you discuss the management of the patient with other professionals (professionals i.e. FAY Bergman, ANSWERING SERVICE OPERATOR, lab, RT, psych nurse, foster care social worker, mathematics lecturer, teacher, interface control officer, counter caser)? Give summary @ -No Was smoking cessation discussed for >3mins.? @ -No Was critical care preformed (if so, how long)? @ -No Were there social determinants of health that impacted care today? How? (Homelessness, low income, unemployed, alcoholism, drug addiction, transportation, low edu. Level, literacy, decrease access to med. care, penitentiary, rehab)? @ -No Was there de-escalation of care discussed even if they declined (Discuss DNR or withdrawal of care, Hospice)? DNR status @ -No What co-morbidities impacted this encounter? (DM, HTN, Smoking, COPD, CAD, Cancer, CVA, ARF, Chemo, Hep., AIDS, mental health diagnosis, sleep apnea, morbid obesity)? @ -None Was patient admitted / discharged? Hospital course, mention meds given and route, prescriptions, significant lab abnormalities, going to OR and other pertinent info. @ -67-year-old male with chief complaint of lumbar back pain. On examination there are no noted abrasions or ecchymosis noted from the fall. Patient has pain while palpating the left lumbar spine. Patient endorses a burning sensation consistent with sciatica rating into his left buttock and into his posterior right thigh. Straight leg test negative. X-rays nonconcerning for acute fracture. Patient given IM push of Norflex, oral Tylenol, and IV push of Solu-Medrol and a lidocaine patch was applied. Reevaluation of patient for medication ministration states that he feels better and pain has subsided. Patient is stable for discharge home will be discharged with as needed muscle relaxers and instructed to use Tylenol and Motrin as needed. Patient will also be given prescription for lidocaine patches. Recommend the patient follows up with orthopedic electronic health records specialist for further evaluation and recommendation of continuation of treatment. Recommend the patient follows up with primary care provider for prescription for back brace that he has had previously. Patient is in agreement with plan. Discussed with Dr. Andrea Undiagnosed new problem with uncertain prognosis? @ -No Drug Therapy requiring intensive monitoring for toxicity (Heparin, Nitro, Insulin, Cardizem)? @ -No Were any procedures done? @ -No Diagnosis/symptom? @ lumbar back pain with sciatica, history of back pain Acute, or Chronic, or Acute on Chronic? @ -acute and acute on chronic Uncomplicated (without systemic symptoms) or Complicated (systemic symptoms)? @ -uncomplicated Side effects of treatment? @ -No Exacerbation, Progression, or Severe Exacerbation? @ -No Poses a threat to life or bodily function? How? (Chest pain, [place], [place], pneumonia, PE, COPD, DKA, ARF, appy, cholecystitis, CVA, Diverticulitis, Homicidal, Suicidal, threat to staff... and all critical care pts) @ -No Disposition Clinical Impression: Chronic lumbar pain, Back pain Narrative: Please return to the Emergency Department if symptoms worsen or any other concerns. Take Flexeril as needed for back pain. Follow-up with your primary care provider next week for further evaluation and recommendation of prescription for back brace. Disposition: HOME SELF-CARE Condition: Good Prescriptions: Cyclobenzaprine [Flexeril] 10 mg PO TID PRN #15 tab PRN Reason: Muscle Spasm Lidocaine 5% Patch [Lidoderm] 1 patch TOPICAL DAILY PRN #15 patch PRN Reason: Pain Is patient prescribed a controlled substance at d/c from ED?: No Referrals: Shant Montano [Primary Care Provider] - 1-2 days Adam Deluna DO [Doctor of Osteopathic Medicine] - 1-2 days Dyan Guo [NON-STAFF] - (Contact regarding back brace. ) Time of Disposition: 14:42
--- NOTE | 2023-08-23 12:47 | XR ---
EXAMINATION TYPE: XR lumbar spine 2 or 3V DATE OF EXAM: 08/23/2023 CLINICAL HISTORY: pain TECHNIQUE: Three views of the lumbar spine are submitted. COMPARISON: None. FINDINGS: There are 5 lumbar type vertebral bodies identified. The lumbar spine shows satisfactory alignment w ithout evidence of acute fracture or dislocation. Vertebral body heights are within normal limits. Post fusion changes L4-5 and L5-S1. Severe degenerative disc disease with endplate sclerosis noted fr om L2 through L5 S1. The overlying soft tissue appears unremarkable. IMPRESSION: No acute fracture or dislocation is seen in the lumbar spine. ICD 10 NO FRACTURE, INITIAL EVALUATION
--- NOTE | 2023-08-23 12:48 | XR ---
EXAMINATION TYPE: XR Hip LT and AP Pelvis DATE OF EXAM: 08/23/2023 CLINICAL HISTORY: pain TECHNIQUE: AP and frogleg views of the left hip are obtained. Single view pelvis is submitted. COMPARISON: None. FINDINGS: There is no acute fracture/dislocation evident. The joint space appears within normal li mits. The overlying soft tissue appears unremarkable. IMPRESSION: 1. There is no acute fracture or dislocation.ICD 10 NO FRACTURE, INITIAL EVALUATION
[2023-08-23] MEDS: LIDOCAINE 4% PATCH TOPICAL ONE (13:48)
[2023-08-23] MEDS: ACETAMINOPHEN TAB 500 MG TAB PO STA (13:48)
[2023-08-23] MEDS: methylPREDNISolone SOD SUCCI 125 MG/2 ML VIAL IM ONE (13:49)
[2023-08-23] MEDS: ORPHENADRINE 30 MG/ML 2 ML VIAL IM STA (13:50)
[2023-08-23 15:41] VITALS: BP 137/88; PULSE 77
== END 2023-08-23 15:37 | disposition home or self-care (01) ==
LOC: EC 11:25
DX: G89.29 Other chronic pain (principal); M54.42 Lumbago with sciatica, left side; F17.200 Nicotine dependence, unspecified, uncomplicated; F14.90 Cocaine use, unspecified, uncomplicated; F15.90 Other stimulant use, unspecified, uncomplicated
CPT/HCPCS: 72100; 73502; 99284; 96372 ×2; J2360; J2919

== ENCOUNTER 2024-04-26 12:06 | Emergency (ER) | payer MEDICARE, OTHER ==
--- NOTE | 2024-04-26 12:32 | ED ---
Back Pain HPI - General Chief Complaint: Back Pain/Injury Stated Complaint: Fall-back pain Time Seen by Provider: 04/26/24 12:20 Source: patient, RN notes reviewed Mode of arrival: wheelchair Limitations: no limitations - History of Present Illness Initial Comments: This is a 68-year-old male with history of chronic back pain presenting with back pain (01/06) following a fall yesterday. Patient states he suffered a slip and fall yesterday following on his left gluteus immediate pain in lower back radiating down left leg described as burning. Endorses use of Tylenol and lidocaine patches with minimal relief. Denies saddle paresthesia or urinary incontinence/retention. MD Complaint: back pain, back injury, fall Onset/Timin -: days(s) Radiation: left leg Severity scale (1-10): 9 Quality: burning Consistency: constant Improves With: immobilization Worsens With: movement Context: fall Associated Symptoms: denies other symptoms - Related Data Home Medications Medication Instructions Recorded Confirmed DULoxetine HCL [Cymbalta] 30 mg PO DAILY 08/23/23 08/23/23 Levothyroxine Sodium [Synthroid] 175 mcg PO DAILY 08/23/23 08/23/23 Previous Rx's Medication Instructions Recorded Simvastatin [Zocor] 40 mg PO DAILY #30 tab 08/26/18 lisinopriL [Zestril] 5 mg PO DAILY #14 tab 05/11/23 Cyclobenzaprine [Flexeril] 10 mg PO TID PRN #15 tab 08/23/23 Lidocaine 5% Patch [Lidoderm] 1 patch TOPICAL DAILY PRN #15 patch 08/23/23 Allergies Allergy/AdvReac Type Severity Reaction Status Date / Time No Known Allergies Allergy Verified 04/26/24 12:14 Review of Systems ROS Statement: Those systems with pertinent positive or pertinent negative responses have been documented in the HPI. ROS Other: All systems not noted in ROS Statement are negative. Past Medical History Past Medical History: Hyperlipidemia, Hypertension, Pneumonia, Rheumatoid Arthritis (RA), Thyroid Disorder Additional Past Medical History / Comment(s): chronic back pain, arthritis, History of Any Multi-Drug Resistant Organisms: None Reported Past Surgical History: Back Surgery Additional Past Surgical History / Comment(s): VATS procedure many years ago, decompression and fusion L4-5 and L5-S1 with transforaminal lumbar interbody fusion Past Anesthesia/Blood Transfusion Reactions: No Reported Reaction Past Psychological History: Anxiety, Bipolar, Depression Smoking Status: Current every day smoker Past Alcohol Use History: Abuse, Heavy Past Drug Use History: Cocaine, Heroin, Methamphetamine, Opiates, Prescription Drug Abuse - Past Family History Father Additional Family Medical History / Comment(s): at age 85 from metastatic cancer of unknown primary. Brother(s) Additional Family Medical History / Comment(s): Patient states he had 10 brothers and sisters and all have passed from either alcoholism or old age. Daughter(s) Additional Family Medical History / Comment(s): Patient has 4 daughters and 2 sons with no major medical problems. Mother Family Medical History: No Reported History General Exam Limitations: no limitations General appearance: alert, in no apparent distress Head exam: Present: atraumatic, normocephalic, normal inspection Eye exam: Present: normal appearance, PERRL, EOMI. Absent: scleral icterus, conjunctival injection, periorbital swelling ENT exam: Present: normal exam, mucous membranes moist Neck exam: Present: normal inspection. Absent: tenderness, meningismus, lymphadenopathy Respiratory exam: Present: normal lung sounds bilaterally. Absent: respiratory distress, wheezes, rales, rhonchi, stridor Cardiovascular Exam: Present: regular rate, normal rhythm, normal heart sounds. Absent: systolic murmur, diastolic murmur, rubs, gallop, clicks GI/Abdominal exam: Present: soft, normal bowel sounds. Absent: distended, tenderness, guarding, rebound, rigid Extremities exam: Present: full ROM, tenderness (Positive left paraspinal muscle spasm and point tenderness.), normal capillary refill, other (Left posterior tibialis pulse +2 with normal neurovascular and motor function.). Absent: pedal edema, joint swelling, calf tenderness Back exam: Present: normal inspection Neurological exam: Present: alert, oriented X3, CN II-XII intact Psychiatric exam: Present: normal affect, normal mood Skin exam: Present: warm, dry, intact, normal color. Absent: rash Course Vital Signs 04/26/24 04/26/24 12:12 14:51 Temperature 98.2 F 98.1 F Pulse Rate 68 67 Respiratory 20 18 Rate Blood Pressure 155/91 148/89 O2 Sat by Pulse 99 99 Oximetry Medical Decision Making - Medical Decision Making Was pt. sent in by a medical professional or institution ([facility], [employer], urgent care, hospital, or alf...) When possible be specific @ -No Did you speak to anyone other than the patient for history (EMS, parent, family, police, friend...)? What history was obtained from this source @ -No Did you review nursing and triage notes (agree or disagree)? Why? @ -I reviewed and agree with nursing and triage notes Were old charts reviewed (outside hosp., previous admission, EMS record, old EKG, old radiological studies, urgent care reports/EKG's, alf records)? Report findings @ -No old charts were reviewed Differential Diagnosis (chest pain, altered mental status, abdominal pain women, abdominal pain men, vaginal bleeding, weakness, fever, dyspnea, syncope, headache, dizziness, GI bleed, back pain, seizure, CVA, palpatations, mental health, musculoskeletal)? @ -Differential Back Pain: Strain, zoster, cauda equina syndrome, epidural abscess, vertebral osteomyelitis, discitis, fracture, subluxation, disc herniation, DJD, spinal stenosis, dissection, AAA, pancreatitis, peptic ulcer disease, pyelonephritis, kidney stone, this is not meant to be an all-inclusive list. EKG interpreted by me (3pts min.). @ -Not done X-rays interpreted by me (1pt min.). @ -Lumbar spine x-ray shows no acute fracture, postsurgical changes in stable position with moderate multilevel disc degeneration. CT interpreted by me (1pt min.). @ -None done U/S interpreted by me (1pt. min.). @ -None done What testing was considered but not performed or refused? (CT, X-rays, U/S, labs)? Why? @ -None What meds were considered but not given or refused? Why? @ -None Did you discuss the management of the patient with other professionals (professionals i.e. [facility], [employer], lab, RT, psych nurse, social services assistant, political science professor, teacher, control officer, telephonic nurse case manager)? Give summary @ -No Was smoking cessation discussed for >3mins.? @ -No Was critical care preformed (if so, how long)? @ -No Were there social determinants of health that impacted care today? How? (Homelessness, low income, unemployed, alcoholism, drug addiction, transportation, low edu. Level, literacy, decrease access to med. care, assisted, rehab)? @ -No Was there de-escalation of care discussed even if they declined (Discuss DNR or withdrawal of care, Hospice)? DNR status @ -No What co-morbidities impacted this encounter? (DM, HTN, Smoking, COPD, CAD, Cancer, CVA, ARF, Chemo, Hep., AIDS, mental health diagnosis, sleep apnea, morbid obesity)? @ -None Was patient admitted / discharged? Hospital course, mention meds given and route, prescriptions, significant lab abnormalities, going to OR and other pert inent info. @ -Lumbar spine x-ray shows no acute fracture, postsurgical changes in stable position with moderate multilevel disc degeneration. Patient given Toradol, Solu-Medrol and Norflex with relief noted by patient. Undiagnosed new problem with uncertain prognosis? @ -No Drug Therapy requiring intensive monitoring for toxicity (Heparin, Nitro, Insulin, Cardizem)? @ -No Were any procedures done? @ -No Diagnosis/symptom? @ -Sciatica, mechanical low back pain Acute, or Chronic, or Acute on Chronic? @ -Acute Uncomplicated (without systemic symptoms) or Complicated (systemic symptoms)? @ -Default Side effects of treatment? @ -No Exacerbation, Progression, or Severe Exacerbation? @ -No Poses a threat to life or bodily function? How? (Chest pain, USA, [place], pneumonia, PE, COPD, DKA, ARF, appy, cholecystitis, CVA, Diverticulitis, Homicidal, Suicidal, threat to staff... and all critical care pts) @ -No Disposition Clinical Impression: Sciatica, Mechanical back pain Disposition: HOME SELF-CARE Condition: Good Instructions (If sedation given, give patient instructions): Sciatica (ED), Acute Low Back Pain (ED) Is patient prescribed a controlled substance at d/c from ED?: No Referrals: None,Stated [Primary Care Provider] - 1-2 days Time of Disposition: 14:52
--- NOTE | 2024-04-26 13:51 | XR ---
EXAMINATION TYPE: XR lumbosacral spine min 4V DATE OF EXAM: 04/26/2024 1:32 PM COMPARISON: 08/23/2023 CLINICAL INDICATION: Male, 68 years old with history of Fall with back pain, LLE radiculopathy; TECHNIQUE: XR lumbosacral spine min 4V - Frontal, lateral , bilateral oblique and coned in L5-S1 late ral views of the spine. FINDINGS: Postsurgical changes with hardware in similar position. Hardware appears intact. Fixation s crews at L4-L5 and S1. Discectomy at L4-L5 and L5-S1. Moderate to severe degeneration changes of the spine joint space osteophyte formation No evidence of any acute osseous pathology. No evidence of lo ss of vertebral body height is seen. There is normal alignment of the lumbar vertebral bodies. Neural foramen and spinal canal are grossly patent given limitations of radiography. IMPRESSION: 1. No acute fracture. 2. Postsurgical changes with hardware in stable position. 3. Moderate multilevel disc degeneration. [facility], , 04/26/2024 1:48 PM
[2024-04-26] MEDS ORDERED: ORPHENADRINE 30 MG/ML 2 ML VIAL IVP STA (14:03)
[2024-04-26] MEDS ORDERED: KETOROLAC 15 MG/ML 1 ML VIAL IVP STA (14:03)
[2024-04-26] MEDS ORDERED: methylPREDNISolone SOD SUCCI 125 MG/2 ML VIAL IV STA (14:03)
[2024-04-26 14:52] VITALS: BP 148/89; PULSE 67; RESP 18; TEMP 98.1
[2024-04-26] MEDS: KETOROLAC 15 MG/ML 1 ML VIAL IM STA (14:53)
[2024-04-26] MEDS: ORPHENADRINE 30 MG/ML 2 ML VIAL IM STA (14:53)
[2024-04-26] MEDS: methylPREDNISolone SOD SUCCI 125 MG/2 ML VIAL IM ONE (14:53)
== END 2024-04-26 15:56 | disposition home or self-care (01) ==
LOC: EC 12:06
DX: M54.30 Sciatica, unspecified side (principal); M54.89 Other dorsalgia; F17.200 Nicotine dependence, unspecified, uncomplicated; W01.0XXA Fall on same level from slipping, tripping and stumbling without subsequent striking against object, initial encounter
CPT/HCPCS: 99283; 96372; 72110; J2360; J1885; J2919

== ENCOUNTER 2024-07-07 11:04 | Emergency (ER) | payer MEDICARE, OTHER ==
[2024-07-07 11:11] VITALS: RESP 18
--- NOTE | 2024-07-07 12:01 | ED ---
General Adult HPI - General Chief complaint: Upper Respiratory Infection Stated complaint: cough congestion Time Seen by Provider: 07/07/24 11:12 Source: patient Mode of arrival: ambulatory Limitations: no limitations - History of Present Illness Initial comments: 68-year-old male presents to the emergency department for URI symptoms x 4 days. Patient states that he has had cough, congestion. He notes that he had a fever initially but has not had a fever today. Admits to body aches and chills. Reports a history of hypertension, hyperlipidemia. He denies any alcohol use. Patient initially denied drug use but then admitted to methamphetamine use. - Related Data Home Medications Medication Instructions Recorded Confirmed DULoxetine HCL [Cymbalta] 30 mg PO DAILY 08/23/23 08/23/23 Levothyroxine Sodium [Synthroid] 175 mcg PO DAILY 08/23/23 08/23/23 Previous Rx's Medication Instructions Recorded Simvastatin [Zocor] 40 mg PO DAILY #30 tab 08/26/18 lisinopriL [Zestril] 5 mg PO DAILY #14 tab 05/11/23 Cyclobenzaprine [Flexeril] 10 mg PO TID PRN #15 tab 08/23/23 Lidocaine 5% Patch [Lidoderm] 1 patch TOPICAL DAILY PRN #15 patch 08/23/23 Amoxic-Pot Clav 875-125Mg 1 tab PO Q12HR 10 Days #20 tab 07/07/24 [Augmentin 875-125] Azithromycin [Zithromax Z Pack] 0 tab PO DIRECTED #6 tab 07/07/24 Allergies Allergy/AdvReac Type Severity Reaction Status Date / Time No Known Allergies Allergy Verified 07/07/24 11:10 Review of Systems ROS Statement: Those systems with pertinent positive or pertinent negative responses have been documented in the HPI. ROS Other: All systems not noted in ROS Statement are negative. Past Medical History Past Medical History: Hyperlipidemia, Hypertension, Pneumonia, Rheumatoid Arthritis (RA), Thyroid Disorder Additional Past Medical History / Comment(s): chronic back pain, arthritis, History of Any Multi-Drug Resistant Organisms: None Reported Past Surgical History: Back Surgery Additional Past Surgical History / Comment(s): VATS procedure many years ago, decompression and fusion L4-5 and L5-S1 with transforaminal lumbar interbody fusion Past Anesthesia/Blood Transfusion Reactions: No Reported Reaction Past Psychological History: Anxiety, Bipolar, Depression Smoking Status: Current every day smoker Past Alcohol Use History: Abuse, Heavy Past Drug Use History: Cocaine, Heroin, Methamphetamine, Opiates, Prescription Drug Abuse - Past Family History Father Additional Family Medical History / Comment(s): at age 85 from metastatic cancer of unknown primary. Brother(s) Additional Family Medical History / Comment(s): Patient states he had 10 brothers and sisters and all have passed from either alcoholism or old age. Daughter(s) Additional Family Medical History / Comment(s): Patient has 4 daughters and 2 sons with no major medical problems. Mother Family Medical History: No Reported History General Exam Limitations: no limitations General appearance: alert, in no apparent distress Head exam: Present: atraumatic, normocephalic, normal inspection Course Vital Signs 07/07/24 07/07/24 07/07/24 11:07 11:20 13:59 Temperature 97.8 F 99.1 F Pulse Rate 75 69 Respiratory 18 18 18 Rate Blood Pressure 116/74 O2 Sat by Pulse 96 94 L Oximetry 07/07/24 07/07/24 07/07/24 14:42 14:52 15:15 Temperature 98.6 F Pulse Rate 72 76 77 Respiratory 18 Rate Blood Pressure 135/72 O2 Sat by Pulse 96 Oximetry 07/07/24 07/07/24 16:47 17:34 Temperature 98.4 F 98.3 F Pulse Rate 72 74 Respiratory 18 18 Rate Blood Pressure 129/76 130/72 O2 Sat by Pulse 96 96 Oximetry Medical Decision Making - Medical Decision Making Was pt. sent in by a medical professional or institution (, PA, ADDING MACHINE SERVICER, urgent care, hospital, or custodial...) When possible be specific @ -No Did you speak to anyone other than the patient for history (EMS, parent, family, police, friend...)? What history was obtained from this source @ -No Did you review nursing and triage notes (agree or disagree)? Why? @ -I reviewed and agree with nursing and triage notes Were old charts reviewed (outside hosp., previous admission, EMS record, old EKG, old radiological studies, urgent care reports/EKG's, custodial records)? Report findings @ -No old charts were reviewed Differential Diagnosis (chest pain, altered mental status, abdominal pain women, abdominal pain men, vaginal bleeding, weakness, fever, dyspnea, syncope, headache, dizziness, GI bleed, back pain, seizure, CVA, palpatations, mental health, musculoskeletal)? @ -Differential Fever: Pneumonia, viral URI, endocarditis, myocarditis, pericarditis, otitis, sinusitis, peritonsillar Abscess, retropharyngeal Abscess, epiglottitis, peritonitis, appendicitis, Lillian cystitis, diverticulitis, hepatitis, colitis, UTI, PID, TOA, pyelonephritis, prostatitis, epididymitis, meningitis, encephalitis, pulmonary embolism, CVA, thyroid storm, pancreatitis, adrenal crisis, cavernous sinus thrombosis, this is not meant to be an all-inclusive list. EKG interpreted by me (3pts min.). @ -None X-rays interpreted by me (1pt min.). @ -Chest x-ray shows left lower lung airspace opacity CT interpreted by me (1pt min.). @ -None done U/S interpreted by me (1pt. min.). @ -None done What testing was considered but not performed or refused? (CT, X-rays, U/S, labs)? Why? @ -None What meds were considered but not given or refused? Why? @ -None Did you discuss the management of the patient with other professionals (professionals i.e. , PA, ADDING MACHINE SERVICER, lab, RT, psych nurse, neonatal social worker, measurer, teacher, [employer] plans staff officer, case specialist)? Give summary @ -No Was smoking cessation discussed for >3mins.? @ -No Was critical care preformed (if so, how long)? @ -No Were there social determinants of health that impacted care today? How? (Homelessness, low income, unemployed, alcoholism, drug addiction, transportation, low edu. Level, literacy, decrease access to med. care, snf, rehab)? @ -No Was there de-escalation of care discussed even if they declined (Discuss DNR or withdrawal of care, Hospice)? DNR status @ -No What co-morbidities impacted this encounter? (DM, HTN, Smoking, COPD, CAD, Cancer, CVA, ARF, Chemo, Hep., AIDS, mental health diagnosis, sleep apnea, morbid obesity)? @ -None Was patient admitted / discharged? Hospital course, mention meds given and route, prescriptions, significant lab abnormalities, going to OR and other pertinent info. @ -Discharge.Patient presented to the emergency department for evaluation of fever and cough x 4 days. Laboratory studies obtained revealing no significant leukocytosis, hemoglobin 11.8; mild hypokalemia with a potassium of 3.4 replenished orally. BUN 27, creatinine 1.42 patient was administered IV fluids. He is influenza A. Chest x-ray shows left lower lung airspace opacity. Patient was administered a dose of Rocephin and azithromycin for pneumonia. Vital signs are stable and the patient is feeling well patient will be discharged home on p.o. antibiotics. He is understanding agreeable with this plan. Patient stable at time of discharge. Case discussed with Dr. Jones Undiagnosed new problem with uncertain prognosis? @ -No Drug Therapy requiring intensive monitoring for toxicity (Heparin, Nitro, Insulin, Cardizem)? @ -No Were any procedures done? @ -No Diagnosis/symptom? @ -influenza A, pneumonia Acute, or Chronic, or Acute on Chronic? @ -acute Uncomplicated (without systemic symptoms) or Complicated (systemic symptoms)? @ -uncomplicated Side effects of treatment? @ -No Exacerbation, Progression, or Severe Exacerbation? @ -No Poses a threat to life or bodily function? How? (Chest pain, USA, [place], pneumonia, PE, COPD, DKA, ARF, appy, cholecystitis, CVA, Diverticulitis, Homicidal, Suicidal, threat to staff... and all critical care pts) @ -No - Lab Data Result diagrams: 07/07/24 12:08 07/07/24 12:08 Lab Results 07/07/24 07/07/24 07/07/24 Range/Units 12:08 12:08 12:08 WBC 4.9 (3.8-10.6) k/uL RBC 3.55 L (4.30-5.90) m/uL Hgb 11.8 L (13.0-17.5) gm/dL Hct 36.0 L (39.0-53.0) % MCV 101.4 H (80.0-100.0) fL MCH 33.2 (25.0-35.0) pg MCHC 32.7 (31.0-37.0) g/dL RDW 14.6 (11.5-15.5) % Plt Count 134 L (150-450) k/uL MPV 7.9 Neutrophils % 72 % Lymphocytes % 23 % Monocytes % 2 % Eosinophils % 0 % Basophils % 0 % Neutrophils # 3.5 (1.3-7.7) k/uL Lymphocytes # 1.1 (1.0-4.8) k/uL Monocytes # 0.1 (0-1.0) k/uL Eosinophils # 0.0 (0-0.7) k/uL Basophils # 0.0 (0-0.2) k/uL Macrocytosis Slight Sodium 136 L (137-145) mmol/L Potassium 3.4 L (3.5-5.1) mmol/L Chloride 103 (98-107) mmol/L Carbon Dioxide 29 (22-30) mmol/L Anion Gap 4 mmol/L BUN 27 H (9-20) mg/dL Creatinine 1.42 H (0.66-1.25) mg/dL Est GFR (CKD-EPI)AfAm 58 (>60 ml/min/1.73 sqM) Est GFR (CKD-EPI)NonAf 50 (>60 ml/min/1.73 sqM) Glucose 131 H (74-99) mg/dL Calcium 8.8 (8.4-10.2) mg/dL Total Bilirubin 0.9 (0.2-1.3) mg/dL AST 242 H (17-59) U/L ALT 133 H (4-49) U/L Alkaline Phosphatase 43 (38-126) U/L Total Protein 6.7 (6.3-8.2) g/dL Albumin 3.5 (3.5-5.0) g/dL Influenza Type A (PCR) Detected A (Not Detectd) Influenza Type B (PCR) Not Detected (Not Detectd) RSV (PCR) Not Detected (Not Detectd) SARS-CoV-2 (PCR) Not Detected (Not Detectd) Disposition Clinical Impression: Pneumonia, Influenza A Disposition: HOME SELF-CARE Condition: Stable Instructions (If sedation given, give patient instructions): Pneumonia (ED) Additional Instructions: Please pharmacy picking tech antibiotics and take to completion. Follow up with your primary care provider. Return to the emergency department for new or worsening symptoms. Prescriptions: Amoxic-Pot Clav 875-125Mg [Augmentin 875-125] 1 tab PO Q12HR 10 Days #20 tab Azithromycin [Zithromax Z Pack] 0 tab PO DIRECTED #6 tab Is patient prescribed a controlled substance at d/c from ED?: No Referrals: Elle Hollingsworth [facility] [REFERRING] - 1-2 days
[2024-07-07 12:24] LABS: Basophils % (A) 0 %; Eosinophils % (A) 0 %; HGB 11.8 gm/dL (13.0-17.5); Lymphocytes # (A) 1.1 k/uL (1.0-4.8); Lymphocytes % (A) 23 %; MCH 33.2 pg (25.0-35.0); MCHC 32.7 g/dL (31.0-37.0); MCV 101.4 fL (80.0-100.0); Macrocytosis Slight; Mean Platelet Volume 7.9; Monocytes # (A) 0.1 k/uL (0-1.0); Monocytes % (A) 2 %; Neutrophils # (A) 3.5 k/uL (1.3-7.7); Neutrophils % (A) 72 %; Platelet Count 134 k/uL (150-450); RBC 3.55 m/uL (4.30-5.90); RDW 14.6 % (11.5-15.5); WBC 4.9 k/uL (3.8-10.6)
[2024-07-07 12:40] LABS: ALT 133 U/L (4-49); AST 242 U/L (17-59); African American GFR (CKD) 58 (>60 ml/min/1.73 sqM); Albumin 3.5 g/dL (3.5-5.0); Alkaline Phosphatase 43 U/L (38-126); Anion Gap 4 mmol/L; Blood Urea Nitrogen 27 mg/dL (9-20); Calcium 8.8 mg/dL (8.4-10.2); Carbon Dioxide 29 mmol/L (22-30); Chloride 103 mmol/L (98-107); Glucose 131 mg/dL (74-99); Non-African American GFR(CKD) 50 (>60 ml/min/1.73 sqM); Potassium 3.4 mmol/L (3.5-5.1); Sodium 136 mmol/L (137-145); Total Bilirubin 0.9 mg/dL (0.2-1.3); Total Protein 6.7 g/dL (6.3-8.2)
--- NOTE | 2024-07-07 12:45 | XR ---
EXAMINATION TYPE: XR chest 2V DATE OF EXAM: 07/07/2024 12:29 PM COMPARISON: Chest radiographs from 12/28/2021 CLINICAL INDICATION: Male, 68 years old with history of cough; [facility] TECHNIQUE: XR chest 2V Frontal and lateral views of the chest. FINDINGS: Lungs/Pleura: Airspace opacities of the left lower lung. There is no evidence of pleural effusion, fo bentley consolidation, or pneumothorax. Pulmonary vascularity: Unremarkable. Heart/mediastinum: Cardiomediastinal silhouette is unremarkable. Musculoskeletal: No acute osseous pathology. Remote right-sided rib fractures. Other findings: None Lines/Tubes: IMPRESSION: Left lower lung airspace opacity correlate for pneumonia. [facility], , 07/07/2024 12:43 PM
[2024-07-07 13:02] LABS: Influenza A Detected (Not Detectd); Influenza B Not Detected (Not Detectd); RSV Not Detected (Not Detectd)
[2024-07-07] MEDS: SODIUM CHLORIDE 0.9% 1,000 ML IV ONE (14:12)
[2024-07-07] MEDS: IPRATROPIUM-ALBUTEROL 3 ML NEB INHALATION STA (14:41)
[2024-07-07] MEDS: POTASSIUM CHLORIDE ER 20 MEQ TAB.ER PO STA (15:32)
[2024-07-07] MEDS: AZITHROMYCIN 500 MG in SODIUM CHLORIDE 0.9% 250 ML IVPB STA (15:52)
[2024-07-07 17:36] VITALS: BP 130/72; PULSE 74; TEMP 98.3
== END 2024-07-07 17:36 | disposition home or self-care (01) ==
LOC: EC 11:04
DX: J10.1 Influenza due to other identified influenza virus with other respiratory manifestations (principal); F17.200 Nicotine dependence, unspecified, uncomplicated
CPT/HCPCS: 99284 ×2; 96365 ×2; 96366 ×2; 96368 ×2; 96361 ×2; 36415; 94640; 80053; 85025; 87636; 71046; J0456; J0696

== ENCOUNTER 2024-08-01 16:07 | Emergency (ER) | payer MEDICARE, OTHER ==
--- NOTE | 2024-08-01 16:28 | ED ---
Recheck HPI - General Chief Complaint: Eye Problems Stated Complaint: urogential Time Seen by Provider: 08/01/24 16:27 Source: patient, RN notes reviewed, old records reviewed Mode of arrival: wheelchair Limitations: no limitations - History of Present Illness Initial Comments: This is a 68 male to the ER for evaluation as patient presents today for seymour luation of significant leg swelling eyelid swelling eye swelling recently treated for pneumonia and was diagnosed with influenza as well. Patient admits to being homeless states he is not sleeping well restless and believes antibiotics may be causing swelling. Otherwise no complaints MD Complaint: other (Swelling of area around the eyes and lower extremities) -: days(s) Symptoms Since Prior Visit: no new symptoms Associated Symptoms: none Treatments Prior to Arrival: other (0) - Related Data Home Medications Medication Instructions Recorded Confirmed DULoxetine HCL [Cymbalta] 30 mg PO DAILY 08/23/23 08/23/23 Levothyroxine Sodium [Synthroid] 175 mcg PO DAILY 08/23/23 08/23/23 Previous Rx's Medication Instructions Recorded Simvastatin [Zocor] 40 mg PO DAILY #30 tab 08/26/18 lisinopriL [Zestril] 5 mg PO DAILY #14 tab 05/11/23 Cyclobenzaprine [Flexeril] 10 mg PO TID PRN #15 tab 08/23/23 Lidocaine 5% Patch [Lidoderm] 1 patch TOPICAL DAILY PRN #15 patch 08/23/23 Amoxic-Pot Clav 875-125Mg 1 tab PO Q12HR 10 Days #20 tab 07/07/24 [Augmentin 875-125] Azithromycin [Zithromax Z Pack] 0 tab PO DIRECTED #6 tab 07/07/24 Furosemide [Lasix] 40 mg PO DAILY #5 tablet 08/01/24 predniSONE 50 mg PO DAILY #5 tab 08/01/24 Allergies Allergy/AdvReac Type Severity Reaction Status Date / Time No Known Allergies Allergy Verified 08/01/24 16:25 Review of Systems ROS Statement: Those systems with pertinent positive or pertinent negative responses have been documented in the HPI. ROS Other: All systems not noted in ROS Statement are negative. Past Medical History Past Medical History: Hyperlipidemia, Hypertension, Pneumonia, Rheumatoid A rthritis (RA), Thyroid Disorder Additional Past Medical History / Comment(s): chronic back pain, arthritis, History of Any Multi-Drug Resistant Organisms: None Reported Past Surgical History: Back Surgery Additional Past Surgical History / Comment(s): VATS procedure many years ago, decompression and fusion L4-5 and L5-S1 with transforaminal lumbar interbody fusion Past Anesthesia/Blood Transfusion Reactions: No Reported Reaction Past Psychological History: Anxiety, Bipolar, Depression Smoking Status: Current every day smoker Past Alcohol Use History: Abuse, Heavy Past Drug Use History: Cocaine, Heroin, Methamphetamine, Opiates, Prescription Drug Abuse - Past Family History Father Additional Family Medical History / Comment(s): at age 85 from metastatic cancer of unknown primary. Brother(s) Additional Family Medical History / Comment(s): Patient states he had 10 brothers and sisters and all have passed from either alcoholism or old age. Daughter(s) Additional Family Medical History / Comment(s): Patient has 4 daughters and 2 sons with no major medical problems. Mother Family Medical History: No Reported History General Exam Limitations: no limitations General appearance: alert, in no apparent distress Head exam: Present: atraumatic, normocephalic, normal inspection Eye exam: Present: normal appearance, PERRL, EOMI. Absent: scleral icterus, conjunctival injection, periorbital swelling ENT exam: Present: normal exam, mucous membranes moist Neck exam: Present: normal inspection. Absent: tenderness, meningismus, lymphadenopathy Respiratory exam: Present: normal lung sounds bilaterally. Absent: respiratory distress, wheezes, rales, rhonchi, stridor Cardiovascular Exam: Present: regular rate, normal rhythm, normal heart sounds. Absent: systolic murmur, diastolic murmur, rubs, gallop, clicks GI/Abdominal exam: Present: soft, normal bowel sounds. Absent: distended, tenderness, guarding, rebound, rigid Extremities exam: Present: normal inspection, full ROM, normal capillary refill. Absent: tenderness, pedal edema, joint swelling, calf tenderness Back exam: Present: normal inspection Neurological exam: Present: alert, oriented X3, CN II-XII intact Psychiatric exam: Present: normal affect, normal mood Skin exam: Present: warm, dry, intact, normal color. Absent: rash Course Vital Signs 08/01/24 08/01/24 08/01/24 16:20 16:48 17:01 Temperature 98.4 F Pulse Rate 66 66 68 Respiratory 20 Rate Blood Pressure 148/92 O2 Sat by Pulse 93 L Oximetry 08/01/24 08/01/24 08/01/24 18:15 18:25 18:35 Temperature Pulse Rate 68 65 68 Respiratory 18 Rate Blood Pressure 132/112 O2 Sat by Pulse 91 L Oximetry 08/01/24 19:24 Temperature 98.0 F Pulse Rate 67 Respiratory 18 Rate Blood Pressure 125/85 O2 Sat by Pulse 95 Oximetry - Reevaluation(s) Reevaluation #1: 08/01/24 17:01 Medical records reviewed Reevaluation #2: 08/01/24 20:08 Patient symptoms improving Reevaluation #3: 08/01/24 20:08 Patient informed of results and questions answered Reevaluation #4: Was pt. sent in by a medical professional or institution ([facility], [employer], urgent care, hospital, or retirement...) When possible be specific @ -no Did you speak to anyone other than the patient for history (EMS, parent, family, police, friend...)? What history was obtained from this source @ -no Did you review nursing and triage notes (agree or disagree)? Why? @ -agree Are old charts reviewed (outside hosp., previous admission, EMS record, old EKG, old radiological studies, urgent care reports/EKG's, retirement records)? Report findings @ -yes Differential Diagnosis (chest pain, altered mental status, abdominal pain women, abdominal pain men, vaginal bleeding, weakness, fever, dyspnea, syncope, heada libby, dizziness, GI bleed, back pain, seizure, CVA, palpatations, mental health, musculoskeletal)? @ -prior EKG interpreted by me (3pts min.). @ -yes X-rays interpreted by me (1pt min.). @ -yes negative for acute disease CT interpreted by me (1pt min.). @ -no U/S interpreted by me (1pt. min.). @ -no What testing was considered but not performed or refused? (CT, X-rays, U/S, labs)? Why? @ -none What meds were considered but not given or refused? Why? @ -none Did you discuss the management of the patient with other professionals (professionals i.e. [facility]man, [employer], lab, RT, psych nurse, manager social, landscape gardener, teacher, immigration services officer, case checker)? Give summary @ -no Was smoking cessation discussed for >3mins.? @ -no Was critical care preformed (if so, how long)? @ -no Were there social determinants of health that impacted care today? How? (Homelessness, low income, unemployed, alcoholism, drug addiction, transportation, low edu. Level, literacy, decrease access to med. care, residential, rehab)? @ -none Was there de-escalation of care discussed even if they declined (Discuss DNR or withdrawal of care, Hospice)? DNR status @ -no What co-morbidities impacted this encounter? (DM, HTN, Smoking, COPD, CAD, Cancer, CVA, ARF, Chemo, Hep., AIDS, mental health diagnosis, sleep apnea, morb id obesity)? @ -none Was patient admitted / discharged? Hospital course, mention meds given and rou te, prescriptions, significant lab abnormalities, going to OR and other pertinent info. @ - Undiagnosed new problem with uncertain prognosis? @ -no Drug Therapy requiring intensive monitoring for toxicity (Heparin, Nitro, Insulin, Cardizem)? @ -no Were any procedures done? @ -no Diagnosis/symptom? @ - Acute, or Chronic, or Acute on Chronic? @ -Acute Uncomplicated (without systemic symptoms) or Complicated (systemic symptoms)? @ -Complicated Side effects of treatment? @ -no Exacerbation, Progression, or Severe Exacerbation? @ -exacerbation Poses a threat to life or bodily function? How? (Chest pain, [place], [place], pneumonia, PE, COPD, DKA, ARF, appy, cholecystitis, CVA, Diverticulitis, Homicidal, Suicidal, threat to staff... and all critical care pts) @ -yes Medical Decision Making - Medical Decision Making 68 male with multiple complaints. Patient is known to be recently homeless with multiple ER visits as well. Patient does have eyelid edema normal chest x-ray. Antibiotics lower extremity edema, patient given steroids and diuresis and can be discharged home - Lab Data Result diagrams: 08/01/24 16:50 08/01/24 16:50 Lab Results 08/01/24 08/01/24 08/01/24 Range/Units 16:50 16:50 16:50 WBC 5.1 (3.8-10.6) k/uL RBC 3.56 L (4.30-5.90) m/uL Hgb 11.9 L (13.0-17.5) gm/dL Hct 36.3 L (39.0-53.0) % MCV 102.1 H (80.0-100.0) fL MCH 33.4 (25.0-35.0) pg MCHC 32.7 (31.0-37.0) g/dL RDW 14.7 (11.5-15.5) % Plt Count 150 (150-450) k/uL MPV 7.7 Neutrophils % 59 % Lymphocytes % 31 % Monocytes % 5 % Eosinophils % 3 % Basophils % 1 % Neutrophils # 3.0 (1.3-7.7) k/uL Lymphocytes # 1.6 (1.0-4.8) k/uL Monocytes # 0.3 (0-1.0) k/uL Eosinophils # 0.2 (0-0.7) k/uL Basophils # 0.0 (0-0.2) k/uL Macrocytosis Slight PT 12.2 (10.0-12.5) sec INR 1.1 (<1.2) APTT 23.4 (22.0-30.0) sec Sodium 134 L (137-145) mmol/L Potassium 4.4 (3.5-5.1) mmol/L Chloride 100 (98-107) mmol/L Carbon Dioxide 28 (22-30) mmol/L Anion Gap 6 mmol/L BUN 23 H (9-20) mg/dL Creatinine 1.41 H (0.66-1.25) mg/dL Est GFR (CKD-EPI)AfAm 59 (>60 ml/min/1.73 sqM) Est GFR (CKD-EPI)NonAf 51 (>60 ml/min/1.73 sqM) Glucose 93 (74-99) mg/dL Plasma Lactic Acid Kalia (0.7-2.0) mmol/L Calcium 9.7 (8.4-10.2) mg/dL Phosphorus 3.5 (2.5-4.5) mg/dL Magnesium 1.7 (1.6-2.3) mg/dL Total Bilirubin 0.9 (0.2-1.3) mg/dL AST 160 H (17-59) U/L ALT 88 H (4-49) U/L Alkaline Phosphatase 51 (38-126) U/L Troponin I (0.000-0.034) ng/mL NT-Pro-B Natriuret Pep 109 pg/mL Total Protein 7.9 (6.3-8.2) g/dL Albumin 4.1 (3.5-5.0) g/dL Serum Alcohol <10 mg/dL 08/01/24 08/01/24 Range/Units 16:50 16:50 WBC (3.8-10.6) k/uL RBC (4.30-5.90) m/uL Hgb (13.0-17.5) gm/dL Hct (39.0-53.0) % MCV (80.0-100.0) fL MCH (25.0-35.0) pg MCHC (31.0-37.0) g/dL RDW (11.5-15.5) % Plt Count (150-450) k/uL MPV Neutrophils % % Lymphocytes % % Monocytes % % Eosinophils % % Basophils % % Neutrophils # (1.3-7.7) k/uL Lymphocytes # (1.0-4.8) k/uL Monocytes # (0-1.0) k/uL Eosinophils # (0-0.7) k/uL Basophils # (0-0.2) k/uL Macrocytosis PT (10.0-12.5) sec INR (<1.2) APTT (22.0-30.0) sec Sodium (137-145) mmol/L Potassium (3.5-5.1) mmol/L Chloride (98-107) mmol/L Carbon Dioxide (22-30) mmol/L Anion Gap mmol/L BUN (9-20) mg/dL Creatinine (0.66-1.25) mg/dL Est GFR (CKD-EPI)AfAm (>60 ml/min/1.73 sqM) Est GFR (CKD-EPI)NonAf (>60 ml/min/1.73 sqM) Glucose (74-99) mg/dL Plasma Lactic Acid Kalia 0.8 (0.7-2.0) mmol/L Calcium (8.4-10.2) mg/dL Phosphorus (2.5-4.5) mg/dL Magnesium (1.6-2.3) mg/dL Total Bilirubin (0.2-1.3) mg/dL AST (17-59) U/L ALT (4-49) U/L Alkaline Phosphatase (38-126) U/L Troponin I <0.012 (0.000-0.034) ng/mL NT-Pro-B Natriuret Pep pg/mL Total Protein (6.3-8.2) g/dL Albumin (3.5-5.0) g/dL Serum Alcohol mg/dL - EKG Data -: EKG Interpreted by Me (EKG is sinus 74 DC 172 QRS 94 QTc 389) Disposition Clinical Impression: Weakness generalized, Pulmonary edema, Eyelid edema, Bilateral leg edema, COPD (chronic obstructive pulmonary disease) Disposition: HOME SELF-CARE Instructions (If sedation given, give patient instructions): COPD (Chronic Obstructive Pulmonary Disease) (ED), Leg Edema (ED), Edema (ED) Prescriptions: Furosemide [Lasix] 40 mg PO DAILY #5 tablet predniSONE 50 mg PO DAILY #5 tab Is patient prescribed a controlled substance at d/c from ED?: No Referrals: None,Stated [Primary Care Provider] - 1-2 days Time of Disposition: 18:00
[2024-08-01] MEDS: IPRATROPIUM-ALBUTEROL 3 ML NEB INHALATION STA ×2 (16:48→18:25)
[2024-08-01] MEDS: SODIUM CHLORIDE 0.9% 1,000 ML IV ONE ×2 (16:54→16:55)
[2024-08-01] MEDS: DEXAMETHASONE SOD PHOSPHATE 10 MG/ML 1 ML VIAL IVP STA (16:55)
[2024-08-01] MEDS ORDERED: SODIUM CHLORIDE 0.9% 1,000 ML IV SCH (17:00)
[2024-08-01 17:05] LABS: Basophils % (A) 1 %; Eosinophils # (A) 0.2 k/uL (0-0.7); Eosinophils % (A) 3 %; HCT 36.3 % (39.0-53.0); HGB 11.9 gm/dL (13.0-17.5); Lymphocytes # (A) 1.6 k/uL (1.0-4.8); Lymphocytes % (A) 31 %; MCH 33.4 pg (25.0-35.0); MCHC 32.7 g/dL (31.0-37.0); MCV 102.1 fL (80.0-100.0); Macrocytosis Slight; Mean Platelet Volume 7.7; Monocytes # (A) 0.3 k/uL (0-1.0); Monocytes % (A) 5 %; Neutrophils % (A) 59 %; Platelet Count 150 k/uL (150-450); RBC 3.56 m/uL (4.30-5.90); RDW 14.7 % (11.5-15.5); WBC 5.1 k/uL (3.8-10.6)
[2024-08-01 17:14] LABS: INR 1.1 (<1.2); Partial Thromboplastin Time 23.4 sec (22.0-30.0); Prothrombin Time 12.2 sec (10.0-12.5)
[2024-08-01 17:19] LABS: ALT 88 U/L (4-49); AST 160 U/L (17-59); African American GFR (CKD) 59 (>60 ml/min/1.73 sqM); Albumin 4.1 g/dL (3.5-5.0); Alcohol <10 mg/dL; Alkaline Phosphatase 51 U/L (38-126); Anion Gap 6 mmol/L; Blood Urea Nitrogen 23 mg/dL (9-20); Calcium 9.7 mg/dL (8.4-10.2); Carbon Dioxide 28 mmol/L (22-30); Chloride 100 mmol/L (98-107); Glucose 93 mg/dL (74-99); Magnesium 1.7 mg/dL (1.6-2.3); Non-African American GFR(CKD) 51 (>60 ml/min/1.73 sqM); Phosphorus 3.5 mg/dL (2.5-4.5); Potassium 4.4 mmol/L (3.5-5.1); Sodium 134 mmol/L (137-145); Total Bilirubin 0.9 mg/dL (0.2-1.3); Total Protein 7.9 g/dL (6.3-8.2)
--- NOTE | 2024-08-01 17:26 | XR ---
EXAMINATION TYPE: XR chest 2V DATE OF EXAM: 08/01/2024 5:09 PM COMPARISON: Prior chest radiograph 07/07/2024. CLINICAL INDICATION: Male, 68 years old with history of Weakness; [facility] TECHNIQUE: XR chest 2V Frontal and lateral views of the chest. FINDINGS: Cardiac silhouette is stable from prior study. The lung volumes. Patchy infiltrative opacities in the right mid lung and left lung base. No sizable pleural effusion. No pneumothorax. No acute osseous abnormality. IMPRESSION: Patchy bilateral infiltrative opacities suspicious for multifocal pneumonia in the appropriate clinic al setting. [facility], , 08/01/2024 5:24 PM
[2024-08-01 17:27] LABS: NT-Pro-B-Type Natriuretic Pept 109 pg/mL
[2024-08-01] MEDS: methylPREDNISolone SOD SUCCI 125 MG/2 ML VIAL IV STA (18:13)
[2024-08-01] MEDS: FUROSEMIDE 10 MG/ML 4 ML VIAL IV STA (18:14)
[2024-08-01 18:22] VITALS: RESP 18
[2024-08-01 19:27] VITALS: BP 125/85; PULSE 67; TEMP 98
== END 2024-08-01 19:26 | disposition home or self-care (01) ==
LOC: EC 16:07
DX: R53.1 Weakness (principal); J44.9 Chronic obstructive pulmonary disease, unspecified; H02.849 Edema of unspecified eye, unspecified eyelid; R60.0 Localized edema; Z59.00 Homelessness unspecified; F17.200 Nicotine dependence, unspecified, uncomplicated
CPT/HCPCS: 36415; 94640 ×2; 93005; 83880; 80053; 83605; 83735; 84100; 84484; 85025; 85610; 85730; 71046; 99284; 96374; 96375; 96361; G0480; J1100; J1940; J2919; 80320